=== PATIENT | female | born 1940 | race Caucasian/White ===

== ENCOUNTER 2016-08-03 04:52 | Emergency (ER) | payer OTHER ==
[2016-08-03] MEDS ORDERED: ZOFRAN IV ONE (04:59)
[2016-08-03] MEDS ORDERED: DILAUDID IV ONE ×2 (04:59→08:15)
--- NOTE | 2016-08-03 05:03 | PROVIDER DOCUMENTATION ---
HPI-Musculoskeletal Pain/Inj <Paula Gayle - Last Filed: 08/03/16 08:45> - GENERAL Source: patient, family, EMS <Manoj Mancini - Last Filed: 08/04/16 05:12> - GENERAL Chief Complaint: Extremity Injury Stated Complaint: FALL, UPPER LEG PAIN Time Seen by Provider: 08/03/16 04:54 - HX OF PRESENT ILLNESS-MUSKULOSKELTAL Nature of Presenting Problem: pt fell while going to the bathroom and sustained a very painful injury to her right thigh and is unable to move it or bear wt. She denies other injuries (Manoj Mills) Review of Systems - Adult - REVIEW OF SYSTEMS - ADULT Constitutional: denies: chills, fever Eyes: denies: discharge Ears, Nose, Mouth & Throat: denies: ear pain, sinus problem, throat pain Cardiovascular: denies: chest pain Respiratory: denies: chronic cough, shortness of breath Gastrointestinal: denies: abdominal pain, diarrhea, nausea, vomiting Genitourinary: denies: dysuria, frequency, flank pain Musculoskeletal: denies: back pain, neck pain Integumentary: denies: rash Neurological: denies: headache/migraines, numbness, paresthesia All Other Systems: Reviewed and Negative <Manoj Mancini - Last Filed: 08/04/16 05:12> Past History - Adult - PAST MEDICAL HISTORY-ADULT Review of Records: reports: Old Records Reviewed, Nursing Assessment Review, Medications Reviewed, Social history reviewed & non-contributory. 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 negative: scleral icterus Head, Ears, Nose, Mouth & Throat: normocephalic/atraumatic Neck: non-tender, full range of motion, supple, normal inspection Respiratory: chest non-tender, lungs clear, normal breath sounds, no pleuratic chest pain, no respiratory distress, no accessory muscle use Cardiovascular: regular rate, rhythm, no edema, no murmur Abdominal Exam: normal bowel sounds, non tender, soft, no organomegaly, no pulsatile mass Back Exam: normal inspection, no CVA tenderness, no vertebral tenderness Extremity: other (marked tenderness of most of right thigh. Pt has right distal foot amputated) Integumentary: normal color, warm/dry Neurologic: geographic information scientist II-XII nml as tested, grossly normal, no motor/sensory deficits Psych/Mental Status: normal mood/affect, normal thought content, normal thought process, oriented x 3 <Manoj Manciin - Last Filed: 08/04/16 05:12> Progress - EKG 1 Time of EKG reading by physician:: 06:13 EKG Read and Signed by:: Jesse Tong EKG Interpretation (*Must complete 3 of following elements*): Abnormal Rate: 49 Rhythm: sinus bradycardia QRS: normal Comments: Atrial fibrillation w/slow ventricular response <Paula Gayle - Last Filed: 08/03/16 08:45> - CHANGE OF SHIFT REPORT (ED Provider) Report Given and Care Transferred to:: Dr Tong Time of Transfer: 06:00 Items Pending: Labs, XRAY Results Tentative Impression of Patient: right femur fracture <Manoj Mancini - Last Filed: 08/04/16 05:12> Departure <Paula Gayle - Last Filed: 08/03/16 08:45> <Manoj Mancini - Last Filed: 08/04/16 05:12> - Departure [facility]position[facility] Condition: Fair Referrals: Byron Lyons MD [Primary Care Provider] - Physician Attestation
[2016-08-03 06:35] LABS: MANUAL DIFF NEEDED? NO
[2016-08-03 06:44] LABS: BASO% 0.8 % (0.0-0.8); EOS# 0.27 X1000 (0.0-0.7); EOS% 3.2 % (0.0-10.0); HEMATOCRIT 33.8 % (37.0-47.0); HEMOGLOBIN 10.6 g/dL (12.0-16.0); LYMPH# 1.47 X1000 (1.2-3.4); LYMPH% 17.6 % (20.5-51.1); MCH 31.2 PG (27-31); MCHC 31.4 g/dL (33-37); MCV 99.4 FL (81-99); MONO# 0.74 X1000 (0.11-0.59); MONO% 8.9 % (1.7-9.3); MPV 9.4 FL (7.4-10.4); NEUT% 69.5 % (42.2-75.2); PLT 257 X1000 (130-400)
[2016-08-03 06:45] LABS: URINE CULTURE NEEDED? NO; URINE SOURCE CATH
[2016-08-03 06:46] LABS: URINE MICRO REVIEW NEEDED? NO
[2016-08-03 06:50] LABS: INR 5.89; PROTIME 63.6 Seconds (9.2-11.7)
[2016-08-03 06:51] LABS: BILIRUBIN URINE NEGATIVE (NEGATIVE); BLOOD URINE NEGATIVE (NEGATIVE); COLOR YELLOW; GLUCOSE URINE NEGATIVE (NEGATIVE); LEUKOCYTES URINE NEGATIVE (NEGATIVE); NITRITE URINE NEGATIVE (NEGATIVE); PROTEIN URINE NEGATIVE (NEGATIVE); SP GRAVITY URINE 1.019; TURBIDITY URINE CLEAR (CLEAR); UROBILINOGEN URINE NORMAL (NORMAL)
[2016-08-03 06:53] LABS: UR EPITHELIAL CELLS <10 /HPF (<10); URINE BACTERIA NEGATIVE /HPF; URINE RBC <10 /HPF (<10); URINE WBC <10 /HPF (<10)
[2016-08-03 07:12] LABS: ALBUMIN 3.6 g/dL (3.5-5.0); CALCIUM 9.1 mg/dL (8.8-10.2); POTASSIUM 4.3 mmol/L (3.5-5.1); TOTAL BILIRUBIN 0.23 mg/dL (0.20-1.00); TOTAL PROTEIN 6.2 g/dL (6.3-8.3)
--- NOTE | 2016-08-03 07:36 | EKG Report ---
Test Performed on : 08/03/2016 06:13:33 AM Test Reason : preop Blood Pressure : / mmHG Vent. Rate : 049 BPM Atrial Rate : 053 BPM P-R Int : 000 ms QRS Dur : 094 ms QT Int : 490 ms P-R-T Axes : 000 040 052 degrees QTc Int : 442 ms Atrial fibrillation. with slow ventricular response. Abnormal ECG When compared with ECG of 17-DEC-2014 12:38, Nonspecific T wave abnormality no longer evident in Lateral leads Unconfirmed Result
[2016-08-03 07:56] VITALS: BP 126/56
--- NOTE | 2016-08-03 09:13 | Diag Imaging Result Document ---
PROCEDURE NAME: FEMUR MIN 2 VIEWS RIGHT - 08/03/2016 PLAIN RADIOGRAPHS OF THE RIGHT FEMUR, 4 VIEWS: COMPARISON: None available. FINDINGS: The bones are osteopenic. There is a fracture through the mid shaft of the femur with significant posterior displacement of the distal fragment. There is a questionable small cortical defect at the inferior pubic ramus on the right, which may indicate a nondisplaced fracture. There is also a small cortical defect involving the distal metaphysis of the femur suggesting a separate nondisplaced fracture. There is atherosclerotic calcification in the thigh on the right. IMPRESSION: Fractures involving the femur and questionable fracture of the inferior pubic ramus on the right as described.
--- NOTE | 2016-08-03 12:10 | Diag Imaging Result Document ---
PROCEDURE NAME: CHEST-1 VIEW - 08/03/2016 SINGLE FRONTAL RADIOGRAPH OF THE CHEST: COMPARISON: 02/13/2015. FINDINGS: Inspiration is suboptimal. Otherwise, the lungs are grossly clear. There is no definite pleural fluid collection. Cardiac silhouette appears somewhat prominent but stable. Central vasculature is unremarkable. IMPRESSION: Stable cardiomegaly and low lung volumes but no definite acute pathology.
== END 2016-08-03 09:20 | disposition short-term general hospital (02) ==
LOC: EDBD → ED 04:52
DX: S72.301A Unspecified fracture of shaft of right femur, initial encounter for closed fracture (principal); R94.31 Abnormal electrocardiogram [ECG] [EKG]; M79.651 Pain in right thigh; R06.02 Shortness of breath; R07.89 Other chest pain; I48.91 Unspecified atrial fibrillation; I50.9 Heart failure, unspecified; M19.90 Unspecified osteoarthritis, unspecified site; Z79.899 Other long term (current) drug therapy; G89.29 Other chronic pain; G30.9 Alzheimer's disease, unspecified; F02.80 Dementia in other diseases classified elsewhere, unspecified severity, without behavioral disturbance, psychotic disturbance, mood disturbance, and anxiety; F32.9 Major depressive disorder, single episode, unspecified; Z79.82 Long term (current) use of aspirin; Z79.01 Long term (current) use of anticoagulants; Z89.431 Acquired absence of right foot; W19.XXXA Unspecified fall, initial encounter
CPT/HCPCS: 71010; 80053; 81001; 85025; 85610; 86850; 86900; 86901; 93005; 96374; 96376; J1170; J2405

== ENCOUNTER 2018-07-25 19:45 | Inpatient (IN) ==
[2018-07-25 20:17] LABS: BASO# 0.02 X1000 (0.0-0.2); BASO% 0.3 % (0.0-0.8); EOS# 0.05 X1000 (0.0-0.7); EOS% 0.6 % (0.0-10.0); HEMOGLOBIN 10.6 g/dL (12.0-16.0); IMM GRAN# 0.04 X1000 (0.0-0.04); IMM GRAN% 0.5 % (0.0-0.5); LYMPH# 1.56 X1000 (1.2-3.4); LYMPH% 19.8 % (20.5-51.1); MCH 31.5 PG (27-31); MCHC 32.1 g/dL (33-37); MCV 98.2 FL (81-99); MONO# 0.98 X1000 (0.11-0.59); MONO% 12.5 % (1.7-9.3); MPV 9.1 FL (7.4-10.4); NEUT# 5.21 X1000 (1.4-6.5); NEUT% 66.3 % (42.2-75.2); PLT 270 X1000 (130-400); RBC 3.36 XMIL (4.2-5.4); WBC 7.86 X1000 (4.8-10.8)
--- NOTE | 2018-07-25 20:35 | Diag Imaging Result Doc PS360 ---
EXAM: CT HEAD W/O CONTRAST INDICATION: stroke like TECHNIQUE: This exam was performed using automated exposure control, adjustment of mA or kV according to patient size, and/or use of iterative reconstruction technique. COMPARISON: None. FINDINGS: There is excessive motion artifact, which may limit sensitivity. There is patchy low attenuation in the periventricular and subcortical white matter suggesting moderate to advanced microangiopathy. There is probably mild focal encephalomalacia involving the left frontal lobe. There is age-appropriate diffuse brain atrophy. There is no definite acute infarct given the limited sensitivity of CT versus MRI. There is no discrete intracranial mass, mass effect, or intracranial hemorrhage. The surrounding soft tissues and bony structures are essentially unremarkable. IMPRESSION: Chronic appearing changes as described but no definite acute intracranial pathology by CT. Electronically signed by Isak Vazquez 07/25/2018 8:33 PM
[2018-07-25 20:36] LABS: AGAP 16; ALBUMIN 3.7 g/dL (3.5-5.0); ALKALINE PHOSPHATASE 74 U/L (32-104); BUN 15 mg/dL (8-22); CHLORIDE 100 mmol/L (98-107); COSMO 285; CREATININE 0.8 mg/dL (0.5-0.9); ESTIMATED GFR > 60; GLUCOSE 126 mg/dL (70-104); GOT 16 U/L (10-30); GPT 6 U/L (10-36); INR 1.34; POTASSIUM 3.6 mmol/L (3.5-5.1); PROTIME 17.3 Seconds (11.0-16.0); SODIUM 142 mmol/L (136-145); TCO2 26 mmol/L (25-35); TOTAL PROTEIN 6.7 g/dL (6.3-8.3)
[2018-07-25 20:37] LABS: PTT 54.1 Seconds (22.3-41.8)
[2018-07-25 20:40] LABS: BILIRUBIN URINE NEGATIVE (NEGATIVE); BLOOD URINE 2+ (NEGATIVE); CLARITY SL. CLOUDY (CLEAR); COLOR YELLOW; GLUCOSE URINE NEGATIVE (NEGATIVE); KETONE URINE 1+(Small) mg/dL (NEGATIVE); LEUKOCYTES URINE NEGATIVE (NEGATIVE); NITRITE URINE NEGATIVE (NEGATIVE); UROBILINOGEN URINE NORMAL
[2018-07-25 20:41] LABS: URINE BACTERIA 3+ /HFP; URINE CAST NONE SEEN /LPF; URINE CRYSTAL NONE SEEN /HPF; URINE EPITHELIAL CELLS <10 /HPF (<10); URINE RBC <10 /HPF (<10); URINE SOURCE CATH; URINE WBC <10 /HPF (<10); URINE YEAST NONE SEEN /HPF
[2018-07-25 20:49] LABS: UR AMPHETAMINES QUAL NONE DETECTED (NONE DETECT); UR BARBITUATES QUAL NONE DETECTED (NONE DETECT); UR BENZODIAZEPIN QUAL NONE DETECTED (NONE DETECT); UR CANNABINOIDS QUAL NONE DETECTED (NONE DETECT); UR COCAINE QUAL NONE DETECTED (NONE DETECT); UR METHADONE QUAL NONE DETECTED (NONE DETECT); UR METHAMPHETAMINE QUAL NONE DETECTED (NONE DETECT); UR OPIATES QUAL PRESUMPTIVE POSITIVE (NONE DETECT); UR OXYCODONE QUAL NONE DETECTED (NONE DETECT); UR PCP QUAL NONE DETECTED (NONE DETECT); UR PROPOXYPHENE QUAL NONE DETECTED (NONE DETECT); UR TCA QUAL NONE DETECTED (NONE DETECT)
--- NOTE | 2018-07-25 21:10 | Diag Imaging Result Doc PS360 ---
EXAM: CHEST-PORTABLE INDICATION: stroke like TECHNIQUE: One view COMPARISON: 04/22/2018 FINDINGS: Inspiration is very suboptimal. The central vasculature appears somewhat prominent. This is in part due to crowding from poor inspiration but there is also probably a component of pulmonary venous congestion. There is no discrete pleural fluid collection or pneumothorax. Cardiac silhouette is borderline prominent but stable. IMPRESSION: Low lung volumes and possible mild pulmonary venous congestion. Electronically signed by Isak Vazquez 07/25/2018 9:08 PM
[2018-07-25] MEDS ORDERED: ZOFRAN IV ONE (21:45)
[2018-07-25] MEDS ORDERED: APRESOLINE IV ONE (21:46)
[2018-07-25 23:13] LABS: BE 0.4 mmoll (-3.0-3.0); BLOOD TYPE ARTERIAL; HCO3-(ACT) 25.2 mmoll (20.0-26.0); METHB 1.6 % (0.0-1.5); O2HB 94.3 % (95.0-99.0); PO2(98.6) 114 mmHg (60-100); SAMPLE BLOOD; SAO2 97.5 % (95.0-100.0); THB 11.9 g/dL (11.5-17.4)
[2018-07-25 23:15] LABS: ALLEN TEST YES; MODALITY CANNULA; PCO2(98.6) 112 mmHg (35-45); pH(98.6) 7.08 (7.35-7.45)
[2018-07-26 00:41] LABS: BE 3.6 mmoll (-3.0-3.0); BLOOD TYPE ARTERIAL; HCO3-(ACT) 27.7 mmoll (20.0-26.0); METHB 1.4 % (0.0-1.5); O2(CT) 15.5 mL/dL (15.0-23.0); O2HB 95.9 % (95.0-99.0); PO2(98.6) 154 mmHg (60-100); SAMPLE BLOOD; SAO2 99.4 % (95.0-100.0); THB 11.3 g/dL (11.5-17.4); pH(98.6) 7.31 (7.35-7.45)
[2018-07-26 01:06] LABS: ALLEN TEST YES; MODALITY BI PAP; PCO2(98.6) 62 mmHg (35-45)
[2018-07-26] MEDS ORDERED: NS 1,000 ML IV ONE (01:08)
--- NOTE | 2018-07-26 02:14 | PROVIDER DOCUMENTATION ---
This chart was entered by Vivienne Chacko Scribe, acting as scribe for Landon Rea MD. HPI-Neurological Disorder - General Chief Complaint: Stroke-Like Symptoms Stated Complaint: "stroke like symptoms" Time Seen by Provider: 07/25/18 20:01 Source: EMS Allergies/Adverse Reactions: Patient Allergies Allergy/AdvReac Type Severity Reaction Status Date / Time Iodinated Contrast- Oral and Allergy Unknown Verified 04/22/18 16:18 IV Dye [IV Dye] Latex, Natural Rubber Allergy RASH Verified 04/22/18 16:18 Home Medications: Home Medication List Medication Instructions Recorded Confirmed Last Taken Type Calcium Citrate/Vitamin D 1 each PO DAILY 09/06/16 04/22/18 01/23/18 05:00 History [Citracal + D] Magnesium 250 mg PO DAILY 09/06/16 04/22/18 01/23/18 05:00 History Acetaminophen [Tylenol] 650 mg PO Q6H PRN PRN #0 tablet 09/09/16 04/22/18 17:00 Rx Spironolactone 25 mg PO DAILY #30 tablet 09/09/16 04/22/18 01/23/18 05:00 Rx Losartan Potassium 100 mg PO DAILY 12/26/17 04/22/18 01/22/18 08:00 History Furosemide [Lasix] 40 mg PO BID 01/16/18 04/22/18 01/23/18 05:00 History Amoxicillin/Pot Clavulanate 875 mg PO BID tablet 01/19/18 04/22/18 01/22/18 08: 00 Rx [Augmentin] Carvedilol 6.25 mg PO BID #60 tab 01/19/18 04/22/18 01/23/18 05:00 Rx Hydralazine [Apresoline] 50 mg PO TID #90 tab 01/19/18 04/22/18 01/23/18 05:00 Rx Hydrocodone/APAP 7.5 mg/325 mg 1 each PO Q6H PRN #12 tablet 01/23/18 04/22/18 Unknown Rx [Linn-7.5] Apixaban [Eliquis] 5 mg PO BID 04/22/18 04/22/18 Unknown History CefDINIR [Omnicef] 300 mg PO BID #10 cap 04/22/18 Unknown Rx - History of Present Illness-Neuro Nature of Presenting Problem: Patient is a 78 year old female who presents to the ED via EMS with stroke like symptoms. EMS states patient has a left side gaze and will not follow commands. EMS states patient's daughter stated patient was last seen normal 3 hours ago. EMS states patient is currently on Eliquis but does not take it like she should. Patient is alert but does not follow commands. Severity: reports: moderate Onset/Duration: reports: 1-3 hours ago (3 hours ago) Timing: reports: still present Context: reports: other (left side gaze) Character of Altered Mental Status: reports: N/A Any recent trauma/injury?: reports: none Cognitive Baseline: alert but confused Gait Baseline: walks without assistance Associated Symptoms: reports: denies symptoms Similar Symptoms Previously?: No Recently seen or treated by another doctor?: No Review of Systems - Adult - REVIEW OF SYSTEMS - ADULT ROS:: unobtainable per condition Constitutional: reports: no symptoms reported Eyes: reports: no symptoms reported Ears, Nose, Mouth & Throat: reports: no symptoms reported Cardiovascular: reports: no symptoms reported Respiratory: reports: no symptoms reported Gastrointestinal: reports: no symptoms reported Genitourinary: reports: no symptoms reported Musculoskeletal: reports: no symptoms reported Integumentary: reports: no symptoms reported Neurological: reports: no symptoms reported Psychiatric: reports: no symptoms reported Endocrine: reports: no symptoms reported Hematologic/Lymphatic: reports: no symptoms reported Allergic/Immunologic: reports: no symptoms reported All Other Systems: Reviewed and Negative Past History - Adult - PAST MEDICAL HISTORY-ADULT Review of Records: reports: Nursing Assessment Review, Medications Reviewed, Social history reviewed & non-contributory. Major Childhood Illnesses: reports: denies history Cardiovascular: reports: cardiac disease, A-Fib, CHF (ECHO 11/12 50%), HTN Respiratory: reports: other (chf) Gastrointestinal: reports: denies history Obstetrical/Gynecological: reports: denies history Genitourinary: reports: denies history Musculoskeletal: reports: arthritis, chronic pain Neurological: reports: Alzheimer's, CVA, dementia, TIA Psychiatric: reports: depression Endocrine/Immune: reports: denies history Other Conditions: reports: denies history - PRIOR SURGERIES/PROCEDURES Surgical/Procedure History: reports: appendectomy, cholecystectomy, hysterectomy , other (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) - IMMUNIZATION STATUS Childhood Immunizations: See Nurse Assessment Flu Vaccine: See Nurse Assessment - FAMILY HISTORY Family History: reviewed, not pertinent - SOCIAL HISTORY Smoking: cigarettes (former) Substance Use: denies Living Situation: family Physical Exam- Neurological - Physical Exam-Neuro General Appearance: alert Eye Exam: right eye: normal inspection, left eye: other (pinpoint pupil ) HENMT: normal ENT inspection Head Injury: no evidence of injury Respiratory: chest non-tender, lungs clear, normal breath sounds Cardiovascular: normal peripheral pulses, regular rate, rhythm Abdominal Exam: normal bowel sounds, non tender, soft Extremity: other (3 + pitting edema to RLE and 2 + pitting edema to LLE) senior human resources representative Exam: other (pinpoint pupil to left eye and conjugate gaze to left) Motor/Sensory: other (unable to assess per patient's condition) Neurologic: other (unable to assess per patient's condition) Integumentary: normal color, normal turgor, warm/dry Psych/Mental Status: other (unable to assess per patient's condition) Progress - PLAN OF CARE/RESULTS Progress/Plan/Lab Results: Vital Signs - 8 hr 07/25/18 20:14 07/25/18 21:12 07/25/18 21:27 Temperature 98.9 F Pulse Rate 74 58 L Respiratory Rate 22 21 Blood Pressure 205/97 228/97 O2 Sat by Pulse Oximetry 95 98 07/25/18 21:30 07/25/18 21:47 07/25/18 22:12 Temperature 98.9 F Pulse Rate 87 Respiratory Rate 16 Blood Pressure 224/135 O2 Sat by Pulse Oximetry 97 07/25/18 22:59 07/25/18 23:16 07/25/18 23:19 Temperature Pulse Rate 80 71 Respiratory Rate 7 L 9 L Blood Pressure 124/70 128/62 O2 Sat by Pulse Oximetry 100 100 96 07/25/18 23:20 07/25/18 23:30 07/25/18 23:31 Temperature Pulse Rate 77 73 76 Respiratory Rate 8 L 7 L 6 L Blood Pressure 127/50 O2 Sat by Pulse Oximetry 100 99 100 07/25/18 23:40 07/25/18 23:46 07/25/18 23:50 Temperature Pulse Rate 74 73 73 Respiratory Rate 26 H 20 24 Blood Pressure 115/47 O2 Sat by Pulse Oximetry 100 100 100 07/26/18 00:00 07/26/18 00:01 07/26/18 00:10 Temperature Pulse Rate 72 67 66 Respiratory Rate 20 27 H 21 Blood Pressure 112/48 O2 Sat by Pulse Oximetry 100 100 100 07/26/18 00:17 07/26/18 00:20 07/26/18 00:30 Temperature Pulse Rate 78 88 88 Respiratory Rate 17 15 17 Blood Pressure 157/77 O2 Sat by Pulse Oximetry 98 100 96 07/26/18 00:39 07/26/18 00:40 07/26/18 00:47 Temperature Pulse Rate 76 76 68 Respiratory Rate 21 18 19 Blood Pressure 132/78 162/68 O2 Sat by Pulse Oximetry 99 83 L 07/26/18 00:50 07/26/18 01:00 07/26/18 01:02 Temperature Pulse Rate 68 67 69 Respiratory Rate 23 26 H 28 H Blood Pressure 156/65 O2 Sat by Pulse Oximetry 70 L Laboratory Results - last 24 hr 07/25/18 07/25/18 07/25/18 20:05 20:05 20:05 WBC 7.86 RBC 3.36 L Hgb 10.6 L Hct 33.0 L MCV 98.2 MCH 31.5 H MCHC 32.1 L RDW Std Deviation 13.0 Plt Count 270 MPV 9.1 Immature Gran % (Auto) 0.5 Neut % (Auto) 66.3 Lymph % (Auto) 19.8 L Dukes % (Auto) 12.5 H Eos % (Auto) 0.6 Baso % (Auto) 0.3 Immature Gran # (Auto) 0.04 Neut # (Auto) 5.21 Lymph # (Auto) 1.56 Dukes # (Auto) 0.98 H Eos # (Auto) 0.05 Baso # (Auto) 0.02 PT INR PTT (Actin FS) Specimen Type Sample Site pH pCO2 pO2 HCO3 Base Excess Oxyhemoglobin ABG O2 Sat (Calculated) ABG O2 Saturation ABG Carboxyhemoglobin ABG Methemoglobin Kenny Test A-a O2 Difference Total Hemoglobin Lactate Blood Gas Modality FiO2 % Sodium 142 Potassium 3.6 Chloride 100 Carbon Dioxide 26 Anion Gap 16 BUN 15 Creatinine 0.8 Estimated GFR/1.73 m2 > 60 BUN/Creatinine Ratio 19 Glucose 126 H POC Glucose Calculated Osmolality 285 Calcium 10.0 Total Bilirubin 0.70 AST 16 ALT 6 L Alkaline Phosphatase 74 Troponin T < 0.010 Idv-[id number]-Wbzsxoketpa Pept Total Protein 6.7 Albumin 3.7 Globulin 3.0 Albumin/Globulin Ratio 1.0 Urine Source Urine Color Urine Clarity Urine pH Ur Specific [place] Urine Protein Urine Ketones Urine Blood Urine Nitrite Urine Bilirubin Urine Urobilinogen Urine Microscopic RBC Urine WBC Urine Microscopic WBC Ur Epithelial Cells Urine Crystals Urine Bacteria Urine Casts Urine Yeast Urine Glucose Urine Opiates Screen Ur Oxycodone Screen Urine Methadone Screen U Propoxyphene Qual Ur Barbituates Screen Ur Tricyclics Screen Ur Phencyclidine Scrn Ur Amphetamines Screen U Methamphetamines Scrn U Benzodiazepines Scrn Urine Cocaine Screen U Cannabinoids Screen 07/25/18 07/25/18 07/25/18 20:05 20:05 20:20 WBC RBC Hgb Hct MCV MCH MCHC RDW Std Deviation Plt Count MPV Immature Gran % (Auto) Neut % (Auto) Lymph % (Auto) Dukes % (Auto) Eos % (Auto) Baso % (Auto) Immature Gran # (Auto) Neut # (Auto) Lymph # (Auto) Dukes # (Auto) Eos # (Auto) Baso # (Auto) PT 17.3 H INR 1.34 PTT (Actin FS) 54.1 H Specimen Type Sample Site pH pCO2 pO2 HCO3 Base Excess Oxyhemoglobin ABG O2 Sat (Calculated) ABG O2 Saturation ABG Carboxyhemoglobin ABG Methemoglobin Kenny Test A-a O2 Difference Total Hemoglobin Lactate Blood Gas Modality FiO2 % Sodium Potassium Chloride Carbon Dioxide Anion Gap BUN Creatinine Estimated GFR/1.73 m2 BUN/Creatinine Ratio Glucose POC Glucose Calculated Osmolality Calcium Total Bilirubin AST ALT Alkaline Phosphatase Troponin T [id number]-Zajrwpfvkuy Pept 41520 H Total Protein Albumin Globulin Albumin/Globulin Ratio Urine Source CATH Urine Color YELLOW Urine Clarity SL. CLOUDY A Urine pH 5.0 Ur Specific [place]flower 1.020 Urine Protein 3+(500 mg/dL) A Urine Ketones 1+(Small) A Urine Blood 2+ A Urine Nitrite NEGATIVE Urine Bilirubin NEGATIVE Urine Urobilinogen NORMAL Urine Microscopic RBC <10 Urine WBC NEGATIVE Urine Microscopic WBC <10 Ur Epithelial Cells <10 Urine Crystals NONE SEEN Urine Bacteria 3+ Urine Casts NONE SEEN Urine Yeast NONE SEEN Urine Glucose NEGATIVE Urine Opiates Screen Ur Oxycodone Screen Urine Methadone Screen U Propoxyphene Qual Ur Barbituates Screen Ur Tricyclics Screen Ur Phencyclidine Scrn Ur Amphetamines Screen U Methamphetamines Scrn U Benzodiazepines Scrn Urine Cocaine Screen U Cannabinoids Screen 07/25/18 07/25/18 07/25/18 20:20 20:45 22:10 WBC RBC Hgb Hct MCV MCH MCHC RDW Std Deviation Plt Count MPV Immature Gran % (Auto) Neut % (Auto) Lymph % (Auto) Dukes % (Auto) Eos % (Auto) Baso % (Auto) Immature Gran # (Auto) Neut # (Auto) Lymph # (Auto) Dukes # (Auto) Eos # (Auto) Baso # (Auto) PT INR PTT (Actin FS) Specimen Type ARTERIAL Sample Site R RADIAL pH 7.08 L* pCO2 112 H* pO2 114 H HCO3 25.2 Base Excess 0.4 Oxyhemoglobin 94.3 L ABG O2 Sat (Calculated) 16.0 ABG O2 Saturation 97.5 ABG Carboxyhemoglobin 1.80 ABG Methemoglobin 1.6 H Kenny Test YES A-a O2 Difference 60.0 Total Hemoglobin 11.9 Lactate 0.80 Blood Gas Modality CANNULA FiO2 % 44.0 Sodium Potassium Chloride Carbon Dioxide Anion Gap BUN Creatinine Estimated GFR/1.73 m2 BUN/Creatinine Ratio Glucose POC Glucose 124 H Calculated Osmolality Calcium Total Bilirubin AST ALT Alkaline Phosphatase Troponin T [id number]-B-Sbjvuwdtspc Pept Total Protein Albumin Globulin Albumin/Globulin Ratio Urine Source Urine Color Urine Clarity Urine pH Ur Specific [place] Urine Protein Urine Ketones Urine Blood Urine Nitrite Urine Bilirubin Urine Urobilinogen Urine Microscopic RBC Urine WBC Urine Microscopic WBC Ur Epithelial Cells Urine Crystals Urine Bacteria Urine Casts Urine Yeast Urine Glucose Urine Opiates Screen PRESUMPTIVE POSITIVE A Ur Oxycodone Screen NONE DETECTED Urine Methadone Screen NONE DETECTED U Propoxyphene Qual NONE DETECTED Ur Barbituates Screen NONE DETECTED Ur Tricyclics Screen NONE DETECTED Ur Phencyclidine Scrn NONE DETECTED Ur Amphetamines Screen NONE DETECTED U Methamphetamines Scrn NONE DETECTED U Benzodiazepines Scrn NONE DETECTED Urine Cocaine Screen NONE DETECTED U Cannabinoids Screen NONE DETECTED 07/26/18 00:15 WBC RBC Hgb Hct MCV MCH MCHC RDW Std Deviation Plt Count MPV Immature Gran % (Auto) Neut % (Auto) Lymph % (Auto) Dukes % (Auto) Eos % (Auto) Baso % (Auto) Immature Gran # (Auto) Neut # (Auto) Lymph # (Auto) Dukes # (Auto) Eos # (Auto) Baso # (Auto) PT INR PTT (Actin FS) Specimen Type ARTERIAL Sample Site R RADIAL pH 7.31 L pCO2 62 H* pO2 154 H HCO3 27.7 H Base Excess 3.6 H Oxyhemoglobin 95.9 ABG O2 Sat (Calculated) 15.5 ABG O2 Saturation 99.4 ABG Carboxyhemoglobin 2.10 ABG Methemoglobin 1.4 Kenny Test YES A-a O2 Difference 54.0 Total Hemoglobin 11.3 L Lactate 1.10 Blood Gas Modality BI PAP FiO2 % 40.0 Sodium Potassium Chloride Carbon Dioxide Anion Gap BUN Creatinine Estimated GFR/1.73 m2 BUN/Creatinine Ratio Glucose POC Glucose Calculated Osmolality Calcium Total Bilirubin AST ALT Alkaline Phosphatase Troponin T Dof-F-Ybclssngycg Pept Total Protein Albumin Globulin Albumin/Globulin Ratio Urine Source Urine Color Urine Clarity Urine pH Ur Specific [place] Urine Protein Urine Ketones Urine Blood Urine Nitrite Urine Bilirubin Urine Urobilinogen Urine Microscopic RBC Urine WBC Urine Microscopic WBC Ur Epithelial Cells Urine Crystals Urine Bacteria Urine Casts Urine Yeast Urine Glucose Urine Opiates Screen Ur Oxycodone Screen Urine Methadone Screen U Propoxyphene Qual Ur Barbituates Screen Ur Tricyclics Screen Ur Phencyclidine Scrn Ur Amphetamines Screen U Methamphetamines Scrn U Benzodiazepines Scrn Urine Cocaine Screen U Cannabinoids Screen Orders Category Date Time Status Cardiac Monitoring DIRECTED Care 07/25/18 19:46 Active Finger Stick Blood Sugar (ED) DIRECTED Care 07/25/18 19:46 Active Misc. NRSG Communication Order DIRECTED Care 07/25/18 19:46 Active Saline Loc NOW Care 07/25/18 19:46 Active CHEST-PORTABLE [RAD] Stat Exams 07/25/18 19:[address] HEAD W/O CONTRAST [CT] Stat Exams 07/25/18 19:46 Completed ABG [RESP] Routine Lab 07/25/18 22:10 Completed ABG [RESP] Routine Lab 07/26/18 00:15 Completed BNP [PRO B-NATRIURETIC PEPTIDE] Stat Lab 07/25/18 20:05 Completed CBC WITH ELECTRONIC DIFF [HEME] Stat Lab 07/25/18 20:05 Completed COMPREHENSIVE METABOLIC PANEL [CHEM] Stat Lab 07/25/18 20:05 Completed PROTIME WITH INR [COAG] Stat Lab 07/25/18 20:05 Completed PTT [COAG] Stat Lab 07/25/18 20:05 Completed TROPONIN T Stat Lab 07/25/18 20:[address] W/POSS RFLX CULT [URINALYSIS] Stat Lab 07/25/18 20:20 Completed URINE CULTURE [RM] Routine Lab 07/25/18 20:41 Received URINE DRUG SCREEN PL Stat Lab 07/25/18 20:20 Completed Hydralazine [Apresoline] Med 07/25/18 21:46 Discontinued 10 mg IV NOW ONE Ondansetron [Zofran] Med 07/25/18 21:45 Discontinued 4 mg IV NOW ONE BIPAP Stat Oth 07/25/18 22:55 Active EKG [EKG] Stat Ther 07/25/18 19:46 Ordered Result Diagrams: 07/25/18 20:05 07/25/18 20:05 - REASSESSMENT Reassessment #1 Time Reassessed: 20:58 Status: other (patient's family reports patient's last normal was 2 days ago.) - EKG 1 Time of EKG reading by physician:: 20:07 EKG Read and Signed by:: Landon Rea EKG Interpretation (*Must complete 3 of following elements*): Abnormal Rate: 62 Rhythm: atrial fibrillation Comments: nonspecific ST and T wave abnormality. - XRAY 1 XRAY Study: Chest Impression: See EMR Report (EXAM: CHEST-PORTABLE INDICATION: stroke like TECHNIQUE: One view COMPARISON: 04/22/2018 FINDINGS: Inspiration is very suboptimal. The central vasculature appears somewhat prominent. This is in part due to crowding from poor inspiration but there is also probably a component of pulmonary venous congestion. There is no discrete pleural fluid collection or pneumothorax. Cardiac silhouette is borderline prominent but stable. IMPRESSION: Low lung volumes and possible mild pulmonary venous congestion. Electronically signed by Isak Vazquez 07/25/2018 9:08 PM 07/25/182107 Interpreting Physician: Isak Vazquez MD Dictated Date/Time: 07/25/182106 cc: Landon Rea MD; Byron Lyons MD) - CT/MRI 1 CT Study: Head Impression: See EMR Report ( EXAM: CT HEAD W/O CONTRAST INDICATION: stroke like TECHNIQUE: This exam was performed using automated exposure control, adjustment of mA or kV according to patient size, and/or use of iterative reconstruction technique. COMPARISON: None. FINDINGS: There is excessive motion artifact, which may limit sensitivity. There is patchy low attenuation in the periventricular and subcortical white matter suggesting moderate to advanced microangiopathy. There is probably mild focal encephalomalacia involving the left frontal lobe. There is age-appropriate diffuse brain atrophy. There is no definite acute infarct given the limited sensitivity of CT versus MRI. There is no discrete intracranial mass, mass effect, or intracranial hemorrhage. The surrounding soft tissues and bony structures are essentially unremarkable. IMPRESSION: Chronic appearing changes as described but no definite acute intracranial pathology by CT. Electronically signed by Isak Vazquez 07/25/2018 8:33 PM 07/25/[id number] Interpreting Physician: Isak Vazquez MD Dictated Date/Time: 07/25/182029 cc: Landon Rea MD; Byron Lyons MD) - CONSULTS/PCP/HOSPITALIST Notification #1 *Consult/PCP/Hospitalist*: [facility] Time Discussed: 20:59 Reason/Comments: Dr. Rea consulted with [facility] about patient. Consult Disposition: other (will page Neuro.) #2 Consult: Dr. Romano ([place]) Time Discussed: 21:10 Reason/Comments: Dr. Rea consulted with Dr. Romano about patient. Consult Disposition: other (Dr. Romano states patient needs supportive care.) #3 Consult: Dr. Davis Time Discussed: 21:26 Reason/Comments: Dr. Rea consulted with Dr. Davis about patient. Consult Disposition: Admit Departure - Departure Date of Disposition Decision: 07/25/18 Time of Disposition Decision: 21:33 DIAGNOSIS: CVA (cerebral vascular accident) Disposition: ADMITTED INPATIENT 09 Certified Medical Emergency: Emergent Condition: Fair Referrals and Follow-Ups: Byron Lyons MD [Primary Care Provider] - - Critical Care Note This patient required my direct & personal management of CC.: Yes Total Time (mins): 32 Critical Care Statement: This patient required my direct personal management to treat or rule out processes, the absence of which, could potentiallly result in sudden, clinically significant life or limb threatening deterioration. Attestation - Physician/ LUPILLO Attestation The physician spent face to face time with patient:: Yes Advanced Practice Provider documentation review:: Supervising physician onsite and consulted in the evaluation and care of this patient. The physician did have a face to face encounter with the patient. - NIH Stroke Scale NIH Type: Initial Evaluation Level of Consciousness: 2-Stuporous, requires repeat stimulation to attend LOC Questions (ask month and age): 2-Both Incorrect LOC Commands (ask to open & close eyes;make a fist, let go): 1-Obeys One Correctly Best Gaze (horizontal eye movement): 1-Partial Gaze Palsy (gaze is abnormal in one or both eyes) Visual (use finger movement, counting or visual threat): 0-No Visual Loss Facial Palsy (show teeth or raise eyebrows & close eyes tght: 0-Symmetrical Movement Motor Function-left arm: 2-Some Effort Against [place]flower Motor Function-right arm: 0-Normal Motor Function-left le-No Effort Against [place] Motor Function-right le-No Effort Against [place] Limb Ataxia(coqjly-tymz-fcuezz, or heel to ramsay): 0-Untestable Sensory(pin prick to face,arms,trunk,legs-compare side/side): 0-No Ataxia Best Language(name item/read sentence.Ex-Down to Earth): 2-Severe Aphasia Dysarthria(Pt read words or say words Ex.Mama,Tip-Top,Thanks: 2-Near Unintelligible Extinction and Inattention: 1-Partial Neglect NIH Total Score: 19 Stroke tPA Guidelines - Consultation Candidate for:: NOT A CANDIDATE Reason not a candidate:: on blood thinners. time last seen normal was 2 days ago. hypertensive. This chart was documented by the indicated scribe, (Vivienne Chacko, Ruth Ann) and accurately reflects the services I performed and decisions made by me, Landon Rea MD, as attested by the provider's signature.
--- NOTE | 2018-07-26 04:21 | EKG Report ---
Test Performed on : 07/25/2018 8:07:51 PM Test Reason : stroke like Blood Pressure : / mmHG Vent. Rate : 062 BPM Atrial Rate : 079 BPM P-R Int : 000 ms QRS Dur : 068 ms QT Int : 440 ms P-R-T Axes : 000 040 103 degrees QTc Int : 446 ms Atrial fibrillation. Nonspecific ST and T wave abnormality Abnormal ECG When compared with ECG of 22-APR-2018 14:03, ST now depressed in Anterolateral leads Unconfirmed Result
[2018-07-26] MEDS ORDERED: NORCO-5 PO SCH (10:30)
[2018-07-26] MEDS ORDERED: NORCO-5 PO PRN (10:35)
[2018-07-26] MEDS: OFIRMEV 1000 MG/ISOTONIC SOLN 1,000 MG/100 ML BOTTLE IV PRN ×2 (11:53→21:40)
[2018-07-26] MEDS ORDERED: NS 1,000 ML ONE (11:56)
--- NOTE | 2018-07-26 14:34 | HISTORY AND PHYSICAL ---
ADDENDUM: Patient seen and examined by myself. Full note dictated and discussed with nurse practitioner. Patient presented to the ER. She does have a history of 2 previous strokes, congestive heart failure, and atrial fibrillation. She has a long history of smoking, but stopped several years ago. Upon presenting to the ER, they noted that her symptoms been going on for several hours. Therefore, she was observed. She also has recently been started on Eliquis. Currently, on exam, she is noted to move her left upper and lower extremities, but does not seem to be voluntarily moving her right upper and lower extremities. She is confused, currently on BiPAP. She does turn her head and look to loud noises. Discussed with the family that although she may be in pain currently, giving her pain medication would be problematic at best. She is not awake or alert enough to swallow, and IV medications could cause her to be more drowsy and cause us to miss symptom changes. PLAN: We will admit her to the hospital and will follow. Will begin workup for her acute stroke. cc: Roberto Davis MD
--- NOTE | 2018-07-26 16:15 | HISTORY AND PHYSICAL ---
CHIEF COMPLAINT: Altered mental status. HISTORY OF PRESENT ILLNESS: This is a 78-year-old female with a history of prior CVA, chronic atrial fibrillation, hypertension, diastolic heart failure preserved as well as history of a prior GI bleed on Xarelto. She presented to the emergency room with family members. The daughter stated that she was found after being found altered with a left sided gaze unable to follow commands and left-sided weakness. Reportedly, she was seen 3 hours prior in her normal state. On arrival to the emergency room blood pressures were 205/97 and 228/97 for which she was given 10 of hydralazine. Since the blood pressures have remained in the 1-teens to 150s over 60s to 70s. CT of the head without contrast revealed chronic appearing changes but no definite acute intracranial pathology. In reviewing the chart from the emergency room it looks like around midnight, she began having a decrease in her respiratory rate and she was subsequently placed on BiPAP. Saturations did get as low as 70 prior to BiPAP being placed and she currently remains on BiPAP. PAST MEDICAL HISTORY: 1. Chronic atrial fibrillation. 2. History of CVA x2. 3. Hypertension. 4. Chronic back pain due to severe degenerative disk disease on chronic narcotics. 5. Osteoarthritis. 6. Congestive heart failure with a preserved left ventricular ejection fraction. PAST SURGICAL HISTORY: 1. 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 2. Complete hysterectomy. 3. Breast reduction surgery. 4. Bilateral cataract surgery. SOCIAL HISTORY: She denies any alcohol or illicit drug use. She quit smoking tobacco in 2005. ALLERGIES: IV dye with unknown reaction. Latex which causes a rash. REVIEW OF SYSTEMS: Unable to obtain from the patient. PHYSICAL EXAMINATION: GENERAL: This is a 78-year-old female who is sitting up in the bed on BiPAP, in no distress. VITAL SIGNS: Blood pressure is 165/60 with a heart rate of 77, respirations 20 to 22, temperature is 98.3 degrees oral with O2 saturation 98-100% on BiPAP at 32%. HEENT: Left pupil is pinpoint. Right pupil is 1 to 2 and sluggishly reactive. She does have a gaze to the left. Sclerae are anicteric. Head is normocephalic, atraumatic. Mucous membranes are dry. NECK: Supple. Trachea midline. CARDIOVASCULAR: Irregularly irregular rate and rhythm. S1 and S2 are appreciated without appreciable murmur or gallop. She has bilateral lower extremity edema with peripheral pulses palpable x4. PULMONARY: Breath sounds are diminished throughout. Chest rises and falls symmetrically with respiration. BiPAP is in use. GASTROINTESTINAL: Abdomen is soft, nondistended, with bowel sounds in all 4 quadrants. GENITOURINARY: Gutierrez is patent to bedside bag with patrica urine draining. SKIN: Warm and dry. NEUROLOGIC: The patient is stuporous. She will open her eyes and look toward her name being called, but of note she is hard of hearing, does not have her hearing aids in. Therefore, we are unsure how much she hears to illicit a response. At present, she does not attempt to talk. She does not follow commands. She did open her eyes to pain as well as to her name being called. She has no effort against gravity to left upper or left lower extremity. She has a slight effort against gravity to her right arm and this is not consistent. She does withdraw from pain in all 4 extremities. LABORATORY DATA: WBC is 7.8 with hemoglobin 10.6, hematocrit 33, and platelets 270,000. Sodium is 142, potassium 3.6, BUN 15, creatinine 0.8. [place] 126[place] [address]. Urine drug screen is presumptive positive for opiates. ABGs pH is 7.3 with pCO2 of 62, PO2 154, and bicarb of 27.7. Urine culture reveals no growth. Chest x-ray reveals low lung volumes and possible mild pulmonary venous congestion. CT of the head reveals chronic appearing changes but no definite acute intracranial pathology. EKG reveals atrial fibrillation at a rate of 62. ASSESSMENT: 1. Cerebrovascular accident. 2. Acute hypercarbic respiratory failure. 3. History of hypertension. 4. Diastolic heart failure with a preserved ejection fraction. 5. Chronic atrial fibrillation. 6. Osteoarthritis with chronic back pain on chronic opiates. 7. History of gastrointestinal bleed on Xarelto. 8. Noncompliance with medications. PLAN: The patient has been admitted to the medical/surgical floor. BiPAP is in use as well as telemetry, which we will continue. We will continue neuro checks. She will remain NPO. We will allow for permissive hypertension accepting a blood pressure of 180/90 or less. We will obtain an echocardiogram and a carotid ultrasound bilateral. She has developed diarrhea over the last 12 hours. We will obtain a stool for clostridium difficile. We will continue to trend CBC and CMP. Further treatments pending hospital course. Dictated by CHERELLE Ragsdale for Roberto Davis MD This chart was documented by, CHERELLE Ragsdale and accurately reflects the services performed, treatment plan and medical decisions as attested by the providers signature Roberto Davis MD. cc: CHERELLE Ragsdale MD
[2018-07-26] MEDS ORDERED: ZOFRAN IV PRN (20:49)
--- NOTE | 2018-07-26 21:07 | Diag Imaging Result Doc PS360 ---
EXAM: CHEST-PORTABLE - 07/26/2018 HISTORY: Dyspnea TECHNIQUE: Portable chest COMPARISON: 07/25/2018 FINDINGS: Heart size appears mildly enlarged. Inspiration is somewhat shallow. The lungs appear essentially clear. There has been decrease in vascular congestion. There is no consolidation, substantial pleural effusion, or pneumothorax identified. IMPRESSION: Mild cardiomegaly. Somewhat shallow inspiration. Decrease in vascular congestion. Electronically signed by Bharathi Remy 07/26/2018 9:05 PM
[2018-07-26 21:08] LABS: BASO# 0.01 X1000 (0.0-0.2); BASO% 0.1 % (0.0-0.8); EOS# 0.02 X1000 (0.0-0.7); EOS% 0.2 % (0.0-10.0); HEMATOCRIT 33.2 % (37.0-47.0); HEMOGLOBIN 10.2 g/dL (12.0-16.0); IMM GRAN# 0.05 X1000 (0.0-0.04); IMM GRAN% 0.6 % (0.0-0.5); LYMPH# 1.78 X1000 (1.2-3.4); LYMPH% 19.7 % (20.5-51.1); MCH 31.6 PG (27-31); MCHC 30.7 g/dL (33-37); MCV 102.8 FL (81-99); MONO% 11.1 % (1.7-9.3); MPV 9.2 FL (7.4-10.4); NEUT# 6.17 X1000 (1.4-6.5); NEUT% 68.3 % (42.2-75.2); PLT 240 X1000 (130-400); RBC 3.23 XMIL (4.2-5.4); RDW 13.1 % (11.5-14.5); WBC 9.03 X1000 (4.8-10.8)
[2018-07-26 21:10] LABS: ALLEN TEST YES; BE 7.7 mmoll (-3.0-3.0); BLOOD TYPE ARTERIAL; METHB 1.2 % (0.0-1.5); O2(CT) 16.3 mL/dL (15.0-23.0); O2HB 97.6 % (95.0-99.0); PO2(98.6) 528 mmHg (60-100); SAMPLE BLOOD; THB 10.8 g/dL (11.5-17.4); pH(98.6) 7.41 (7.35-7.45)
[2018-07-26 21:12] LABS: MODALITY BI PAP; PCO2(98.6) 53 mmHg (35-45)
[2018-07-26 21:33] LABS: CALCIUM 9.6 mg/dL (8.8-10.2); MAGNESIUM 1.7 mg/dL (1.5-2.7); POTASSIUM 3.9 mmol/L (3.5-5.1)
[2018-07-27] MEDS ORDERED: NS 500 ML IV SCH (04:30)
[2018-07-27 04:55] LABS: ALLEN TEST YES; BE 6.8 mmoll (-3.0-3.0); BLOOD TYPE ARTERIAL; HCO3-(ACT) 30.3 mmoll (20.0-26.0); METHB 0.8 % (0.0-1.5); O2(CT) 15.4 mL/dL (15.0-23.0); O2HB 97.7 % (95.0-99.0); PO2(98.6) 218 mmHg (60-100); SAMPLE BLOOD; SAO2 99.6 % (95.0-100.0); THB 10.8 g/dL (11.5-17.4)
[2018-07-27 04:56] LABS: MODALITY BI PAP; PCO2(98.6) 53 mmHg (35-45)
[2018-07-27 05:08] LABS: BASO# 0.03 X1000 (0.0-0.2); BASO% 0.4 % (0.0-0.8); EOS# 0.04 X1000 (0.0-0.7); EOS% 0.5 % (0.0-10.0); HEMATOCRIT 32.4 % (37.0-47.0); LYMPH# 1.71 X1000 (1.2-3.4); MCH 31.8 PG (27-31); MCHC 30.9 g/dL (33-37); MCV 103.2 FL (81-99); MONO# 1.08 X1000 (0.11-0.59); MONO% 12.7 % (1.7-9.3); MPV 9.2 FL (7.4-10.4); NEUT# 5.67 X1000 (1.4-6.5); NEUT% 66.4 % (42.2-75.2); PLT 231 X1000 (130-400); RBC 3.14 XMIL (4.2-5.4); WBC 8.53 X1000 (4.8-10.8)
[2018-07-27 05:38] LABS: CALCIUM 9.7 mg/dL (8.8-10.2); CREATININE 0.9 mg/dL (0.5-0.9); POTASSIUM 3.7 mmol/L (3.5-5.1)
--- NOTE | 2018-07-27 06:40 | Diag Imaging Result Doc PS360 ---
CHEST-PORTABLE - 07/27/2018 INDICATION: Resp Distress COMPARISON: 07/26/2018 FINDINGS: There is significant new platelike atelectasis in the upper lobes bilaterally. Stable significant cardiomegaly. Stable severely low lung volumes. IMPRESSION: Nonspecific findings. Electronically signed by Julio Brown 07/27/2018 6:38 AM
[2018-07-27] MEDS ORDERED: APRESOLINE PO ONE (09:25)
--- NOTE | 2018-07-27 09:40 | PROGRESS NOTE ---
DATE: 07/27/2018 SUBJECTIVE: Briefly, Ms. Su was brought in from [place] since yesterday. I understand since Even, she has been acting differently. She has been wetting herself, and she acting very differently. Does not know where she puts things, very confused, which got worse over the course of the . So they brought her to the emergency department yesterday, and there was a concern for acute stroke, so she was admitted. During the course of the hospital stay, her initial ABG on the at 2210 showed that she had a pCO2 of 112, and she was severely respiratory acidotic. This morning, she refers to be doing a whole lot better. She is more alert. She is more conversational. I do not find any focal deficits. OBJECTIVE: Vital: Blood pressure is 206/80, pulse is 75, respirations is 21, temperature is 97.6 degrees. Ms. Su is a 78-year-old female. She is in bed. She is not in any cardiopulmonary distress. Mucosa is pink and slightly dry, anicteric, acyanotic. Neck: Supple. No JVD. Chest: Good air entry bilateral. I did not hear any crepitations or rhonchi, and no accessory muscle use. Cardiovascular: Irregularly, irregular but rate controlled. No murmurs, no rubs, no gallops. Abdomen: Soft, nontender. Bowel sounds present. Extremities: No pedal edema. Right lower extremity has a transmetatarsal amputation. Stump is well healed and no acute problems. ERP PM: Patient is still relatively drowsy, but she is very easily arousable. She was able to recognize the daughter. She was able to tell me that she is doing fine. She was able to tell me that she is in the hospital and in [facility]. LABORATORY DATA: WBC is 8.53, hemoglobin is 10.0, platelet count of 231,000. Chemistry is also reviewed unremarkable. The patient's pH is now 7.40, pCO2 is 53. ASSESSMENT: 1. Altered mental status on presentation with no focalizing sign. I think this is due to global encephalopathy. Etiology is currently not well known. However, patient's pCO2 was ridiculously high. So, I presume this was all related to CO2 narcosis. However, I think she has a lot of risk factors for possible transient ischemic attacks, strokes, so a CT scan was unremarkable. We will do an MRI to rule out any other possible etiologies. Of note, patient's mentation, however, is getting better, so I think this was all metabolic related. 2. Acute on chronic hypercarbic respiratory failure. The patient is currently on the BiPAP. PCO2 is getting down and with that, her mentation is also improving. 3. Suspected cerebrovascular accident, questionable transient ischemic attack. The patient is pending the stroke workup. 4. History of osteoarthritis with chronic back pain on chronic opioid use. I think this is probably the reason why the patient came in acute hypercarbic failure. She might probably have taken a little a little bit more of her pain medication, and this could have depressed her respiratory drive and made her altered. I have discussed the findings and my concerns with the daughter and for now, she said the daughter is the one monitoring the patient's medications. 5. Severe uncontrolled hypertension. We are going to restart the patient back on her medications. 6. Mild clinical volume depletion. Patient is on gentle intravenous hydration, and diuretic has been withheld. 7. History of atrial fibrillation, currently rate controlled. Patient is on Xarelto for stroke prophylaxis. I do not see any rate control agent among her medications. So in general, Ms. Su got admitted because of acute onset of lingering altered mental status that got progressively worse and got admitted. On admission, pCO2 was found to be over 100, however, with BiPAP. This has been getting better and with that, her mentation is also improving. She is still on the BiPAP. We are pending an MRI. She is also getting the entire stroke workup done. We will re-evaluate her later on today. If she continues to be improving, we will transition her to just nasal cannula and hopefully get her to the floor soon. cc: Richi Hernandez MD
[2018-07-27] MEDS: NORCO-5 PO PRN (09:53)
--- NOTE | 2018-07-27 11:35 | PULMONOLOGY CONSULTATION ---
DATE: 07/27/2018 REQUESTING PHYSICIAN: Dr. Hernandez REASON FOR CONSULTATION: Respiratory failure. HISTORY OF PRESENT ILLNESS: Ms. Lopez is a 78-year-old white female with a 20-pack year history for tobacco, history of prior strokes, who presented to the emergency room on 07/25/2018 with stroke-like symptoms. The patient had a left gaze and would not follow commands. The patient underwent a CT scan of the brain which did not reveal acute changes. She did undergo an arterial blood gas which revealed a pH of 7.08, pCO2 of 112 and a pO2 of 114. This has improved with BiPAP, and her arterial blood gas this morning revealed a pH of 7.40, pCO2 of 53, pO2 of 218. The patient is arousable to alert. She is cursing her family. She appears to be oriented but confused. PAST MEDICAL HISTORY: 1. Severe kyphosis with multiple thoracic compression fractures and multiple vertebroplasties. 2. Cardiomegaly. 3. History of strokes x2. 4. Hypertension. 5. Chronic back pain. 6. Osteoarthritis and severe osteoporosis. 7. Congestive heart failure with preserved left ventricular ejection fraction. 8. Status post hysterectomy. 9. Status post breast reduction surgery. 10.Status post cataract surgery. SOCIAL HISTORY: The patient has a 20-pack year history for tobacco but has not smoked for the last 5 to 6 years. No alcohol use. FAMILY HISTORY: Noncontributory to current presentation. REVIEW OF SYSTEMS: Limited. The patient does repeatedly indicate she is having back pain. PHYSICAL EXAMINATION: An awake and alert white female in no distress. Blood pressure is 103/108, heart rate 70, respiratory rate 14, oxygen saturation 97% on nasal cannula. HEENT: Pupils are equal and reactive. Oropharynx is clear. Neck is supple. Chest reveals shallow breath sounds bilaterally with significant kyphosis. Cardiac: S1, S2. Abdomen is soft. Extremities reveal previous digital amputation on the right foot. DIAGNOSTIC DATA: Chest x-ray reveals shallow lung church on a portable AP film with cardiomegaly. IMPRESSION: A 78 year old with evidence of chronic ventilatory failure by chronic pCO2 elevation noted on prior arterial blood gasses, who presented with stroke-like features. The patient developed acute on chronic hypercapnic respiratory failure and acute hypoxemic respiratory failure. The patient is at risk for nocturnal hypoxemia given her history. The patient's ventilatory failure is likely related to her severe kyphosis along with cardiomegaly affecting lung volumes. She would likely benefit from an outpatient sleep study after she recovers from this acute event. RECOMMENDATIONS: 1. Cycle BiPAP nightly at bedtime and p.r.n. 2. Continue oxygen for acute hypoxemic respiratory failure. 3. Blood pressure control as dictated by stroke management and neurology team. 4. Overall prognosis is guarded. cc: Aravind Marie MD
--- NOTE | 2018-07-27 12:20 | Diag Imaging Result Doc PS360 ---
EXAM: MRI BRAIN W/O CONTRAST 07/27/2018 HISTORY: ? TIA TECHNIQUE: T1 sagittal, axial DWI, T1, flair, T2, and gradient echo coronal. COMMENT: There is considerable motion artifact. There is no evidence of restricted diffusion. There is no evidence of bleed, mass effect, or abnormal extra-axial fluid collection. There is considerable periventricular white matter hyperintensity on the T2 and FLAIR images particularly adjacent to the atria and parietal convexity regions of the lateral ventricles. There are no previous MRI studies available for comparison. There are similar changes present on the CT examination of 07/25/2018. IMPRESSION: No evidence of acute infarct. Chronic ischemic microvascular white matter changes. Electronically signed by Isael Jade 07/27/2018 12:17 PM
[2018-07-27] MEDS: APRESOLINE PO SCH ×2 (15:21→20:37)
--- NOTE | 2018-07-27 15:21 | ECHO REPORT ---
ORDER DATE: 07/26/2018 INDICATION FOR THE STUDY: CVA, chronic atrial fibrillation, CHF, hypertension. FINDINGS: 1. Right atrium is moderately enlarged at 5 cm. 2. Mild tricuspid regurgitation. RV systolic pressure of 78 suggesting pulmonary hypertension. 3. Normal RV size and systolic function. 4. Moderate pulmonic insufficiency. 5. Severe left atrial enlargement with a volume index of 66. 6. No mitral valve prolapse. Mild mitral regurgitation. 7. Normal LV size with an end-diastolic dimension of 4.4. Normal wall thicknesses with a posterior and interventricular septal wall thickness 1.1 cm each. Normal LV systolic function. Estimated EF of 70% with normal wall motion. 8. Aortic valve opens well. It is trileaflet. There is trace insufficiency with no stenosis. 9. Aorta appears normal in visualized segments. 10. No pericardial effusion seen. cc: MD Elizabeth Modi CRNP
--- NOTE | 2018-07-27 20:07 | Carotid Study ---
DATE: 07/26/2018 PROCEDURE: Carotid duplex imaging. REFERRING PHYSICIAN: Richi Hernandez MD. INTERPRETING PHYSICIAN: Marycruz Monsalve MD. TECH: Jesse. INDICATIONS: Altered mental status with CVA. NOTE: Technically limited study due to patient altered mental status and left jugular catheter. OBSERVED DATA RIGHT LEFT Brachial Blood Pressure Carotid Pulse Bruits: Carotid/Sub DIAGRAM OF ULTRASOUND IMAGING R L RIGHT INT EXT INT EXT LEFT Wilmer (cm/s) Wilmer (cm/s) Subclavian 110/14 Subclavian 91/9 CCA Proximal 65/15 CCA Proximal Not Visualized CCA Distal 76/15 CCA Distal 91/18 Bulb 126/18 Bulb 140/16 ICA Proximal 83/24 ICA Proximal 103/13 ICA Mid 100/25 ICA Mid 122/18 ICA Distal 102/25 ICA Distal 87/15 ECA 152/2 ECA 172/16 Vertebral 72/31, antegrade Vertebral 62/9, antegrade ICA/CCA Ratio 1.34 ICA/CCA Ratio 1.34 % Stenosis 0-39 % Stenosis 40-59 PHYSICIAN INTERPRETATION: This is a limited study. However, there does appear to be elevation of velocities on the left side that would correlate to the 40-59% although I do not see a focal plaque. There are some atherosclerotic changes scattered throughout the bilateral carotid artery system. SUMMARY: Mild to moderate changes with higher velocities on the left. Would consider repeating this study when the patient is more compliant with the exam. cc: MD Elizabeth River CRNP
[2018-07-27] MEDS: ELIQUIS PO SCH (20:37)
[2018-07-28] MEDS: NORCO-5 PO PRN (01:29)
[2018-07-28] MEDS ORDERED: APRESOLINE IV ONE (02:38)
[2018-07-28 04:49] LABS: ALLEN TEST YES; BE 6.9 mmoll (-3.0-3.0); BLOOD TYPE ARTERIAL; HCO3-(ACT) 30.3 mmoll (20.0-26.0); METHB 0.7 % (0.0-1.5); O2(CT) 13.8 mL/dL (15.0-23.0); O2HB 97.1 % (95.0-99.0); PO2(98.6) 134 mmHg (60-100); SAMPLE BLOOD; SAO2 99.5 % (95.0-100.0); THB 9.9 g/dL (11.5-17.4)
[2018-07-28 04:51] LABS: MODALITY BI PAP; PCO2(98.6) 53 mmHg (35-45)
[2018-07-28] MEDS: PRILOSEC PO SCH (06:32)
[2018-07-28 06:34] LABS: BASO# 0.04 X1000 (0.0-0.2); BASO% 0.5 % (0.0-0.8); EOS# 0.14 X1000 (0.0-0.7); EOS% 1.8 % (0.0-10.0); HEMATOCRIT 32.3 % (37.0-47.0); HEMOGLOBIN 9.8 g/dL (12.0-16.0); IMM GRAN# 0.03 X1000 (0.0-0.04); IMM GRAN% 0.4 % (0.0-0.5); LYMPH% 16.7 % (20.5-51.1); MCH 31.2 PG (27-31); MCHC 30.3 g/dL (33-37); MCV 102.9 FL (81-99); MONO# 0.98 X1000 (0.11-0.59); MONO% 12.6 % (1.7-9.3); MPV 9.7 FL (7.4-10.4); NEUT# 5.31 X1000 (1.4-6.5); PLT 262 X1000 (130-400); RBC 3.14 XMIL (4.2-5.4); RDW 12.7 % (11.5-14.5)
[2018-07-28 07:13] LABS: AGAP 12; ALBUMIN 3.2 g/dL (3.5-5.0); BUN 17 mg/dL (8-22); CALCIUM 9.1 mg/dL (8.8-10.2); CHLORIDE 100 mmol/L (98-107); COSMO 282; CREATININE 0.7 mg/dL (0.5-0.9); ESTIMATED GFR > 60; GLUCOSE 79 mg/dL (70-104); PHOSPHORUS 1.8 mg/dL (2.7-4.5); POTASSIUM 3.1 mmol/L (3.5-5.1); SODIUM 141 mmol/L (136-145); TCO2 29 mmol/L (25-35)
--- NOTE | 2018-07-28 08:13 | Diag Imaging Result Doc PS360 ---
EXAM: CHEST-PORTABLE INDICATION: dyspnea TECHNIQUE: One view COMPARISON: 07/27/2018 FINDINGS: Lung volumes remain low. There is suggestion of pulmonary venous congestion that is similar to the previous study. There is probably a small left effusion with adjacent atelectasis and/or infiltrate that is similar to the previous study. No new consolidation is identified. Cardiac silhouette is stable. IMPRESSION: Essentially stable chest. Electronically signed by Isak Vazquez 07/28/2018 8:11 AM
[2018-07-28] MEDS: MAG-OX PO SCH (08:39)
[2018-07-28] MEDS: COZAAR PO SCH (08:39)
[2018-07-28] MEDS: CITRACAL + D PO SCH (08:39)
[2018-07-28] MEDS: ELIQUIS PO SCH ×2 (08:40→20:26)
[2018-07-28] MEDS: APRESOLINE PO SCH ×3 (08:40→20:26)
--- NOTE | 2018-07-28 09:49 | PROGRESS NOTE ---
DATE: 07/28/2018 SUBJECTIVE: This morning Ms. Su refers to be doing a whole lot better. She is more alert. She is conversational. According to the daughter who was at the bedside, the patient was not able to recognize her about 10 minutes ago. However, when I went the patient was able to recognize the daughter, was able to mention her name, and referred to her as her daughter. OBJECTIVE: Vital signs: Blood pressure is 199/90, pulse 64, respiration is 18 , temperature 98.3 degrees. General exam: Ms. Su is a 78-year-old female. She was in bed in no distress. HEENT: Mucosa is pink and moist. Anicteric. Acyanotic. Neck: Supple. No JVD. Chest: Good air entry bilateral. There are still a few crackles in the posterior lung church. Cardiovascular: Irregularly irregular, but rate controlled. No murmurs, no rubs, no gallops. 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 She was able to tell me the year, but not able to tell me the month. The patient will move all extremities upon command. Musculoskeletal: The patient also had scoliosis. LABORATORY DATA: WBC is 7.80, hemoglobin is 9.8, platelet count of 262. Chemistry is also reviewed: Potassium is 3.1, and the rest of chemistry is completely normal. Phosphorus is 1.8. ABG this morning continues to show pCO2 of 53, which seems to be patient's baseline. IMAGING STUDIES: A chest x-ray shows essentially stable, no changes. ASSESSMENT: 1. Altered mental status on presentation with no focalizing signs, presumably due to CO2 narcosis. The patient's sensorium has significantly improved, and CO2 is back to her baseline. 2. Acute on chronic hypercarbic respiratory failure. This has improved. The patient's pCO2 is back to 53, which I think is her baseline. In terms of her chronic hypercarbic failure, there was a thought process that this could be related to her severe kyphoscoliosis , as well as possible obstructive sleep apnea, which she has been advised to follow up with sleep team. 3. History of osteoarthritis with chronic back pain on chronic opioid use. Opioid use and abuse has been discussed. 4. Severe uncontrolled hypertension. We will continue to titrate her medications. 5. History of atrial fibrillation, currently rate controlled. The patient is also on Xarelto for stroke prophylaxis. 6. Hypokalemia with hypophosphatemia. We will replace this. We will also check the patient's vitamin D level. PLAN: So, in general, Ms. Su is fairly stable. She is now a whole lot more alert, oriented. I think she does have an underlying cognitive decline (mild dementia), which could be why she gets confused every now and then as per the daughter. However, her sensorium is significantly improved, and I think she will be fine being transferred from the ICU to regular floor. We will discontinue the Gutierrez catheter. We will replace the electrolyte abnormality and get therapy to work with her today. Hopefully, Ms. Su can be discharged tomorrow. cc: Richi Hernandez MD MTDD
[2018-07-28] MEDS ORDERED: LASIX IV ONE (11:06)
[2018-07-28] MEDS: ALDACTONE PO SCH (11:07)
[2018-07-28] MEDS: NEUTRA-PHOS PO SCH ×4 (11:07→20:27)
--- NOTE | 2018-07-28 14:12 | PULMONOLOGY PROGRESS NOTE ---
DATE: 07/28/2018 SUBJECTIVE: The patient is awake, alert, and conversant. She appears less confused than yesterday. Her daughter reports that she still has some confusion and believes that she is going to return back her previous apartment which she left in December. She is without specific complaints today. OBJECTIVE: Vital Signs: Maximum temperature in the last 24 hours was 99.8 degrees. BP is 161/89, heart rate 75, respiratory rate 22, and oxygen saturation 95% on room air. HEENT: Pupils are equal and reactive. Oropharynx is clear. Neck: Supple. Respiratory: Chest reveals shallow breath sounds bilaterally. Cardiac: S1, S2. Abdomen: The abdomen is soft. Extremities: The extremities are without edema. LABORATORIES: White blood count is 7.8, hemoglobin 9.8, and platelet count 262,000. Arterial blood gas reveals a pH of 7.40, pCO2 of 53, and pO2 of 134. Chest x-ray is unchanged. IMPRESSION: A 78-year-old with severe kyphosis with multiple vertebral compression fractures and chronic hypercapnic respiratory failure who presents with acute hypoxemic respiratory failure and acute on chronic hypercapnic respiratory failure with a component of altered sensorium. The patient has had some clinical improvement. RECOMMENDATIONS: 1. Continue oxygen for hypoxemic respiratory failure and evaluate patient for oxygen at the time of discharge. 2. Attempt to go through the evening tonight without BiPAP prior to anticipated discharge tomorrow. 3. Recommend outpatient sleep evaluation. cc: Aravind Marie MD
[2018-07-28] MEDS: VITAMIN D PO SCH (16:34)
[2018-07-28] MEDS: NORVASC PO SCH (20:27)
[2018-07-29] MEDS: NORCO-5 PO PRN (01:03)
[2018-07-29 04:47] LABS: ALLEN TEST YES; BE 10.5 mmoll (-3.0-3.0); BLOOD TYPE ARTERIAL; METHB 0.9 % (0.0-1.5); O2(CT) 18.4 mL/dL (15.0-23.0); O2HB 93.3 % (95.0-99.0); PCO2(98.6) 48 mmHg (35-45); PO2(98.6) 68 mmHg (60-100); SAMPLE BLOOD; SAO2 96.3 % (95.0-100.0); pH(98.6) 7.48 (7.35-7.45)
[2018-07-29 04:48] LABS: MODALITY ROOM AIR
[2018-07-29] MEDS: PRILOSEC PO SCH (06:15)
[2018-07-29] MEDS: MAG-OX PO SCH (08:05)
[2018-07-29] MEDS: CITRACAL + D PO SCH (08:05)
[2018-07-29] MEDS: APRESOLINE PO SCH ×3 (08:05→21:52)
[2018-07-29] MEDS: NEUTRA-PHOS PO SCH ×4 (08:05→21:53)
[2018-07-29] MEDS: COZAAR PO SCH (08:06)
[2018-07-29] MEDS: NORVASC PO SCH ×2 (08:06→21:52)
[2018-07-29] MEDS: ALDACTONE PO SCH (08:06)
[2018-07-29] MEDS: VITAMIN D PO SCH (08:06)
[2018-07-29] MEDS: ELIQUIS PO SCH ×2 (08:07→21:52)
[2018-07-29 09:34] LABS: BASO# 0.04 X1000 (0.0-0.2); BASO% 0.4 % (0.0-0.8); EOS# 0.16 X1000 (0.0-0.7); EOS% 1.6 % (0.0-10.0); HEMATOCRIT 36.6 % (37.0-47.0); HEMOGLOBIN 11.6 g/dL (12.0-16.0); IMM GRAN# 0.05 X1000 (0.0-0.04); IMM GRAN% 0.5 % (0.0-0.5); LYMPH# 1.67 X1000 (1.2-3.4); MCH 31.1 PG (27-31); MCHC 31.7 g/dL (33-37); MCV 98.1 FL (81-99); MONO# 1.15 X1000 (0.11-0.59); MONO% 11.7 % (1.7-9.3); MPV 9.2 FL (7.4-10.4); NEUT# 6.74 X1000 (1.4-6.5); NEUT% 68.8 % (42.2-75.2); PLT 287 X1000 (130-400); RBC 3.73 XMIL (4.2-5.4); RDW 12.8 % (11.5-14.5); WBC 9.81 X1000 (4.8-10.8)
[2018-07-29 10:02] LABS: AGAP 18; ALB/GLOB RATIO 1.2; ALBUMIN 3.7 g/dL (3.5-5.0); ALKALINE PHOSPHATASE 70 U/L (32-104); BUN 13 mg/dL (8-22); CHLORIDE 90 mmol/L (98-107); COSMO 276; CREATININE 0.8 mg/dL (0.5-0.9); ESTIMATED GFR > 60; GLUCOSE 110 mg/dL (70-104); GOT 20 U/L (10-30); GPT 9 U/L (10-36); MAGNESIUM 1.4 mg/dL (1.5-2.7); PHOSPHORUS 2.7 mg/dL (2.7-4.5); POTASSIUM 3.1 mmol/L (3.5-5.1); SODIUM 138 mmol/L (136-145); TCO2 30 mmol/L (25-35); TOTAL BILIRUBIN 0.69 mg/dL (0.20-1.00); TOTAL PROTEIN 6.9 g/dL (6.3-8.3)
[2018-07-29] MEDS: CATAPRES PO SCH ×2 (11:46→21:53)
[2018-07-29] MEDS: LOPRESSOR PO SCH ×2 (11:47→21:52)
--- NOTE | 2018-07-29 11:58 | PROGRESS NOTE ---
DATE: 07/29/2018 SUBJECTIVE: This morning Ms. Su refers to be doing a lot better. Mentation is completely clear. However, the son-in-law (Escobar) who was at the bedside thinks that Ms. Su has been extremely confused. OBJECTIVE: Vital Signs: Blood pressure is 182/97, pulse is 102, respirations 22, temperature is 100.1, patient was saturating about 93% on room air. General: Ms. Su is a 78-year-old female. She was in bed, no distress. HEENT: Mucosa is pink and slightly dry. Anicteric. Acyanotic. Neck: Supple. Chest: Good air entry bilateral. No crepitations. No rhonchi. Cardiovascular: Irregularly irregular, but rate controlled. No murmurs, no rubs, no gallops. Central Nervous System: Patient is awake, alert, oriented to person, place and time. Was very conversational and will move all extremities upon command. Musculoskeletal: The patient has kyphosis. LABORATORY DATA: WBC is 9.81, hemoglobin is 11.6, platelet count of 287,000. Chemistry is also reviewed. Potassium is 3.1, rest of chemistry is unremarkable. ASSESSMENT: 1. Altered mental status on presentation with no focalizing signs secondary to CO2 narcosis, improved. 2. Acute on chronic hypercarbic respiratory failure, resolved. 3. Severe kyphoscoliosis noted. 4. Severe uncontrolled hypertension. We will continue to titrate. We have added clonidine to her medications. 5. History of atrial fibrillation, currently rate controlled. Patient is on Xarelto for stroke prophylaxis. She is not on any rate control medication because of episodes of bradycardia on arrival. However, I think the pulse is now well stabilized. We can introduce very low-dose metoprolol. 6. History of osteoarthritis. The patient is on chronic opioid use. 7. Hypokalemia. Will continue to replace this. 8. SIRS. This morning patient's temperature is a little bit elevated 100.1. She is slightly tachycardic and according to the family member she is more confused than days before. She is also having O2 sats in the low 90s. We are going to do a chest x-ray and do a urinalysis to rule out any possible infection and re-evaluate her later. In general, I think Ms. Su is clinically stable. We are going to move her from the ICU to regular medical floor under telemonitoring. We will be doing a chest x-ray, we will sample the urine to rule out any possible ongoing infection. We started her on a very low dose metoprolol and clonidine for blood pressure, adequate blood pressure control. We also consulted PT and Social Work for rehab placement. cc: Richi Hernandez MD MTDD
--- NOTE | 2018-07-29 12:28 | PULMONOLOGY PROGRESS NOTE ---
DATE: 07/29/2018 SUBJECTIVE: The patient is awake, alert, and conversant. She does not appear to be disoriented today. OBJECTIVE: Blood pressure is 164/74, heart rate 88, respiratory rate 22, oxygen saturation is 94% on room air. Current temperature of 100.1 degrees but otherwise afebrile. HEENT: Pupils are equal and reactive. Oropharynx appears clear. Neck is supple. Chest reveals shallow breath sounds bilaterally without wheezing or rhonchi. Cardiac: S1, S2. Abdomen is soft and without hepatosplenomegaly. Extremities are without edema. DIAGNOSTIC DATA: White blood count is 9.8, hemoglobin 11.6, platelet count 287,000. Chemistries show sodium 138, potassium 3.1, chloride 90, bicarbonate 30, BUN is 13, creatinine 0.8. Arterial blood gas on room air shows pH of 7.48, pCO2 of 48, pO2 of 68. IMPRESSION: A 78 year old with severe kyphosis, multiple compression fractures, with chronic hypercapnic respiratory failure, who presented with acute hypoxemic respiratory failure and acute on chronic hypercapnic respiratory failure. Mental status continues to improve. She tolerated remaining off the BiPAP through the evening without evidence of decompensation. RECOMMENDATIONS: 1. Agree with transfer to the floor. 2. Recommend balancing intake and output. She will be prone to fluid retention. 3. Recommend outpatient sleep study. cc: Aravind Marie MD
[2018-07-29 12:30] LABS: URINE SOURCE VOIDED
[2018-07-29 12:39] LABS: BILIRUBIN URINE NEGATIVE (NEGATIVE); BLOOD URINE NEGATIVE (NEGATIVE); COLOR YELLOW; GLUCOSE URINE NEGATIVE (NEGATIVE); KETONE URINE 10 mg/dL (NEGATIVE); LEUKOCYTES URINE SMALL (NEGATIVE); NITRITE URINE NEGATIVE (NEGATIVE); PH URINE 7.5; PROTEIN URINE 100 mg/dL (NEGATIVE); TURBIDITY URINE CLEAR (CLEAR); UR EPITHELIAL CELLS <10 /HPF (<10); URINE BACTERIA 1+ /HPF; URINE RBC <10 /HPF (<10); URINE WBC <10 /HPF (<10); UROBILINOGEN URINE NORMAL (NORMAL)
[2018-07-29] MEDS: NS IV SCH (15:07)
[2018-07-29] MEDS: MERREM IV SCH (15:07)
--- NOTE | 2018-07-29 21:07 | Diag Imaging Result Doc PS360 ---
EXAM: CHEST-2 VIEWS INDICATION: hypoxia TECHNIQUE: 2 views COMPARISON: 07/28/2018 FINDINGS: Pulmonary venous congestion appears to have improved somewhat. There is suggestion of a left pleural fluid collection that is approximately stable. No new consolidation is identified. Cardiac silhouette is stable. IMPRESSION: Some improvement of pulmonary venous congestion. Essentially stable chest, otherwise. Electronically signed by Isak Vazquez 07/29/2018 9:05 PM
[2018-07-30] MEDS: MERREM IV SCH (05:05)
[2018-07-30] MEDS: NS IV SCH (05:05)
[2018-07-30] MEDS: NS 50 ML ONE (05:35)
[2018-07-30] MEDS: PRILOSEC PO SCH (06:10)
[2018-07-30 07:26] LABS: BASO# 0.02 X1000 (0.0-0.2); BASO% 0.3 % (0.0-0.8); EOS% 1.5 % (0.0-10.0); HEMATOCRIT 35.8 % (37.0-47.0); HEMOGLOBIN 11.5 g/dL (12.0-16.0); IMM GRAN# 0.03 X1000 (0.0-0.04); IMM GRAN% 0.4 % (0.0-0.5); LYMPH# 0.66 X1000 (1.2-3.4); LYMPH% 9.9 % (20.5-51.1); MCH 31.3 PG (27-31); MCHC 32.1 g/dL (33-37); MCV 97.5 FL (81-99); NEUT# 5.07 X1000 (1.4-6.5); NEUT% 75.9 % (42.2-75.2); PLT 235 X1000 (130-400); RBC 3.67 XMIL (4.2-5.4); RDW 13.1 % (11.5-14.5); WBC 6.68 X1000 (4.8-10.8)
[2018-07-30 07:42] LABS: ALBUMIN 3.2 g/dL (3.5-5.0); PHOSPHORUS 3.4 mg/dL (2.7-4.5)
[2018-07-30] MEDS: APRESOLINE PO SCH ×3 (09:04→20:57)
[2018-07-30] MEDS: LOPRESSOR PO SCH ×2 (09:04→20:57)
[2018-07-30] MEDS: COZAAR PO SCH (09:04)
[2018-07-30] MEDS: CITRACAL + D PO SCH (09:04)
[2018-07-30] MEDS: ALDACTONE PO SCH (09:04)
[2018-07-30] MEDS: NEUTRA-PHOS PO SCH ×4 (09:04→20:55)
[2018-07-30] MEDS: VITAMIN D PO SCH (09:04)
[2018-07-30] MEDS: NORVASC PO SCH ×2 (09:04→20:57)
[2018-07-30] MEDS: ELIQUIS PO SCH ×2 (09:04→20:57)
[2018-07-30] MEDS: MAG-OX PO SCH (09:05)
[2018-07-30] MEDS: CATAPRES PO SCH ×2 (09:05→20:57)
[2018-07-30] MEDS ORDERED: KLOR-CON PO ONE (09:50)
--- NOTE | 2018-07-30 11:03 | PROGRESS NOTE ---
DATE: 07/30/2018 SUBJECTIVE: This morning, Ms. Su refers to be doing fairly okay. Was able to tell me where she was, her name, and the date. OBJECTIVE: Vital Signs: Blood pressure is 158/84, pulse is 72, respirations are 20, temperature is 98.3 degrees. General Examination: Ms. Su is a 78-year-old, female. She was in bed. She was not in any distress. HEENT: Mucosa was pink and minimally dry. Anicteric. Acyanotic. Neck: Supple. Chest: Good air entry bilaterally. I did not hear any crepitations or rhonchi. Cardiovascular: Irregularly irregular but rate controlled. No murmurs, no rubs, no gallops. Abdomen: Soft, nontender. Bowel sounds present. COMPRESSOR SERVICE TECHNICIAN: The patient was awake, alert, oriented to person, place, and time. Was sustaining conversation very rationally and will move extremities upon command. Musculoskeletal: Positive for kyphoscoliosis. Laboratory Data: WBC is 6.68, hemoglobin is 11.5, platelet count of 235,000. Chemistry is also reviewed. Sodium is 138, potassium is 3.0, chloride is 94, bicarb is 33, creatinine is 1.0. Rest of chemistry is unremarkable. So far, urine culture just showed mixed florae. A chest x-ray yesterday did show improvement in the pulmonary venous congestion. CURRENT MEDICATIONS: 1. [place] p.r.n. 2. Amlodipine 5 mg b.i.d. 3. Eliquis 5 mg b.i.d. 4. Cholecalciferol 2000 daily. 5. Clonidine 0.1 b.i.d. 6. Hydralazine 50 mg 3 times per day. 7. Cozaar 100 mg daily. 8. Metoprolol 12.5 b.i.d. 9. Prilosec 40 mg daily. 10. Potassium phosphate. 11. Aldactone 12.5 daily. 12. Meropenem has been discontinued. ASSESSMENT: 1. Altered mental status on presentation with no focalization sign. Imaging studies have been completely unremarkable. We think this was secondary to CO2 narcosis. Patient was initially placed on BiPAP. CO2 was 112 on presentation. Last time checked through yesterday was 48. The patient's mentation has also significantly improved with improvement of the CO2. 2. Acute on chronic hypercarbic respiratory failure, resolved. 3. Severe kyphoscoliosis, noted. 4. Severe uncontrolled hypertension on presentation, improved. The patient is currently on multiple medications which seem to have been controlling the blood pressure well. 5. History of atrial fibrillation, currently rate controlled. We will continue with low-dose metoprolol and Xarelto for stroke prophylaxis. 6. The patient had a slight temperature three days ago and was slightly tachycardic at one point. We thought she could have been coming down with an infection. Was started on meropenem. However, chest x-ray has been negative. White cell count is normal. The patient has been afebrile since. Urine culture is unremarkable so I have discontinue the antibiotics. PLAN: In general, I think Ms. Su is a whole lot better. I think she is back to her baseline. She probably has an underlying Alzheimer's disease which has gotten worse with the onset of the acute medical problem. She would eventually need to follow up with the neurologist. She has also been advised to follow up with pulmonology for outpatient sleep studies. Ms. Su is pending rehab placement. cc: Richi Hernandez MD
[2018-07-30] MEDS ORDERED: LASIX IV ONE (17:20)
--- NOTE | 2018-07-30 17:51 | PULMONOLOGY PROGRESS NOTE ---
DATE: 07/30/2018 SUBJECTIVE: The patient is awake, alert, and conversant. She may be having some visual hallucinations. She has no increased work of breathing. OBJECTIVE: Blood pressure is 151/65, heart rate 66, respiratory rate 20, oxygen saturation is 94% on 1 L per nasal cannula. HEENT: Pupils are equal and reactive. Oropharynx is clear. Neck is supple. Chest reveals significant kyphosis with shallow breath sounds. Cardiac: S1, S2. Abdomen is soft and without hepatosplenomegaly. Extremities are without edema. IMAGING: Chest x-ray yesterday afternoon reveals significant kyphosis, decreased pulmonary venous congestion, small left-sided effusion. IMPRESSION: A 78 year old with severe kyphosis, multiple compression fractures, chronic hypercapnic respiratory failure, with acute hypoxemic respiratory failure and acute on chronic hypercapnic respiratory failure. She is having some visual hallucinations, but otherwise appears to be doing well. She is doing well off BiPAP ventilation. PLAN: 1. Continue to balance intake and output. 2. Recommend outpatient sleep study. 3. Continue low-dose oxygen for hypoxemic respiratory failure. She may require oxygen at discharge. cc: Aravind Marie MD
[2018-07-31 05:53] LABS: ALLEN TEST YES; BE 12.4 mmoll (-3.0-3.0); BLOOD TYPE ARTERIAL; HCO3-(ACT) 34.6 mmoll (20.0-26.0); O2(CT) 15.7 mL/dL (15.0-23.0); O2HB 95.7 % (95.0-99.0); PCO2(98.6) 45 mmHg (35-45); PO2(98.6) 84 mmHg (60-100); SAMPLE BLOOD; SAO2 98.3 % (95.0-100.0); THB 11.6 g/dL (11.5-17.4); pH(98.6) 7.52 (7.35-7.45)
[2018-07-31 05:54] LABS: MODALITY CANNULA
[2018-07-31] MEDS: PRILOSEC PO SCH (06:09)
[2018-07-31 07:35] LABS: ALB/GLOB RATIO 1.1; ALBUMIN 3.4 g/dL (3.5-5.0); CREATININE 0.9 mg/dL (0.5-0.9); MAGNESIUM 1.5 mg/dL (1.5-2.7); POTASSIUM 3.5 mmol/L (3.5-5.1); TOTAL BILIRUBIN 0.48 mg/dL (0.20-1.00); TOTAL PROTEIN 6.5 g/dL (6.3-8.3)
--- NOTE | 2018-07-31 08:20 | Diag Imaging Result Doc PS360 ---
EXAM: CHEST-2 VIEWS INDICATION: abnormal exam TECHNIQUE: 2 views COMPARISON: 07/29/2018 FINDINGS: The already mild pulmonary venous congestion is stable to marginally improved. The small left pleural fluid collection has grossly decreased in size. No new consolidation is identified. Cardiac silhouette is stable. IMPRESSION: Interval slight improvement as described. Electronically signed by Isak Vazquez 07/31/2018 8:18 AM
[2018-07-31] MEDS: NORCO-5 PO PRN ×2 (10:36→23:37)
[2018-07-31] MEDS: CATAPRES PO SCH ×2 (10:36→20:18)
[2018-07-31] MEDS: CITRACAL + D PO SCH (10:37)
[2018-07-31] MEDS: MAG-OX PO SCH (10:37)
[2018-07-31] MEDS: NORVASC PO SCH ×2 (10:37→20:18)
[2018-07-31] MEDS: ELIQUIS PO SCH ×2 (10:37→20:18)
[2018-07-31] MEDS: ALDACTONE PO SCH (10:37)
[2018-07-31] MEDS: APRESOLINE PO SCH ×3 (10:37→20:18)
[2018-07-31] MEDS: NEUTRA-PHOS PO SCH ×5 (10:37→20:19)
[2018-07-31] MEDS: COZAAR PO SCH (10:38)
[2018-07-31] MEDS: LOPRESSOR PO SCH ×2 (10:38→20:18)
[2018-07-31] MEDS: VITAMIN D PO SCH (10:38)
--- NOTE | 2018-07-31 15:16 | PROGRESS NOTE ---
DATE: 07/31/2018 SUBJECTIVE: Patient resting comfortable in bed. Not in any obvious distress. OBJECTIVE: Vital signs: Temperature 98.5 degrees, pulse 55, respirations 18, blood pressure 134/55, oxygen saturation 100%. HEENT: Atraumatic, normocephalic. Cardiovascular: S1, S2. Respiratory: Has evidence of good entry bilaterally. Abdomen: Soft, nontender. No masses felt. Extremities: No evidence of edema. Central nervous system: No obvious focal deficit noted. LABORATORY DATA: ABG 7.52/45/84/98.3. Sodium is 141, potassium 3.5, chloride 97, bicarb 30, BUN is 14, creatinine 0.9. X-ray of the chest shows mild pulmonary vascular congestion. ASSESSMENT AND PLAN: 1. Acute delirium, resolved. 2. Hdruc-da-xzvesoc hypercapnic respiratory failure. Improved. The patient seems to be doing well off BiPAP. Continue to follow up on patient's oxygenation. 3. Severe kyphoscoliosis. Noted. Use analgesics p.r.n. for pain control. 4. Hypertension. Continue current antihypertensive regimen. 5. Atrial fibrillation. The patient's heart rate is controlled. Continue low- dose beta-jazmyn as well as Eliquis.. 6. Deconditioning. Recommend PT. 7. Deep vein thrombosis prophylaxis. The patient is on Eliquis. 8. Gastrointestinal prophylaxis. The patient is on proton pump inhibitor. 9. Disposition. We are awaiting rehab placement. cc: Fran Kennedy MD MTDD
--- NOTE | 2018-07-31 20:58 | PULMONOLOGY PROGRESS NOTE ---
DATE: 07/31/2018 SUBJECTIVE: The patient is awake, alert and conversant. She is without specific complaints but would like her oxygen checked. OBJECTIVE: Vital Signs: The patient has been afebrile for the last 24 hours. Blood pressure is 102/49, heart rate 51, respiratory rate 18, oxygen saturation 97% on room air. HEENT: Pupils are equal and reactive. Oropharynx is clear. Neck: Supple. Chest: Reveals good air entry bilaterally without wheezing or rhonchi. Cardiac: S1 and S2. Abdomen: Soft without hepatosplenomegaly. Extremities: Without edema. LABORATORIES: Chest x-ray reveals severe kyphosis, multiple compression fractures, increased AP diameter on the lateral film with decreased pulmonary venous congestion and decrease in size of small left effusion. IMPRESSION: A 78-year-old with severe kyphosis, multiple compression fractures, and chronic hypercapnic respiratory failure with acute hypoxemic respiratory failure that has resolved. The patient has a small effusion. She continues to clinically improve. RECOMMENDATIONS: 1. Recommend outpatient sleep study. 2. Balance intake and output. 3. Agree with plans for rehab at the time of discharge. cc: Aravind Marie MD
[2018-08-01] MEDS: PRILOSEC PO SCH (06:05)
[2018-08-01] MEDS: NORCO-5 PO PRN ×2 (08:10→20:09)
[2018-08-01] MEDS: ALDACTONE PO SCH (08:50)
[2018-08-01] MEDS: APRESOLINE PO SCH ×3 (08:50→20:06)
[2018-08-01] MEDS: VITAMIN D PO SCH (08:50)
[2018-08-01] MEDS: LOPRESSOR PO SCH ×2 (08:50→20:06)
[2018-08-01] MEDS: NEUTRA-PHOS PO SCH ×4 (08:51→20:10)
[2018-08-01] MEDS: ELIQUIS PO SCH ×2 (08:51→20:06)
[2018-08-01] MEDS: CITRACAL + D PO SCH (08:51)
[2018-08-01] MEDS: NORVASC PO SCH ×2 (08:51→20:06)
[2018-08-01] MEDS: MAG-OX PO SCH (08:51)
[2018-08-01] MEDS: CATAPRES PO SCH ×2 (08:55→20:09)
[2018-08-01] MEDS: COZAAR PO SCH (08:55)
--- NOTE | 2018-08-01 14:06 | PROGRESS NOTE ---
DATE: 08/01/2018 SUBJECTIVE: Patient resting in bed. Not in any obvious distress. OBJECTIVE: Vital Signs: Temperature 97.9 degrees, pulse 58, respirations 18, blood pressure 115/61, oxygen saturation is 99%. HEENT: Atraumatic, normocephalic. Cardiovascular: S1, S2. Respiratory: Evidence of good air entry bilaterally. Abdomen: Soft, nontender. No masses. Extremities: No evidence of edema. Central Nervous System: No obvious focal deficits noted. LABORATORY DATA: None. ASSESSMENT AND PLAN: 1. Acute delirium, resolved. 2. Acute on chronic hypercapnic respiratory failure, improved. The patient seems to be doing well off bilevel positive airway pressure. Continue oxygen supplementation. 3. Severe kyphoscoliosis. Noted. Use analgesics as needed for pain control. 4. Hypertension. Continue current antihypertensive regimen. 5. Atrial fibrillation. Continue low-dose beta-jazmyn as well as steroids. 6. Deconditioning. Physical therapy recommended. 7. Deep vein thrombosis prophylaxis. The patient is on Eliquis. 8. Gastrointestinal prophylaxis. Proton pump inhibitor. 9. Disposition. Awaiting rehab placement. cc: Fran Kennedy MD
[2018-08-02] MEDS: PRILOSEC PO SCH (06:12)
[2018-08-02] MEDS: NEUTRA-PHOS PO SCH ×2 (09:24→13:25)
[2018-08-02] MEDS: CITRACAL + D PO SCH (09:25)
[2018-08-02] MEDS: NORVASC PO SCH (09:25)
[2018-08-02] MEDS: VITAMIN D PO SCH (09:25)
[2018-08-02] MEDS: LOPRESSOR PO SCH (09:25)
[2018-08-02] MEDS: ALDACTONE PO SCH (09:25)
[2018-08-02] MEDS: COZAAR PO SCH (09:26)
[2018-08-02] MEDS: MAG-OX PO SCH (09:26)
[2018-08-02] MEDS: CATAPRES PO SCH (09:26)
[2018-08-02] MEDS: ELIQUIS PO SCH (09:26)
[2018-08-02] MEDS: APRESOLINE PO SCH ×3 (09:26→14:51)
[2018-08-02] MEDS: NORCO-5 PO PRN (10:41)
[2018-08-02 14:08] VITALS: BP 85/44
--- NOTE | 2018-08-02 14:26 | DISCHARGE SUMMARY ---
ADMISSION DATE: 07/26/2018 DISCHARGE DATE: PRINCIPAL DIAGNOSIS: Acute hypercapnic respiratory failure. SECONDARY DIAGNOSES: 1. Acute delirium secondary to CO2 narcosis. 2. Probable transient ischemic attack. 3. History of osteoarthritis with chronic back pain; on chronic opioid use. 4. Hypertension. 5. History of atrial fibrillation. 6. History of congestive heart failure with preserved left ventricular ejection fraction. DISCHARGE MEDICATIONS: 1. Amlodipine 5 mg p.o. twice a day. 2. Apixaban 5 mg p.o. twice a day. 3. Vitamin D 2000 units p.o. once a day. 4. Clonidine 0.1 g p.o. twice a day. 5. Hydralazine 50 mg p.o. 3 times a day. 6. Omeprazole 40 mg p.o. daily. 7. Metoprolol 12.5 mg p.o. twice a day. 8. Losartan 100 mg p.o. daily. 9. Lasix 40 mg p.o. daily. 10. Magnesium oxide 250 mg p.o. daily. 11. Vance 10/325 every 6 hours as needed. CONSULTATIONS DONE DURING THIS HOSPITAL STAY: Dr. Nazario [*] Maintenance Aide. PROCEDURES DONE DURING THIS HOSPITAL STAY: Brain MRI on 07/27/2018. CT brain 07/25/2018. HOSPITAL COURSE: Ms. Su is a 78-year-old female who has a history of a previous cerebrovascular accident, chronic atrial fibrillation, hypertension, diastolic heart failure, history of GI bleed on Xarelto. She was initially admitted to [facility] but subsequently transferred to [facility] for further management. She had presented with a change in mental status. There was concern for possible stroke in this patient. She did have a CT scan of the brain which is unremarkable. The patient was noted to have CO2 retention on her blood gases, and this was thought to be the reason why patient's mental status was altered. Patient was placed on BiPAP. She subsequently had an MRI of the brain which did not show any acute infarct. It also showed chronic ischemic microvascular white matter changes. Over time, the patient did well. She did improve. Mental status also got better, and she was also weaned off the BiPAP. During the course of the hospital stay, the patient was seen by the Pulmonology team. At this time, she has done well. She is stable. She can now be discharged to rehab where she will continue to recuperate. Diet will be healthy heart. Activity will be as tolerated. She will need PT/OT evaluation. EXAMINATION: Vital Signs: Temperature 97.8 degrees, pulse 60, respiratory rate 18, blood pressure 104/48. Oxygen saturation 98%. HEENT: Atraumatic, normocephalic. Cardiovascular: S1, S2. Respiratory System: No rales or rhonchi noted. Abdomen: Soft, nontender. No masses felt. Extremities: No evidence of edema. Central Nervous System: No obvious focal deficits. PLAN: Discharge to rehab today. The patient to follow up with pulmonology as well as primary care physician as an outpatient. cc: Fran Kennedy MD
== END 2018-08-02 15:52 | DRG 189 ==
LOC: P.ED 19:45 → P.MEDSURG 07-26 02:02 → SUATTDRO 07-26 02:02 → ICU 07-26 20:43 → 3N 07-29 12:49
PROVIDERS: ATTEND Internal Medicine
CPT/HCPCS: 51702; 70450; 70551; 71010; 71020; 71045; 71046; 80048; 80053; 80069; 80104; 80301; 80305; 81001; 82306; 82805; 82948; 83721; 83735; 83880; 84100; 84484; 85025; 85610; 85730; 87088; 87324; 93005; 93306; 93880; 94660; 94761; 96374; 96375; 97162; 97530; 99285; 99291; A9270; G0431; G0434; G0477; J0131; J0360; J1940; J2185; J2405; J7030; J7040; XXXXX

== ENCOUNTER 2018-09-05 14:44 | Inpatient (IN) ==
[2018-09-05] MEDS ORDERED: ZOFRAN IV ONE (15:18)
[2018-09-05] MEDS ORDERED: LASIX IV ONE (15:18)
[2018-09-05] MEDS ORDERED: MORPHINE IV ONE (15:18)
--- NOTE | 2018-09-05 16:58 | Diag Imaging Result Doc PS360 ---
EXAM: SHOULDER-RIGHT INDICATION: fall TECHNIQUE: 3 views COMPARISON: None available. FINDINGS: The bones are osteopenic. There is no discrete fracture, dislocation, or significant intrinsic osseous lesion. The visualized joint spaces are essentially unremarkable. The surrounding soft tissues are essentially unremarkable. IMPRESSION: No evidence of acute osseous abnormality. Electronically signed by Isak Vazquez 09/05/2018 4:56 PM
--- NOTE | 2018-09-05 17:00 | Diag Imaging Result Doc PS360 ---
EXAM: XRAY PELVIS W/HIP 2-3VW RT INDICATION: fall TECHNIQUE: 4 views COMPARISON: 08/03/2016 FINDINGS: The bones are osteopenic. There has been interval ORIF of the mid shaft fibular fracture seen on the previous study. There is bony bridging. There is no definite acute fracture, dislocation, or significant intrinsic osseous lesion, otherwise. The surrounding soft tissues are essentially unremarkable. IMPRESSION: No evidence of acute osseous abnormality. Electronically signed by Isak Vazquez 09/05/2018 4:58 PM
--- NOTE | 2018-09-05 17:01 | Diag Imaging Result Doc PS360 ---
EXAM: CLAVICLE-RIGHT INDICATION: fall TECHNIQUE: 3 views COMPARISON: None. FINDINGS: The bones are osteopenic. There is no discrete fracture, dislocation, or significant intrinsic osseous lesion. The visualized joint spaces are essentially unremarkable. The surrounding soft tissues are essentially unremarkable. IMPRESSION: No evidence of acute osseous abnormality. Electronically signed by Isak Vazquez 09/05/2018 4:59 PM
--- NOTE | 2018-09-05 17:02 | Diag Imaging Result Doc PS360 ---
EXAM: KNEE 3 VIEWS RIGHT INDICATION: right knee pain s/p fall TECHNIQUE: 3 views COMPARISON: 08/03/2016 FINDINGS: There is metallic hardware associated with the fibula. There is a healed fibular shaft fracture. There is no discrete fracture, dislocation, or significant intrinsic osseous lesion, otherwise. There is degenerative narrowing of the medial and lateral compartments of the knee. There is diffuse soft tissue edema around the knee. IMPRESSION: No evidence of acute osseous abnormality. Electronically signed by Isak Vazquez 09/05/2018 5:00 PM
--- NOTE | 2018-09-05 17:03 | Diag Imaging Result Doc PS360 ---
EXAM: CHEST-PORTABLE INDICATION: sob TECHNIQUE: One view COMPARISON: 07/31/2018 FINDINGS: Inspiration is somewhat suboptimal. The lungs are grossly clear. There is no discrete pleural fluid collection or pneumothorax. There is stable cardiomegaly. IMPRESSION: Stable cardiomegaly. No definite acute chest pathology by plain radiograph. Electronically signed by Isak Vazquez 09/05/2018 5:01 PM
--- NOTE | 2018-09-05 17:23 | Diag Imaging Result Doc PS360 ---
EXAM: CT HEAD/C-SPINE W/O CONTRAST INDICATION: head injury/pain TECHNIQUE: This exam was performed using automated exposure control, adjustment of mA or kV according to patient size, and/or use of iterative reconstruction technique. COMPARISON: CT head dated 07/25/2018 FINDINGS: Head: There is stable patchy low attenuation in the periventricular and subcortical white matter suggesting moderate microangiopathy. There is stable diffuse brain atrophy. There is no definite acute infarct given the limited sensitivity of CT versus MRI. There is no discrete intracranial mass, mass effect, or intracranial hemorrhage. The surrounding soft tissues are essentially unremarkable. The calvaria is intact. C-spine: The bones are osteopenic. There is mild to moderate degenerative disc disease at and below the C4-5 level, probably most prominent at C6-7. Otherwise, there is no discrete fracture, subluxation, or intrinsic osseous lesion. The surrounding soft tissues are essentially unremarkable. IMPRESSION: 1.Stable chronic changes but no evidence of acute intracranial pathology. 2.Degenerative changes as described. No evidence of fracture or other definite acute C-spine injury. Electronically signed by Isak Vazquez 09/05/2018 5:21 PM
[2018-09-05 18:17] LABS: BASO# 0.02 X1000 (0.0-0.2); BASO% 0.2 % (0.0-0.8); EOS# 0.03 X1000 (0.0-0.7); EOS% 0.3 % (0.0-10.0); HEMATOCRIT 28.6 % (37.0-47.0); LYMPH# 1.55 X1000 (1.2-3.4); LYMPH% 15.2 % (20.5-51.1); MCH 30.9 PG (27-31); MCHC 31.5 g/dL (33-37); MCV 98.3 FL (81-99); MONO# 0.85 X1000 (0.11-0.59); MONO% 8.3 % (1.7-9.3); MPV 9.5 FL (7.4-10.4); NEUT# 7.76 X1000 (1.4-6.5); PLT 231 X1000 (130-400); RBC 2.91 XMIL (4.2-5.4); RDW 13.8 % (11.5-14.5); WBC 10.21 X1000 (4.8-10.8)
[2018-09-05 18:24] LABS: INR 1.28
--- NOTE | 2018-09-05 18:25 | PROVIDER DOCUMENTATION ---
This chart was entered by Vivienne Chacko Scribe, acting as scribe for Francis Galvez MD. HPI-Musculoskeletal Pain/Inj - GENERAL Stated Complaint: FALL Time Seen by Provider: 09/05/18 15:14 Source: patient - HX OF PRESENT ILLNESS-MUSKULOSKELTAL Quality of Pain: reports: aching Severity in ED: mild Onset/Duration: just prior to arrival Timing: still present Modifying Factors: improves with: nothing Any recent injury?: Yes (fall) Locality of Occurance: Home Similar Symptoms Previously?: No Recently seen or treated by another doctor?: No - FALL INJURY Location of Pain/Injury: reports: upper extremity (right shoulder), lower extremity (right hip) Pain Radiation: reports: no radiation Reason for Fall: reports: slipped Symptoms prior to fall:: reports: none Loss of Consciousness: no loss of consciousness Injury Associated Symptoms: reports: unable to bear weight, trouble walking - HIP/PELVIS PAIN/INJURY Hip Pain Location: reports: hip (R) Pain Radiation: reports: no radiation Context / Method of Injury: reports: fall Associated Symptoms: reports: denies symptoms - LOWER EXTREMITY PAIN/INJURY Lower Extremities Pain: hip: right Context / Method of Injury: reports: fell Associated Symptoms: reports: denies symptoms - UPPER EXTREMITY PAIN/INJURY Extremities Pain Location: shoulder: right Context / Method of Injury: reports: fell Associated Symptoms: reports: denies symptoms Review of Systems - Adult - REVIEW OF SYSTEMS - ADULT Constitutional: reports: no symptoms reported Eyes: reports: no symptoms reported Ears, Nose, Mouth & Throat: reports: no symptoms reported Cardiovascular: reports: no symptoms reported Respiratory: reports: no symptoms reported Gastrointestinal: reports: no symptoms reported Genitourinary: reports: no symptoms reported Musculoskeletal: reports: other (right hip and right shoulder pain). denies: back pain, neck pain Integumentary: reports: no symptoms reported Neurological: reports: no symptoms reported Psychiatric: reports: no symptoms reported Endocrine: reports: no symptoms reported Hematologic/Lymphatic: reports: no symptoms reported Allergic/Immunologic: reports: no symptoms reported All Other Systems: Reviewed and Negative Past History - Adult - PAST MEDICAL HISTORY-ADULT Review of Records: reports: Nursing Assessment Review, Medications Reviewed, Social history reviewed & non-contributory. Major Childhood Illnesses: reports: denies history Cardiovascular: reports: cardiac disease, A-Fib, CHF (ECHO 11/12 50%), HTN Respiratory: reports: COPD, other (chf) Gastrointestinal: reports: denies history Obstetrical/Gynecological: reports: denies history Genitourinary: reports: denies history Musculoskeletal: reports: arthritis, chronic pain (back) Neurological: reports: Alzheimer's, CVA, dementia, TIA Psychiatric: reports: depression Endocrine/Immune: reports: denies history Other Conditions: reports: denies history - PRIOR SURGERIES/PROCEDURES Surgical/Procedure History: reports: appendectomy, cholecystectomy, hysterectomy , other (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) - IMMUNIZATION STATUS Childhood Immunizations: See Nurse Assessment Flu Vaccine: See Nurse Assessment - FAMILY HISTORY Family History: reviewed, not pertinent - SOCIAL HISTORY Smoking: cigarettes (former) Substance Use: denies Physical Exam-Injury Related - Physical Exam-Injury Related Initial Vital Signs Reviewed: Yes General Appearance: alert, no apparent distress Neck: normal inspection Respiratory: chest non-tender, other (audible rhonchi) Cardiovascular: normal peripheral pulses, gallop/S3, other (ectopic beat present.) Abdominal Exam: normal bowel sounds, non tender, soft Rectal Exam: normal rectal tone, black stool Hemoccult Exam: other (heme pending at shift change) Extremity: tenderness (right knee. right clavicle. right humerus.), other ( limited ROM to right shoulder and right hip due to pain. edema to bilateral lower extremities.) Integumentary: normal color, warm/dry Neurologic: grossly normal Psych/Mental Status: normal mood/affect, oriented x 3 Progress - PLAN OF CARE/RESULTS Progress/Plan/Lab Results: Vital Signs - 8 hr 09/05/18 17:19 09/05/18 17:25 09/05/18 17:27 Temperature 98 F Pulse Rate 60 60 63 Respiratory Rate 18 20 15 Blood Pressure 143/59 143/59 O2 Sat by Pulse Oximetry 96 96 97 09/05/18 17:30 09/05/18 17:40 09/05/18 17:50 Temperature Pulse Rate 61 62 63 Respiratory Rate 17 20 19 Blood Pressure O2 Sat by Pulse Oximetry 97 96 97 09/05/18 18:00 Temperature Pulse Rate 54 L Respiratory Rate 18 Blood Pressure O2 Sat by Pulse Oximetry 98 09/05/18 17:30 Influenza Screen - Final Nasopharyngeal Laboratory Results - last 24 hr 09/05/18 09/05/18 09/05/18 17:55 17:55 17:55 WBC 10.21 RBC 2.91 L Hgb 9.0 L Hct 28.6 L MCV 98.3 MCH 30.9 MCHC 31.5 L RDW Std Deviation 13.8 Plt Count 231 MPV 9.5 Immature Gran % (Auto) 0.0 Neut % (Auto) 76.0 H Lymph % (Auto) 15.2 L Winston % (Auto) 8.3 Eos % (Auto) 0.3 Baso % (Auto) 0.2 Immature Gran # (Auto) 0.00 Neut # (Auto) 7.76 H Lymph # (Auto) 1.55 Winston # (Auto) 0.85 H Eos # (Auto) 0.03 Baso # (Auto) 0.02 PT INR Sodium 129 L Potassium 5.5 H Chloride 92 L Carbon Dioxide 23 L Anion Gap 14 BUN 30 H Creatinine 1.3 H Estimated GFR/1.73 m2 40 BUN/Creatinine Ratio 23 Glucose 99 Calculated Osmolality 265 Calcium 9.2 Magnesium 2.0 Total Bilirubin 0.35 AST 18 ALT 5 L Alkaline Phosphatase 60 Creatine Kinase 80 Troponin T Rvk-M-[id number] Pept Total Protein 5.9 L Albumin 2.9 L Globulin 3.0 Albumin/Globulin Ratio 1.0 Plasma Lactate 0.8 Urine Source Urine Color Urine Turbidity Urine pH Ur Specific Spencer Urine Protein Ur Glucose (Stick) Ur Ketones (Stick) Urine Blood Urine Nitrite Urine Bilirubin Urobilinogen Dipstick Urine Leukocytes Urine WBC (Auto) Urine RBC (Auto) U Epithel Cells (Auto) Urine Bacteria (Auto) 09/05/18 09/05/18 09/05/18 17:55 17:55 17:55 WBC RBC Hgb Hct MCV MCH MCHC RDW Std Deviation Plt Count MPV Immature Gran % (Auto) Neut % (Auto) Lymph % (Auto) Winston % (Auto) Eos % (Auto) Baso % (Auto) Immature Gran # (Auto) Neut # (Auto) Lymph # (Auto) Winston # (Auto) Eos # (Auto) Baso # (Auto) PT 17.0 H INR 1.28 Sodium Potassium Chloride Carbon Dioxide Anion Gap BUN Creatinine Estimated GFR/1.73 m2 BUN/Creatinine Ratio Glucose Calculated Osmolality Calcium Magnesium Total Bilirubin AST ALT Alkaline Phosphatase Creatine Kinase Troponin T < 0.010 Kqo-T-Hjmqjbdnmpd Pept 8062 H Total Protein Albumin Globulin Albumin/Globulin Ratio Plasma Lactate Urine Source Urine Color Urine Turbidity Urine pH Ur Specific Spencer Urine Protein Ur Glucose (Stick) Ur Ketones (Stick) Urine Blood Urine Nitrite Urine Bilirubin Urobilinogen Dipstick Urine Leukocytes Urine WBC (Auto) Urine RBC (Auto) U Epithel Cells (Auto) Urine Bacteria (Auto) 09/05/18 18:30 WBC RBC Hgb Hct MCV MCH MCHC RDW Std Deviation Plt Count MPV Immature Gran % (Auto) Neut % (Auto) Lymph % (Auto) Winston % (Auto) Eos % (Auto) Baso % (Auto) Immature Gran # (Auto) Neut # (Auto) Lymph # (Auto) Winston # (Auto) Eos # (Auto) Baso # (Auto) PT INR Sodium Potassium Chloride Carbon Dioxide Anion Gap BUN Creatinine Estimated GFR/1.73 m2 BUN/Creatinine Ratio Glucose Calculated Osmolality Calcium Magnesium Total Bilirubin AST ALT Alkaline Phosphatase Creatine Kinase Troponin T Psr-C-Vnxzmtbclst Pept Total Protein Albumin Globulin Albumin/Globulin Ratio Plasma Lactate Urine Source CATH Urine Color YELLOW Urine Turbidity HAZY Urine pH 7.0 Ur Specific Spencer 1.010 Urine Protein TRACE A Ur Glucose (Stick) NEGATIVE Ur Ketones (Stick) NEGATIVE Urine Blood NEGATIVE Urine Nitrite NEGATIVE Urine Bilirubin NEGATIVE Urobilinogen Dipstick NORMAL Urine Leukocytes LARGE A Urine WBC (Auto) TNTC A Urine RBC (Auto) <10 U Epithel Cells (Auto) <10 Urine Bacteria (Auto) NEGATIVE Orders Category Date Time Status Gutierrez Cath Insertion ORDERED Care 09/05/18 15:15 Active Nursing- Obtain EKG once Care 09/05/18 15:17 Active Saline Loc NOW Care 09/05/18 15:15 Active CHEST-PORTABLE [RAD] Stat Exams 09/05/18 15:16 Completed CLAVICLE-RIGHT [RAD] Stat Exams 09/05/18 15:[address] HEAD/C-SPINE W/O CONTRAST [CT] Stat Exams 09/05/18 15:16 Completed KNEE 3 VIEWS RIGHT [RAD] Stat Exams 09/05/18 15:16 Completed SHOULDER-RIGHT [RAD] Stat Exams 09/05/18 15:17 Completed XRAY PELVIS W/HIP 2-3VW RT [RAD] Stat Exams 09/05/18 15:17 Completed BLOOD CULTURE [BLDCUL] Stat Lab 09/05/18 18:42 Received CBC WITH ELECTRONIC DIFF [HEME] Stat Lab 09/05/18 17:55 Completed CK PROFILE [SP CHEM] Stat Lab 09/05/18 17:55 Completed COMPREHENSIVE METABOLIC PANEL [CHEM] Stat Lab 09/05/18 17:55 Completed INFLUENZA SCREEN A/B Stat Lab 09/05/18 17:30 Completed LACTATE, PLASMA [CHEM] Stat Lab 09/05/18 17:55 Completed MAGNESIUM [CHEM] Stat Lab 09/05/18 17:55 Completed OCCULT BLOOD SCREENING [STOOL] Stat Lab 09/05/18 18:44 Uncollected PRO B-NATRIURETIC PEPTIDE Stat Lab 09/05/18 17:55 Completed PROTIME WITH INR [COAG] Stat Lab 09/05/18 17:55 Completed TROPONIN T Stat Lab 09/05/18 17:55 Completed TSH Stat Lab 09/05/18 17:55 Received URINALYSIS W/POSS RFLX CULT [URINALYSIS] Stat Lab 09/05/18 18:30 Completed Furosemide [Lasix] Med 09/05/18 15:18 Discontinued 80 mg IV NOW ONE Morphine Med 09/05/18 15:18 Discontinued 2 mg IV NOW ONE Ondansetron [Zofran] Med 09/05/18 15:18 Discontinued 4 mg IV NOW ONE Pantoprazole 80 mg/Ns Bolus Over 30 Min. Med 09/05/18 18:56 Ordered Pantoprazole [Protonix] 80 mg 0.9% Sodium Chloride Inj [Ns] 80 ml IV NOW Pantoprazole [Protonix] Med 09/05/18 18:56 Once 40 mg IV NOW ONE Sodium Chloride 0.9% Med 09/05/18 18:56 Once 10 ml INJ NOW ONE EKG [EKG] Stat Ther 09/05/18 15:15 Ordered [facility] [address] [facility] [address], [place] [address] Department of Imaging Patient: EUGENIA ESCOBAR ADM Date: 09/05/18 MR#: [id number] : 1940 ADM Status: REG ER Age/Sex: 78/F Room/Bed: Loc: ED Ordering Physician: Francis Galvez MD Family Physician: Harjeet Ye MD Reason for Procedure: sob ___ Signed EXAM: CHEST-PORTABLE INDICATION: sob TECHNIQUE: One view COMPARISON: 07/31/2018 FINDINGS: Inspiration is somewhat suboptimal. The lungs are grossly clear. There is no discrete pleural fluid collection or pneumothorax. There is stable cardiomegaly. IMPRESSION: Stable cardiomegaly. No definite acute chest pathology by plain radiograph. Electronically signed by Isak Vazquez 09/05/2018 5:01 PM 09/05/18 1701 Interpreting Physician: Isak Vazquez MD Dictated Date/Time: 09/05/18 1700 cc: Francis Galvez MD; Harjeet Ye MD Result Diagrams: 09/05/18 17:55 09/05/18 17:55 - REASSESSMENT Reassessment #1 Time Reassessed: 18:23 Status: improving (after meds. Diuresing. No fractures or Head injury on CT and x-rays. Labs obtained 1729) - EKG 1 Time of EKG reading by physician:: 19:00 EKG Read and Signed by:: Francis Galvez EKG Interpretation (*Must complete 3 of following elements*): Abnormal Rate: 61 Rhythm: atrial fibrillation with rate controlled [place]: normal QRS: LVH ST Wave: normal - XRAY 1 XRAY: Right XRAY Study: Shoulder Impression: See EMR Report ( EXAM: SHOULDER-RIGHT INDICATION: fall TECHNIQUE : 3 views COMPARISON: None available. FINDINGS: The bones are osteopenic. There is no discrete fracture, dislocation, or significant intrinsic osseous lesion. The visualized joint spaces are essentially unremarkable. The surrounding soft tissues are essentially unremarkable. IMPRESSION: No evidence of acute osseous abnormality. Electronically signed by Isak Vazquez 4:56 PM 09/05/18 0966 Interpreting Physician: Iska Vazquez MD Dictated Date/Time: 09/05/18 1657 cc: Francis Galvez MD; Harjeet Ye MD ) 2 XRAY: Right XRAY Study: Pelvis, Hip Impression: See EMR Report ( EXAM: XRAY PELVIS W/HIP 2-3VW RT INDICATION: fall TECHNIQUE: 4 views COMPARISON: 08/03/2016 FINDINGS: The bones are osteopenic. There has been interval ORIF of the mid shaft fibular fracture seen on the previous study. There is bony bridging. There is no definite acute fracture, dislocation, or significant intrinsic osseous lesion, otherwise. The surrounding soft tissues are essentially unremarkable. IMPRESSION: No evidence of acute osseous abnormality. Electronically signed by Isak Vazquez 4:58 PM 09/05/18 1658 Interpreting Physician: Isak Vazquez MD Dictated Date/Time: 09/05/18 1656 cc: Francis Galvez MD; Harjeet Ye MD ) 3 XRAY: Right XRAY Study: other (CLAVICLE) Impression: See EMR Report (EXAM: CLAVICLE-RIGHT INDICATION: fall TECHNIQUE : 3 views COMPARISON: None. FINDINGS: The bones are osteopenic. There is no discrete fracture, dislocation, or significant intrinsic osseous lesion. The visualized joint spaces are essentially unremarkable. The surrounding soft tissues are essentially unremarkable. IMPRESSION: No evidence of acute osseous abnormality. Electronically signed by Isak Vazquez 09/05/2018 4:59 PM 09/05/18 1659 Interpreting Physician: Isak Vazquez MD Dictated Date/Time: 09/05/188 cc: Francis Galvez MD; Harjeet Ye MD) 4 XRAY: Right XRAY Study: Knee Impression: See EMR Report ( EXAM: KNEE 3 VIEWS RIGHT INDICATION: right knee pain s/p fall TECHNIQUE: 3 views COMPARISON: 08/03/2016 FINDINGS: There is metallic hardware associated with the fibula. There is a healed fibular shaft fracture. There is no discrete fracture, dislocation, or significant intrinsic osseous lesion, otherwise. There is degenerative narrowing of the medial and lateral compartments of the knee. There is diffuse soft tissue edema around the knee. IMPRESSION: No evidence of acute osseous abnormality. Electronically signed by Isak Vazquez 09/05/2018 5:00 PM 09/05/18 1700 Interpreting Physician: Isak Vazquez MD Dictated Date/Time: 09/05/189 cc: Francis Galvez MD; Harjeet Ye MD) - CT/MRI 1 CT Study: Head (and C-Spine) Impression: Normal, See EMR Report (EXAM: CT HEAD/C-SPINE W/O CONTRAST INDICATION: head injury/pain TECHNIQUE: This exam was performed using automated exposure control, adjustment of mA or kV according to patient size, and/or use of iterative reconstruction technique. COMPARISON: CT head dated FINDINGS: Head: There is stable patchy low attenuation in the periventricular and subcortical white matter suggesting moderate microangiopathy. There is stable diffuse brain atrophy. There is no definite acute infarct given the limited sensitivity of CT versus MRI. There is no discrete intracranial mass, mass effect, or intracranial hemorrhage. The surrounding soft tissues are essentially unremarkable. The calvaria is intact. C-spine: The bones are osteopenic. There is mild to moderate degenerative disc disease at and below the C4-5 level, probably most prominent at C6-7. Otherwise, there is no discrete fracture, subluxation, or intrinsic osseous lesion. The surrounding soft tissues are essentially unremarkable. IMPRESSION : 1.Stable chronic changes but no evidence of acute intracranial pathology. 2.Degenerative changes as described. No evidence of fracture or other definite acute C-spine injury. Electronically signed by Isak Vazquez 09/05/2018 5:21 PM) Comparison with other Films: no changes - CONSULTS/PCP/HOSPITALIST Notification #1 *Consult/PCP/Hospitalist*: Tony paged at 0000 - CHANGE OF SHIFT REPORT (ED Provider) Report Given and Care Transferred to:: Dr. Pierre Time of Transfer: 19:00 Items Pending: Labs, Physician Consult/Arrival Departure - Departure Date of Disposition Decision: 09/05/18 Time of Disposition Decision: 18:59 DIAGNOSIS: Multiple contusions, GI bleeding Fall as cause of accidental injury at home as place of occurrence Qualifiers: Encounter type: initial encounter Qualified Code(s): W19.XXXA - Unspecified fall, initial encounter; Y92.009 - Unspecified place in unspecified non- institutional (private) residence as the place of occurrence of the external cause Acute exacerbation of CHF (congestive heart failure) Qualifiers: Heart failure type: systolic Qualified Code(s): I50.23 - Acute on chronic systolic (congestive) heart failure Anemia Qualifiers: Anemia type: iron deficiency Iron deficiency anemia type: chronic blood loss Qualified Code(s): D50.0 - Iron deficiency anemia secondary to blood loss ( chronic) Disposition: ADMITTED INPATIENT 09 Certified Medical Emergency: Emergent Condition: Fair Referrals and Follow-Ups: Harjeet Ye MD [Primary Care Provider] - - Critical Care Note This patient required my direct & personal management of CC.: No Attestation - Physician/ LUPILLO Attestation Patient care was provided by Advanced Practice Provider:: No The physician spent face to face time with patient:: Yes Advanced Practice Provider documentation review:: Supervising physician onsite and consulted in the evaluation and care of this patient. The physician did have a face to face encounter with the patient. This chart was documented by the indicated scribe, (Vivienne Chacko Scribe) and accurately reflects the services I performed and decisions made by me, Francis Galvez MD, as attested by the provider's signature.
[2018-09-05 18:47] LABS: URINE SOURCE CATH
[2018-09-05 18:48] LABS: ALBUMIN 2.9 g/dL (3.5-5.0); CALCIUM 9.2 mg/dL (8.8-10.2); CREATININE 1.3 mg/dL (0.5-0.9); POTASSIUM 5.5 mmol/L (3.5-5.1); TOTAL BILIRUBIN 0.35 mg/dL (0.20-1.00); TOTAL PROTEIN 5.9 g/dL (6.3-8.3)
[2018-09-05 18:52] LABS: BILIRUBIN URINE NEGATIVE (NEGATIVE); BLOOD URINE NEGATIVE (NEGATIVE); COLOR YELLOW; GLUCOSE URINE NEGATIVE (NEGATIVE); KETONE URINE NEGATIVE (NEGATIVE); LEUKOCYTES URINE LARGE (NEGATIVE); NITRITE URINE NEGATIVE (NEGATIVE); PROTEIN URINE TRACE mg/dL (NEGATIVE); TURBIDITY URINE HAZY (CLEAR); UR EPITHELIAL CELLS <10 /HPF (<10); URINE BACTERIA NEGATIVE /HPF; URINE RBC <10 /HPF (<10); URINE WBC TNTC /HPF (<10); UROBILINOGEN URINE NORMAL (NORMAL)
[2018-09-05] MEDS ORDERED: PROTONIX IV ONE (18:56)
[2018-09-05] MEDS ORDERED: SODIUM CHLORIDE 0.9% INJ ONE (18:56)
[2018-09-05] MEDS ORDERED: PROTONIX 80 MG in NS 80 ML IV ONE (18:56)
[2018-09-05] MEDS ORDERED: NS 1,000 ML IV SCH ×2 (20:30→23:15)
[2018-09-05] MEDS ORDERED: ZOFRAN IV PRN (22:01)
[2018-09-05] MEDS ORDERED: TESSALON PO PRN (22:55)
[2018-09-05] MEDS ORDERED: ATIVAN PO PRN (22:55)
[2018-09-05] MEDS ORDERED: DUONEB (A & A) INH PRN (23:13)
[2018-09-05] MEDS ORDERED: VELTASSA PO ONE (23:23)
[2018-09-05] MEDS: DUONEB (A & A) INH SCH (23:51)
[2018-09-06] MEDS: LASIX IV SCH ×3 (00:02→10:39)
[2018-09-06] MEDS: PROTONIX 80 MG in NS 80 ML IV SCH ×3 (00:38→21:28)
[2018-09-06] MEDS: RESTORIL PO SCH (00:39)
[2018-09-06] MEDS: MUCINEX PO SCH ×3 (00:39→11:02)
[2018-09-06 02:21] LABS: HEMATOCRIT 24.3 % (37.0-47.0); HEMOGLOBIN 7.4 g/dL (12.0-16.0)
--- NOTE | 2018-09-06 03:16 | HISTORY AND PHYSICAL ---
HISTORY OF PRESENT ILLNESS: The patient seen on the floor late this evening. The patient came in status post fall from the [facility]. I think she is a long-term resident at [facility]. Looking at the labs, they have been having issues with hyponatremia, respiratory failure, hyperkalemia. She had labs done on the , with a creatinine of 1.1, but her creatinine has been up to 2.1 on the . She does reportedly have a history of CHF. Her echocardiogram at the end of June showed an EF of 70% though. No clear diastolic heart failure documented. It is not clear she has congestive heart failure, but she does have a history of atrial fibrillation. She came in today, had multiple evaluations. Her hemoglobin and hematocrit was noted to be low, although realistically, has not changed much. It has dropped a little bit since the end of June, and , but it has been stable for the last month. They did a heme check on her, and her stool was dark black and heme-positive. She was also found to be hyperkalemic. Her proBNP was mildly elevated. Now, on evaluation, she does have audible, I would say wheezing, not crackles, but wheezing. Her chest x-ray was clear. Her proBNP is elevated, but at a level it has been higher than that previously. She has had vascular congestion, which is not documented on today's chest x-ray. In any case, the patient was admitted for GI bleed, status post fall. She is on chronic anticoagulation with apixaban at low dose. She does not report any bloody stool or abdominal pain. She says she has been short of breath though for a little bit of time now. The most recent admission was for possible CVA, although I think her MRI did not show an acute CVA. I do think she has some component of dementia related to her issues here. PAST MEDICAL HISTORY: 1. Atrial fibrillation. 2. History of CVA x2. 3. Hypertension. 4. Chronic back pain. 5. Osteoarthritis. 6. CHF, with a preserved EF. Again, there was not documented diastolic failure. PAST SURGICAL HISTORY: 1. She has had amputation of the right foot toes. 2. Total abdominal hysterectomy. 3. Breast reduction surgery. 4. Bilateral cataract surgery. SOCIAL HISTORY: She is a [facility] patient. No alcohol. No current tobacco. She quit that about, by record, 13 years ago. ALLERGIES: IV dye, iodinated contrast, latex, and natural rubber. REVIEW OF SYSTEMS: Constitutional: She denies any chest pain. She does admit to cough and shortness of breath. Cardiovascular: No chest pain. Pulmonary: As described. GI: No nausea, vomiting, diarrhea. : No dysuria. No bleeding that she is aware of. PHYSICAL EXAMINATION: VITAL SIGNS: Blood pressure is 118/36, heart rate of 62, respiratory rate 18, temperature 97.6 degrees, 95% on 2 L. CARDIOVASCULAR: Regular rate and rhythm. PULMONARY: Bilateral breath sounds. She had diffuse rhonchi and wheezing. I did not appreciate rales per se, but she had upper airway noise. GI: Soft, nontender, nondistended. Bowel sounds were positive. NEUROLOGIC: Nonfocal. MUSCULOSKELETAL: 4/5 in all 4 extremities. EXTREMITIES: Her peripheral edema was 2+, with chronic venous changes all the way up to her knees. SKIN: She did appear pale as well, as far as skin exam. LABORATORY DATA: Her hemoglobin and hematocrit is 9 and 28. No white count. Sodium is 129, potassium 5.5. BUN and creatinine are 30 and 1.3, which is up from baseline. It has been in that level before. That is not a change for her, per se. She has been lower, but she has also been higher. ProBNP 8000. Chest x-ray did show cardiomegaly. Her knee, clavicle, hip, pelvis, shoulder, head CT, all of those were negative. ASSESSMENT: A 78-year-old female presenting with history of atrial fibrillation, heart failure, presenting with possible gastrointestinal bleed. 1. Gastrointestinal bleed. Sounds like a possible upper gastrointestinal bleed. We will initiate Protonix, follow serial hemoglobin and hematocrit. Eliquis has been discontinued, obviously. We will get a GI consult. Dr. Richardson is on, and we will follow closely. 2. Respiratory insufficiency. Her x-ray is relatively clear, and not clear this is heart failure, but she does have audible kind of wheezes and crackles. Her heart size is generous. I am going to continue diuretics. She did have some diuretics in the ER. We will also continue breathing treatments and repeat her chest x-ray in the morning. We may have to adjust her medications accordingly. 3. Hyperkalemia. We will monitor her on telemetry. I am going to go ahead and give her a dose of Veltassa and follow. 4. Hyponatremia. May be related to diuretics versus volume overload from congestive heart failure. She does have significant peripheral edema. We will check urine electrolytes and monitor closely. She may be a candidate for Samsca if not much improved. 5. Dementia, with behavioral issues. Appears relatively well-controlled. She is on Depakote, which we will continue at this time. 6. Chronic renal failure, looks like stage 3. We will continue to monitor, especially while she is on diuretics. cc: Charli Frederick MD
[2018-09-06] MEDS: DUONEB (A & A) INH SCH ×6 (03:52→23:34)
--- NOTE | 2018-09-06 07:44 | EKG Report ---
Test Performed on : 09/05/2018 6:46:25 PM Test Reason : SOB, fall Blood Pressure : / mmHG Vent. Rate : 061 BPM Atrial Rate : 092 BPM P-R Int : 000 ms QRS Dur : 082 ms QT Int : 426 ms P-R-T Axes : 000 039 039 degrees QTc Int : 428 ms Atrial fibrillation. Abnormal ECG When compared with ECG of 25-JUL-2018 20:07, (Unconfirmed) No significant change was found Unconfirmed Result
[2018-09-06] MEDS ORDERED: VITAMIN K 10 MG in NS 50 ML IV ONE (08:17)
--- NOTE | 2018-09-06 08:17 | Diag Imaging Result Doc PS360 ---
EXAM: CHEST-PORTABLE 09/06/2018 HISTORY: dyspnea TECHNIQUE: AP portable at 0626 COMMENT: There is cardiomegaly. There is mild interstitial pulmonary edema. There is some atelectasis in the left base which was not present on 09/05/2018. IMPRESSION: Cardiomegaly and mild pulmonary edema. Left lower lobe atelectasis. Electronically signed by Isael Jade 09/06/2018 8:14 AM
[2018-09-06 08:23] LABS: BASO# 0.01 X1000 (0.0-0.2); BASO% 0.1 % (0.0-0.8); EOS# 0.01 X1000 (0.0-0.7); EOS% 0.1 % (0.0-10.0); HEMATOCRIT 21.6 % (37.0-47.0); HEMOGLOBIN 6.6 g/dL (12.0-16.0); IMM GRAN# 0.03 X1000 (0.0-0.04); IMM GRAN% 0.3 % (0.0-0.5); LYMPH% 11.4 % (20.5-51.1); MCH 31.1 PG (27-31); MCHC 30.6 g/dL (33-37); MCV 101.9 FL (81-99); MONO# 0.76 X1000 (0.11-0.59); MONO% 8.7 % (1.7-9.3); MPV 9.8 FL (7.4-10.4); NEUT# 6.95 X1000 (1.4-6.5); NEUT% 79.4 % (42.2-75.2); PLT 253 X1000 (130-400); RBC 2.12 XMIL (4.2-5.4); WBC 8.76 X1000 (4.8-10.8)
[2018-09-06] MEDS: TYLENOL PO PRN (08:36)
[2018-09-06 08:49] LABS: AGAP 12; ALB/GLOB RATIO 1.5; ALBUMIN 2.8 g/dL (3.5-5.0); ALKALINE PHOSPHATASE 47 U/L (32-104); BUN 32 mg/dL (8-22); CALCIUM 8.7 mg/dL (8.8-10.2); CHLORIDE 93 mmol/L (98-107); COSMO 267; ESTIMATED GFR 24; GLUCOSE 85 mg/dL (70-104); GOT 12 U/L (10-30); GPT < 5 U/L (10-36); POTASSIUM 5.6 mmol/L (3.5-5.1); SODIUM 130 mmol/L (136-145); TCO2 25 mmol/L (25-35); TOTAL BILIRUBIN 0.32 mg/dL (0.20-1.00); TOTAL PROTEIN 4.7 g/dL (6.3-8.3)
[2018-09-06] MEDS ORDERED: CATAPRES PO SCH (09:00)
[2018-09-06] MEDS ORDERED: NORVASC PO SCH (09:00)
[2018-09-06] MEDS ORDERED: LASIX PO SCH (09:00)
--- NOTE | 2018-09-06 09:51 | EKG Report ---
Test Performed on : 09/06/2018 09:41:46 AM Test Reason : bradycardia Blood Pressure : / mmHG Vent. Rate : 061 BPM Atrial Rate : 234 BPM P-R Int : 000 ms QRS Dur : 082 ms QT Int : 400 ms P-R-T Axes : 000 024 060 degrees QTc Int : 402 ms Atrial fibrillation. Cannot rule out Anterior infarct , age undetermined Abnormal ECG When compared with ECG of 05-SEP-2018 18:46, (Unconfirmed) Nonspecific T wave abnormality now evident in Lateral leads Confirmed by Carlin OSORIO, Xavi Marlow ([id number]) on 09/07/2018 9:20:38 AM
[2018-09-06] MEDS: ICAR-C PO SCH ×3 (10:44→21:28)
[2018-09-06] MEDS: CITRACAL + D PO SCH ×2 (10:44→11:03)
[2018-09-06] MEDS: VITAMIN D PO SCH (10:44)
--- NOTE | 2018-09-06 12:22 | GASTROENTEROLOGY CONSULTATION ---
DATE: 09/06/2018 REFERRING PHYSICIAN: Dr. Bebe Desir. PRIMARY CARE DOCTOR: Dr. Harjeet Ye. REASON FOR CONSULTATION: GI bleeding. HISTORY OF PRESENT ILLNESS: Ms. Lopez is a 78-year-old female, who was admitted on 09/05/2018 after a fall. The patient's daughter present at bedside. She told me all the history, and I also reviewed the records. According to the patient's family and the records, the patient had one episode of bloody stool in the ER. She was noted to be anemic. Over the last 24 hours, her blood counts are trending down. The patient has been on Eliquis for history of atrial fibrillation and CVA. Her last dose was yesterday. She is going to receive 2 units of blood transfusion. The patient denies any abdominal pain. There is no documented vomiting of blood. Gastroenterology consulted for further management. PAST MEDICAL HISTORY: Atrial fibrillation, CVA x2, hypertension, chronic back pain, osteoarthritis, CHF with preserved EF and renal insufficiency. Long-term resident at [facility]. Congestive heart failure. Lung congestion. Anemia. PAST SURGICAL HISTORY: 1. Amputation of right feet/toes. 2. Total abdominal hysterectomy. 3. Breast reduction surgery. 4. Bilateral cataract surgery. SOCIAL HISTORY: She is a long-term resident. No history of alcohol, tobacco , or illicit drugs. She has a very supportive daughter at bedside. ALLERGIES: IV dye, natural rubber, latex. REVIEW OF SYSTEMS: Limited as most of the history is obtained from the patient' s records and the family member at bedside who denies any vomiting blood or abdominal pain. Per her daughter, the patient has a history of chest congestion and is being treated by the primary care team. The patient's daughter denied an knowledge of passing blood in the urine. MEDICATIONS IN THE HOSPITAL: 1. Depakote. 2. Melatonin. 3. Restoril. 4. Mucinex. 5. Tylenol. 6. Albuterol/ipratropium inhaler every 2 hours as needed every 4 hours. 7. Tessalon. 8. Calcium. 9. Vitamin D. 10. Vitamin D3. 11. Lasix. 12. Hydrocodone/acetaminophen. 13. Iron C b.i.d. 14. Ativan. 15. Zofran. 16. Protonix drip. PHYSICAL EXAMINATION: Vital Signs: Temperature 97.9, pulse of 68, respiratory rate 16, blood pressure 92/53, saturating 98% on nasal cannula. Body weight of 174 pounds. BMI 28.1 kg. General: moderately built and nourished, lying in bed in no acute distress. HEENT: Pale conjunctivae. No icterus. Nasal cannula in place. Neck: Supple. Abdomen: Soft, nontender, nondistended. No guarding. No rebound. Extremities: No cyanosis, clubbing. Neurologic: She is a little sleepy. She was able to wake up on commands and answer some questions. Most of the history obtained from the patient's daughter at bedside. LABORATORY DATA: Her hemoglobin and hematocrit is 6.6, hematocrit 21.6. White count of 8.7, platelet count of 253,000. MCV of 101.9. INR 1.2. PT of 17. Sodium 130, potassium 5.6, chloride 93, bicarb 24, anion gap 12. BUN of 32, creatinine 2, glucose of 85, calcium is 8.7. AST 12. ALT less than 5, alkaline phosphatase 47, total protein is 4.7, albumin of 2.8. Urinalysis showing large leukocytes and culture of the urine is preliminary showing no growth. Stool occult blood was positive. Blood culture x2 is being done. They are currently pending and flu screen on admission was negative. Chest x-ray done on admission showed cardiomegaly and mild pulmonary edema. Left lower lobe atelectasis. IMPRESSION AND PLAN: 1. Gastrointestinal bleed. 2. Anemia. 3. Macrocytic anemia. 4. History of atrial fibrillation; on Eliquis. 5. History of cerebrovascular accident; on Eliquis. 6. Chronic back pain. 7. Congestive heart failure and lung congestion with preserved ejection fraction , likely diastolic heart failure. RECOMMENDATIONS: We will continue on IV Protonix drip. We will continue on blood transfusion and will try to keep the hematocrit more than 27%. We will keep her on IV fluids with gentle hydration as well as IV Lasix. She is on nebulizer treatment. Her Eliquis was held for today. We will schedule her for EGD tomorrow under anesthesia. We will start her on clear liquid diet today, and the risks, benefits, indications and alternatives to EGD were discussed with the patient and family at bedside. All questions answered. The patient is a high risk for any endoscopic intervention because of multiple medical comorbid conditions. The patient and family will discuss the options and will let us know. The above plans explained to the patient and family and all questions answered. Please call us with any further questions. cc: MD Harjeet Crowe MD MTDDeya
[2018-09-06] MEDS ORDERED: ALBUTEROL 0.5% INH CONC FOR HYPERKALEMIA INH ONE (14:45)
[2018-09-06] MEDS ORDERED: D50W SYRINGE IV ONE (14:46)
[2018-09-06] MEDS ORDERED: SODIUM BICARBONATE 8.4% IV ONE (14:46)
[2018-09-06] MEDS ORDERED: HUMULIN R IV ONE (14:47)
[2018-09-06 15:42] LABS: UR CREAT RANDOM 92.6 mg/dL (11-20); UR PROT RANDOM 25.3 mg/dL
[2018-09-06 16:21] LABS: ALLEN TEST NO; BE 1.1 mmoll (-3.0-3.0); BLOOD TYPE ARTERIAL; HCO3-(ACT) 25.7 mmoll (20.0-26.0); METHB 1.7 % (0.0-1.5); O2(CT) 12.7 mL/dL (15.0-23.0); O2HB 94.3 % (95.0-99.0); PO2(98.6) 77 mmHg (60-100); SAMPLE BLOOD; SAO2 97.6 % (95.0-100.0); THB 9.5 g/dL (11.5-17.4); pH(98.6) 7.32 (7.35-7.45)
[2018-09-06 16:23] LABS: MODALITY CANNULA; PCO2(98.6) 54 mmHg (35-45)
[2018-09-06 18:08] LABS: HEMATOCRIT 30.6 % (37.0-47.0); HEMOGLOBIN 9.5 g/dL (12.0-16.0)
--- NOTE | 2018-09-06 19:35 | CARDIOLOGY CONSULTATION ---
DATE: 09/06/2018 REQUESTING PROVIDER: Hospitalist service. CHIEF COMPLAINT: Shortness of breath. Possible congestive failure. HISTORY: Mrs. Su is an unfortunate 78-year-old female who presented to the Emergency Room Department yesterday at about 3:00 p.m. with a history that she had [facility] a [facility]. On doing the standard workup they noted that she was pale and her hemoglobin was low. In addition, they did a chest x-ray that was reported by the radiologist as showing stable cardiomegaly, no acute pathology. But then, they also checked BUN and creatinine and that was elevated. Her proBNP was up to 8,062. Because she has atrial fibrillation and has previously been seen by Cardiology, they requested and assessment. The patient's hemoglobin continued to drift down and they have transfused her with two units of packed red blood cells and they have given her some intravenous Lasix. The patient is really very lethargic. She is not clear as to where she hurts but apparently when she first came into the ER she was complaining of pain on the right side of her body and for that matter they gave her morphine, which has kept her very sleepy throughout most of the hours of today. I am seeing her at about 3:20 p.m. PAST MEDICAL HISTORY: Positive for chronic/permanent atrial fibrillation. She has been anticoagulated at the time of this admission with Eliquis. Previously, she was anticoagulated with Xarelto and she suffered a GI bleed in the past. She has history of previous strokes, at least twice, when she was living in [place]. She has hypertension and chronic back pain. She has been told that she has diastolic heart failure. Most recent echocardiogram performed during recent hospital admission in June of 2018 revealed an ejection fraction of 70%, which is excellent. She has osteoarthritis. She has COPD and acid reflux. PAST SURGICAL HISTORY: She had cholecystectomy, hysterectomy, amputation of toes on the right foot, breast reduction, and cataract extraction. SOCIAL HISTORY: She is twice. She has children. Daughter is at the bedside. Patient used to be a smoker of one pack a day for 30 years, she quit about 20 years ago. FAMILY HISTORY: Father and brother had coronary heart disease. HOME MEDICATIONS: At the time of the present hospital admission included the following, she is on amlodipine 5 twice a day, apixaban 2.5 twice a day, calcium citrate/vitamin D, furosemide 40 daily, Depakote 250 at bedtime, clonidine 0.1 twice a day, vitamin D3 2000 units daily, lorazepam as needed, omeprazole 40 at bedtime, temazepam, hydrocodone, ipratropium with Albuterol, hydralazine, and guaifenesin. REVIEW OF SYSTEMS: The patient has been admitted multiple times to this hospital throughout the course of the past four years, between November 07, 2014 and November 12, 2014 she was admitted with heart failure. Between December 17, 2014 and December 22, 2014 with hypoxia and syncope. Between February 14 and February 15, 2015 because of atrial fibrillation. Between September 06 and September 09, 2016 with symptomatic bradycardia. She has been to the ER twice for chest pain and atrial fibrillation. Then, between December 26 and December 30, 2017 cellulitis of the left foot. January 17 through January 19, 2018 acute CHF exacerbation. July 26, 2018 through August 02, 2018 with presumptive diagnosis of stroke, however the patient actually had elevation of CO2 level and they diagnosed CO2 narcosis. That was corrected with BiPAP management and Dr. Marie was involved in her care. She has seen Dr. Rosenthal at the office in the past. The last time she was seen was, I believe, February 16 of last year for management of her atrial fibrillation, which has been stable. PHYSICAL EXAMINATION: Vital Signs: Blood pressure right now is 119/37, pulse 75, temperature 97.9, and respirations 18. General: She is arousable although she drifts into sleep. It takes her a little while for her to respond. She is very hard of hearing. Family is at the bedside. She appears to be very pale. HEENT: Unremarkable. Chest: Reveals diminished excursion of both lungs with loud rhonchi and expiratory wheezes. She sounds really congested. Cardiovascular: Heart sounds are very distant and irregular, not rapid. Abdomen: The abdomen is obese, nontender. Extremities: The extremities show evidence of partial amputation of the right foot. Diminished pulses in both legs. Neurological: Hard of hearing. Follows simple commands. Her memory is really not that good to recollect facts and dates. She is just lying in bed and appears to be acutely and chronically ill. LABORATORY DATA: Sodium 130, potassium 5.3, BUN 30, and creatinine 2.0. Her last hemoglobin 6.6, before transfusion. Troponin 0.010, 0.013. TSH 1.18. IMPRESSION: 1. Patient presenting really with consequences of a fall with incidental finding of gastrointestinal bleeding with dark stools and low hemoglobin/anemia, probably secondary to gastrointestinal bleeding. 2. Acute renal dysfunction. 3. Chronic obstructive pulmonary disease/chronic bronchitis with exacerbation. 4. Congestive heart failure, diastolic, chronic, probably stable. 5. History of previous strokes twice. 6. Patient is likely to have underlying coronary heart disease. RECOMMENDATIONS: At this point in time I would suggest the primary service to try to optimize her lung status before subjecting the patient to any further invasive evaluations. Her cardiac status, I believe, is stable for the most part. I would avoid beta-blockers because of her pulmonary congestion. Will try to use diltiazem to control her heart rate. She is to be transfused and diuretics have to be used very judiciously. We will see her as needed. I would strongly recommend to do arterial blood gases and request the help of Dr. Marie from Pulmonary, who knows her from recent admission. cc: Jonel Sanchez MD
[2018-09-06] MEDS ORDERED: LOPRESSOR PO SCH (21:00)
[2018-09-06] MEDS: DEPAKOTE SPRINKLE PO SCH (21:28)
[2018-09-06] MEDS: CARDIZEM PO SCH (21:29)
[2018-09-06 22:26] LABS: HEMATOCRIT 29.3 % (37.0-47.0); HEMOGLOBIN 9.3 g/dL (12.0-16.0)
[2018-09-07] MEDS: MELATONIN PO SCH ×2 (00:10→23:40)
[2018-09-07] MEDS: LASIX IV SCH ×2 (00:10→10:47)
[2018-09-07] MEDS: RESTORIL PO SCH (00:11)
[2018-09-07] MEDS: DUONEB (A & A) INH SCH ×6 (03:00→23:55)
[2018-09-07] MEDS: CARDIZEM PO SCH ×4 (03:32→20:33)
[2018-09-07 04:48] LABS: BASO# 0.03 X1000 (0.0-0.2); BASO% 0.2 % (0.0-0.8); HEMOGLOBIN 8.7 g/dL (12.0-16.0); IMM GRAN# 0.08 X1000 (0.0-0.04); IMM GRAN% 0.6 % (0.0-0.5); LYMPH# 1.47 X1000 (1.2-3.4); LYMPH% 10.9 % (20.5-51.1); MCH 29.6 PG (27-31); MCHC 31.1 g/dL (33-37); MCV 95.2 FL (81-99); MONO# 2.29 X1000 (0.11-0.59); MONO% 16.9 % (1.7-9.3); MPV 9.3 FL (7.4-10.4); NEUT# 9.65 X1000 (1.4-6.5); NEUT% 71.4 % (42.2-75.2); PLT 256 X1000 (130-400); RBC 2.94 XMIL (4.2-5.4); RDW 15.4 % (11.5-14.5); WBC 13.52 X1000 (4.8-10.8)
[2018-09-07 04:53] LABS: ALB/GLOB RATIO 1.3; ALBUMIN 2.8 g/dL (3.5-5.0); CALCIUM 8.6 mg/dL (8.8-10.2); CREATININE 2.8 mg/dL (0.5-0.9); POTASSIUM 4.8 mmol/L (3.5-5.1); TOTAL BILIRUBIN 0.44 mg/dL (0.20-1.00)
--- NOTE | 2018-09-07 07:20 | Diag Imaging Result Doc PS360 ---
EXAM: CHEST-PORTABLE 09/07/2018 HISTORY: dyspnea TECHNIQUE: AP portable at 0623 COMMENT: Positioning and technique are somewhat suboptimal. Considering the technical shortcomings of the examination there has probably been no significant change since 09/06/2018. There is still cardiomegaly and apparent atelectasis. IMPRESSION: Suboptimal exam. Essentially stable. Electronically signed by Isael Jade 09/07/2018 7:18 AM
[2018-09-07] MEDS: PROTONIX 80 MG in NS 80 ML IV SCH (07:41)
[2018-09-07] MEDS: CITRACAL + D PO SCH (08:22)
[2018-09-07] MEDS: VITAMIN D PO SCH (08:38)
[2018-09-07] MEDS: ICAR-C PO SCH ×2 (08:38→20:33)
[2018-09-07] MEDS ORDERED: DIPRIVAN 1% ONE (08:50)
[2018-09-07] MEDS ORDERED: XYLOCAINE-MPF 2% ONE (08:50)
[2018-09-07] MEDS ORDERED: ALBUMIN 25% IV ONE (10:01)
[2018-09-07 10:45] LABS: HEMATOCRIT 26.1 % (37.0-47.0); HEMOGLOBIN 8.1 g/dL (12.0-16.0)
[2018-09-07] MEDS ORDERED: DIFLUCAN PO ONE (10:45)
--- NOTE | 2018-09-07 12:21 | OPERATIVE NOTE ---
PROCEDURE DATE : 09/07/2018 PROCEDURE: Upper gastrointestinal endoscopy. PROVIDER: Landon Fitzpatrick MD. INDICATIONS: 1. Gastrointestinal bleeding. 2. Anemia. MEDICATIONS: Monitored anesthesia care. DESCRIPTION OF PROCEDURE: Prior to the procedure, a history and physical was performed, and patient's medications and allergies were reviewed. The patient's tolerance to previous anesthesia was also reviewed. The risks and benefits of the procedure and the sedation options and risks were discussed with the patient and daughter and bedside. All questions were answered and informed consent was obtained. After reviewing the risks and benefits, the patient was deemed in satisfactory condition to undergo the procedure. The endoscope was passed under direct visualization. Throughout the procedure, the patient's blood pressure, pulse, and oxygen saturations were monitored continuously. Endoscope was introduced through the mouth and advanced to the second part of the duodenum. The upper GI endoscopy was performed without difficulty. The patient tolerated the procedure well. COMPLICATIONS: No immediate complications. ESTIMATED BLOOD LOSS: Minimal. FINDINGS: There was notable Shantal esophagitis in the lower mid to third esophagus with some submucosal erythema suggestive of etiology of GI bleed. Biopsies were obtained with cold forceps to confirm candidiasis. Small hiatal hernia. Forward view and retroflexion of the stomach were unremarkable. The duodenal bulb and second portion of the duodenum were also normal. IMPRESSION: 1. Shantal esophagitis. 2. Small hiatal hernia. RECOMMENDATIONS: - Transition IV proton pump inhibitor to orally twice daily. - Start empiric fluconazole 400 mg x1 dose then 200 mg daily. - Start clear liquid diet. - Continue to trend hemoglobin and hematocrit daily. - Transfuse pRBCs as needed to maintain hemoglobin from 7 to 8. We will follow with you. Please call with any questions or concerns. [facility]
--- NOTE | 2018-09-07 12:46 | Diag Imaging Result Doc PS360 ---
US RENAL 2 (RETROPER) COMPLETE - 09/07/2018 INDICATION: cassidy on ckd TECHNIQUE: COMPARISON: None FINDINGS: The exam was extremely challenging due to the patient's condition. The left kidney is obscured. The right kidney is a bit atrophic. No hydronephrosis. The right kidney measures 8.9 x 3.8 x 3.7 cm. There is a Gutierrez catheter in the urinary bladder. IMPRESSION: Mild right renal atrophy but no acute disease. Electronically signed by Julio Brown 09/07/2018 12:44 PM
[2018-09-07] MEDS: TYLENOL PO PRN ×2 (14:19→20:33)
[2018-09-07] MEDS ORDERED: OFIRMEV 1000 MG/ISOTONIC SOLN 1,000 MG/100 ML BOTTLE IV PRN (14:40)
[2018-09-07] MEDS ORDERED: DIFLUCAN 400 MG/NS 400 MG/200 ML IVPB IV ONE (14:40)
--- NOTE | 2018-09-07 15:26 | PROGRESS NOTE ---
DATE: 09/07/2018 SUBJECTIVE: The patient is resting comfortably in bed. She is febrile and her oxygen requirements have increased since yesterday. OBJECTIVE: Vital Signs: Temperature 101.1 degrees, blood pressure 123/39, heart rate 84, respirations 18, O2 saturation 91% on 5 L nasal cannula. Urine output 300. General: This is a chronically ill-appearing elderly female lying in bed, in no acute distress. Head: Normocephalic atraumatic. Heart: S1, S2 normal. Lungs: Coarse breath sounds bilaterally. Abdomen: Positive bowel sounds. Soft, obese, nontender. Extremities: 1+ edema. Neurologic: The patient is lethargic and very hard of hearing. LABORATORY DATA: White blood cell count 13, hemoglobin 8.7, hematocrit 28, platelets 256,000. Sodium 129, potassium 4.8, chloride 90, CO2 27, BUN 40, creatinine 2.8, glucose 101, calcium 8.6, AST 22, ALT 7. DIAGNOSTIC STUDIES: Chest x-ray shows cardiomegaly and atelectasis. Renal ultrasound shows right renal atrophy. ASSESSMENT AND PLAN: 1. Acute hypoxemic and hypercapnic respiratory failure. The patient has pulmonary edema and chronic obstructive pulmonary disease. Will continue with diuretic therapy. Will also consult with the vendor manager. 2. Acute pulmonary edema. Continue with diuretic therapy. 3. Urinary tract infection. The urine culture is growing gram-positive cocci. Will start the patient on Zyvox. Since she has renal insufficiency at this time, will avoid vancomycin unless absolutely necessary. 4. Acute kidney injury on chronic kidney disease. Multifactorial. The patient has volume overload. She also has a low albumin and an active infection. Will consult with Nephrology. 5. Chronic obstructive pulmonary disease. Continue with bronchodilator therapy. 6. Gastrointestinal bleed. The patient had an EGD today that revealed Shantal esophagitis. Will continue on Protonix. 7. Shantal esophagitis. The patient is on intravenous Diflucan. 8. Anemia. Will continue to monitor the hemoglobin and hematocrit closely. Will also check iron studies. 9. Hyponatremia. Will monitor the patient's sodium level closely. 10. Deep vein thrombosis prophylaxis. The patient is on sequential compression devices. cc: Bebe Desir MD [facility] NETWORKDeya
[2018-09-07 15:43] LABS: ALLEN TEST YES; BE 5.1 mmoll (-3.0-3.0); BLOOD TYPE ARTERIAL; HCO3-(ACT) 28.9 mmoll (20.0-26.0); METHB 1.7 % (0.0-1.5); O2(CT) 11.5 mL/dL (15.0-23.0); O2HB 95.4 % (95.0-99.0); PO2(98.6) 88 mmHg (60-100); SAMPLE BLOOD; SAO2 98.6 % (95.0-100.0); THB 8.5 g/dL (11.5-17.4); pH(98.6) 7.37 (7.35-7.45)
[2018-09-07 15:45] LABS: MODALITY VENTIMASK; PCO2(98.6) 54 mmHg (35-45)
[2018-09-07 16:06] LABS: URINE SOURCE CATH
[2018-09-07 16:09] LABS: BILIRUBIN URINE NEGATIVE (NEGATIVE); BLOOD URINE SMALL (NEGATIVE); COLOR ORANGE; GLUCOSE URINE NEGATIVE (NEGATIVE); KETONE URINE NEGATIVE (NEGATIVE); LEUKOCYTES URINE LARGE (NEGATIVE); NITRITE URINE NEGATIVE (NEGATIVE); PH URINE 5.5; PROTEIN URINE TRACE mg/dL (NEGATIVE); SP GRAVITY URINE 1.004; TURBIDITY URINE TURBID (CLEAR); UROBILINOGEN URINE NORMAL (NORMAL)
[2018-09-07 16:14] LABS: UR EPITHELIAL CELLS <10 /HPF (<10); URINE BACTERIA 4+ /HPF; URINE WBC TNTC /HPF (<10)
[2018-09-07 16:37] LABS: HEMATOCRIT 26.3 % (37.0-47.0); HEMOGLOBIN 8.1 g/dL (12.0-16.0)
[2018-09-07 16:39] LABS: URINE CASTS NONE SEEN; URINE CRYSTALS NONE SEEN; URINE YEAST NONE SEEN
[2018-09-07 16:40] LABS: URINE SMALL ROUND CELLS NONE SEEN
[2018-09-07] MEDS: MAXIPIME 1 GM in NS 50 ML IV SCH ×2 (18:15→18:24)
[2018-09-07] MEDS: ZYVOX 600 MG/D5W 600 MG/300 ML IVPB IV SCH (20:18)
[2018-09-07] MEDS: DEPAKOTE SPRINKLE PO SCH (20:33)
[2018-09-07] MEDS: PROTONIX IV SCH (20:33)
[2018-09-07] MEDS: SODIUM CHLORIDE 0.9% INJ SCH (20:34)
[2018-09-07] MEDS ORDERED: PROTONIX PO SCH (21:00)
[2018-09-07 22:49] LABS: HEMATOCRIT 24.2 % (37.0-47.0); HEMOGLOBIN 7.6 g/dL (12.0-16.0)
[2018-09-07] MEDS: CLINIMIX E 4.25%-5% SOLUTION 1,000 ML IV SCH (23:40)
--- NOTE | 2018-09-08 02:31 | NEPHROLOGY CONSULTATION ---
DATE: 09/07/2018 REASON FOR CONSULTATION: [id number] kidney disease. CONSULTING PHYSICIAN: Dr. Desir. HISTORY OF PRESENT ILLNESS: This is a 78-year-old female admitted to the hospital after a fall, from the half-way. Has a history of congestive heart failure. She was noted to have elevated BUN and creatinine, with an elevated proBNP. The patient has had some anemia, along with infusion of packed red blood cells. The patient initially was going for an esophageal biopsy when I first went to see her. After she came back to the room, she was still very much asleep. In the interim of admission and today, her creatinine has risen to 2.8. PAST MEDICAL HISTORY: Atrial fibrillation, history of GI bleed on Xarelto, stroke, hypertension, chronic back pain, diastolic heart failure, COPD, reflux, osteoarthritis. PAST SURGICAL HISTORY: Cholecystectomy, hysterectomy, amputation of the toes, breast reduction, cataract extraction. ALLERGIES: Oral and IVP dye, latex, and natural rubber. FAMILY HISTORY: Noncontributory. SOCIAL HISTORY: She apparently lives at a half-way. REVIEW OF SYSTEMS: Unobtainable. Patient is asleep. PHYSICAL EXAMINATION: Vital Signs: Temperature 99 degrees, pulse 93, respiratory rate 23, blood pressure 131/47. Intake 890 mL. Output 300 mL. This is with a Gutierrez catheter. General: This is an elderly female, resting in bed. She does not appear in any distress. HEENT: Normocephalic, atraumatic. RADHA. Oral mucosa dry. Neck: Supple, without JVD. Cardiovascular: Irregularly irregular. Controlled rate. Pulmonary: She has rhonchi bilaterally. No wheeze. Abdomen: Soft. Positive bowel sounds. : Not inspected. Again, Gutierrze catheter at time of my exam. Extremities: Trace to 1+ edema. Integumentary: Skin is pale, warm, and dry. Neurologic: Asleep. LAB DATA: WBC of 13.5, hemoglobin 8.7. Sodium 129, potassium 4.8, CO2 27, BUN 40, creatinine 2.8, albumin 2.8. She has a BUN of 20.26. ASSESSMENT AND PLAN: [id number] kidney disease. It appears that there is some intravascular volume depletion, although she does have coarse breath sounds and congestive heart failure, which is chronic. She does not have any absolute indications for intervention in the form of dialysis. However, she does have a low albumin, with fluffy edema, requiring some Lasix for her fluid volume management. We will add albumin with each dose of Lasix over the rest of today and tomorrow, and evaluate further. She has a Pulmonary consult for her pulmonary edema and hypercapnic respiratory failure. We will continue to monitor closely, with further orders to follow. Dictated by CHERELLE Seay for Phi Lerma MD cc: Phi Lerma MD
[2018-09-08] MEDS: DUONEB (A & A) INH SCH ×6 (03:46→23:35)
[2018-09-08] MEDS: RESTORIL PO SCH ×2 (04:15→20:25)
[2018-09-08] MEDS: ALBUMIN 25% IV SCH ×2 (04:15→13:08)
[2018-09-08] MEDS: CARDIZEM PO SCH ×5 (04:16→20:25)
--- NOTE | 2018-09-08 04:56 | PULMONOLOGY CONSULTATION ---
DATE: 09/07/2018 REQUESTING PHYSICIAN: Dr. Desir. REASON FOR CONSULTATION: Acute respiratory failure. HISTORY OF PRESENT ILLNESS: Ms. Lopez is a 78-year-old white female with a [id number] history for tobacco, history of prior strokes, who was evaluated by this practitioner when she presented with stroke-like symptoms in June, associated with inability to follow commands. The patient had evidence of acute hypercapnic respiratory failure. The patient was diagnosed with probable transient ischemic attack, and was discharged with recommendation to undergo an outpatient sleep study. The patient presented to the emergency room 09/05 after sustaining a fall. She had some drop in hemoglobin level. There was concern that she has pulmonary edema, and was initiated on Lasix. Her hemoglobin did drop, and her Eliquis was held. The patient has had progressive increase in creatinine from 1.3 to 2.0 to 2.8. She was on nasal cannula, but underwent an EGD today, and upon returning, required increased FiO2 of 50%. She is a limited historian upon my arrival. She has mild work of breathing, with audible wheezing and rhonchi. PAST MEDICAL HISTORY/PROBLEM LIST: 1. Severe kyphosis, with multiple thoracic compression fractures, and multiple vertebroplasties. 2. Cardiomegaly. 3. History of strokes. 4. Hypertension. 5. Chronic back pain. 6. Osteoporosis. 7. Osteoarthritis. 8. Congestive heart failure, with preserved ejection fraction. 9. Status post hysterectomy. 10. Status post breast reduction. 11. Status post cataract surgery. SOCIAL HISTORY: Prior tobacco use, without recent tobacco consumption. No alcohol use. FAMILY HISTORY: Noncontributory to current presentation. REVIEW OF SYSTEMS: Limited, given the patient's current state. PHYSICAL EXAMINATION: General: Reveals a 78-year-old white female, with mild work of breathing and audible wheezing and rhonchi. Vital Signs: Maximum temperature in the last 24 hours is 101.4 degrees. Blood pressure 133/56, heart rate 87, respiratory rate 22, oxygen saturation 92% on Venturi mask. HEENT: Pupils are equal and reactive. Oropharynx appears clear, but dry. Neck: Supple. Chest: Reveals coarse rhonchi and wheezing. Cardiac: S1 and S2, with a regular rhythm. Abdomen: Soft. Extremities: Without edema. LABORATORIES: Sodium 129, potassium 4.8, chloride 90, bicarbonate 27, BUN 40, creatinine 2.8. Arterial blood gas 7.37, pCO2 of 54, PO2 of 88 on 50% Venturi mask. Arterial blood gas on presentation: pH 7.32, pCO2 54, PO2 of 77 on 3 L per nasal cannula. White blood count 13.52, hemoglobin 8.7, platelet count 256,000. Chest x-ray earlier today difficult to interpret. She has severe kyphosis. Her head is obscuring the upper portion of her exam. She has cardiomegaly and probable atelectasis. IMPRESSION: A 78-year-old with severe kyphosis, chronic ventilatory insufficiency, with chronic hypercapnic respiratory failure, who has undergone an EGD for possible GI bleeding, who now has acute hypoxemic respiratory failure. During this hospitalization, she has developed acute renal failure. RECOMMENDATIONS: 1. Make the patient NPO. Would perform a swallowing evaluation before restarting her diet. 2. Initiate Clinimix for nutrition support and for IV fluids. 3. Discontinue IV Lasix, given progressive renal failure. 4. Initiate BiPAP for hypercapnic and hypoxemic respiratory failure. 5. Overall prognosis is guarded, given her age, heart, and lung disease, recurrent admissions to the hospital. Would consider engaging family in end of life discussions. 6. Prognosis is guarded. cc: Aravind Marie MD
[2018-09-08 05:13] LABS: BASO# 0.02 X1000 (0.0-0.2); BASO% 0.2 % (0.0-0.8); HEMATOCRIT 25.1 % (37.0-47.0); HEMOGLOBIN 7.7 g/dL (12.0-16.0); IMM GRAN# 0.07 X1000 (0.0-0.04); IMM GRAN% 0.6 % (0.0-0.5); LYMPH# 1.44 X1000 (1.2-3.4); MCH 29.8 PG (27-31); MCHC 30.7 g/dL (33-37); MCV 97.3 FL (81-99); MONO# 1.95 X1000 (0.11-0.59); MONO% 16.2 % (1.7-9.3); MPV 9.2 FL (7.4-10.4); NEUT# 8.53 X1000 (1.4-6.5); PLT 249 X1000 (130-400); RBC 2.58 XMIL (4.2-5.4); RDW 15.4 % (11.5-14.5); WBC 12.01 X1000 (4.8-10.8)
[2018-09-08 05:31] LABS: ALBUMIN 3.2 g/dL (3.5-5.0); CALCIUM 9.3 mg/dL (8.8-10.2); CREATININE 2.5 mg/dL (0.5-0.9); PHOSPHORUS 4.1 mg/dL (2.7-4.5); POTASSIUM 5.4 mmol/L (3.5-5.1)
[2018-09-08 05:52] LABS: ALLEN TEST YES; BE 6.2 mmoll (-3.0-3.0); BLOOD TYPE ARTERIAL; HCO3-(ACT) 29.8 mmoll (20.0-26.0); METHB 1.2 % (0.0-1.5); O2(CT) 10.8 mL/dL (15.0-23.0); O2HB 94.7 % (95.0-99.0); PO2(98.6) 75 mmHg (60-100); SAMPLE BLOOD; SAO2 97.4 % (95.0-100.0); SRATE 12 BPM; pH(98.6) 7.37 (7.35-7.45)
[2018-09-08 05:55] LABS: MODALITY BI PAP; PCO2(98.6) 56 mmHg (35-45)
[2018-09-08] MEDS: MAXIPIME 1 GM in NS 50 ML IV SCH ×2 (06:23→17:28)
[2018-09-08] MEDS: ICAR-C PO SCH ×3 (08:59→20:25)
[2018-09-08] MEDS: ZYVOX 600 MG/D5W 600 MG/300 ML IVPB IV SCH ×2 (08:59→20:25)
[2018-09-08] MEDS: VITAMIN D PO SCH ×2 (08:59→09:21)
[2018-09-08] MEDS: PROTONIX IV SCH ×2 (08:59→20:25)
[2018-09-08] MEDS: CITRACAL + D PO SCH ×2 (08:59→09:21)
[2018-09-08] MEDS ORDERED: DIFLUCAN PO SCH (09:00)
[2018-09-08 10:14] LABS: HEMATOCRIT 25.5 % (37.0-47.0); HEMOGLOBIN 7.9 g/dL (12.0-16.0)
--- NOTE | 2018-09-08 10:42 | Diag Imaging Result Doc PS360 ---
CHEST-1 VIEW - 09/08/2018 INDICATION: pulmonary edema COMPARISON: 09/07/2018 FINDINGS: There are worsening, mild ill-defined perihilar infiltrates bilaterally. Heart size remains normal. No pneumothorax or pleural effusion. IMPRESSION: Worsening ill-defined perihilar infiltrates compatible with pulmonary edema. Electronically signed by Julio Brown 09/08/2018 10:40 AM
[2018-09-08] MEDS: OFIRMEV 1000 MG/ISOTONIC SOLN 1,000 MG/100 ML BOTTLE IV PRN ×2 (11:17→18:34)
[2018-09-08] MEDS ORDERED: NS 250 ML IV SCH (12:00)
[2018-09-08] MEDS ORDERED: DIFLUCAN 200 MG/NS 200 MG/100 ML IVPB IV SCH (12:00)
[2018-09-08] MEDS: NS 500 ML IV SCH (13:07)
[2018-09-08] MEDS ORDERED: KAYEXALATE PO ONE (13:13)
[2018-09-08] MEDS: CLINIMIX E 4.25%-5% SOLUTION 1,000 ML IV SCH (16:30)
[2018-09-08] MEDS: DIFLUCAN 200 MG/NS 200 MG/100 ML IVPB IV SCH (16:31)
[2018-09-08 18:32] LABS: HEMATOCRIT 33.1 % (37.0-47.0); HEMOGLOBIN 10.2 g/dL (12.0-16.0)
[2018-09-08] MEDS ORDERED: PROTONIX IV SCH (20:20)
[2018-09-08] MEDS: DEPAKOTE SPRINKLE PO SCH (20:25)
[2018-09-08] MEDS: MELATONIN PO SCH (20:26)
[2018-09-08] MEDS: NORCO-10 PO PRN ×2 (22:12→22:20)
--- NOTE | 2018-09-09 00:42 | PROGRESS NOTE ---
DATE: 09/08/2018 SUBJECTIVE: The patient is currently on BiPAP, she complains of shortness of breath. OBJECTIVE: Vital Signs: Temperature 98.4 degrees, blood pressure 147/66, heart rate 74, respirations 20, O2 saturation is 100% on BiPAP, urine output 425. General: This is a chronically ill-appearing elderly female lying in bed in no acute distress. Head: Normocephalic, atraumatic. Heart: S1, S2 normal. Lungs: Coarse breath sounds bilaterally. Abdomen: Positive bowel sounds, soft, nontender, nondistended. Extremities: Trace pedal edema, no cyanosis, no calf tenderness. Neuro: The patient is awake and alert. She is able to move all 4 extremities. LABS: White blood cell count 12, hemoglobin 7.7, hematocrit 25, platelets 249, 000, sodium 134, potassium 5.4, chloride 94, CO2 28, BUN 46, creatinine 2.5, glucose 140, proBNP 17,776, albumin 3.2. ASSESSMENT AND PLAN: 1. Acute hypoxemic and hypercapnic respiratory failure. The patient is currently on BiPAP. Further management as per the elementary summer school teacher. 2. Acute pulmonary edema. Management as per the elementary summer school teacher. 3. Urinary tract infection. Continue with antibiotic therapy. 4. Acute kidney injury on chronic kidney disease improved. Nephrology is following. 5. Chronic obstructive pulmonary disease. Continue with bronchodilator therapy. 6. Shantal esophagitis. Continue on Diflucan. 7. Gastrointestinal bleed, will continue to monitor the hemoglobin and hematocrit closely. 8. Anemia. The hemoglobin and hematocrit have dropped again will transfuse 1 unit of packed red blood cells today. 9. Hyperkalemia. Will repeat the sodium this afternoon. 10. Severe protein calorie malnutrition. The patient is n.p.o. at this time due to aspiration risk. Continue on Clinimix as ordered. 11. Gastrointestinal prophylaxis, continue on Protonix. 12. Deep vein thrombosis prophylaxis, continue with SCDs. cc: Bebe Desir MD MTDD
[2018-09-09] MEDS: CARDIZEM PO SCH ×4 (01:08→20:46)
[2018-09-09 02:03] LABS: HEMATOCRIT 33.2 % (37.0-47.0); HEMOGLOBIN 10.3 g/dL (12.0-16.0)
--- NOTE | 2018-09-09 03:35 | PULMONOLOGY PROGRESS NOTE ---
DATE: 09/08/2018 SUBJECTIVE: Patient is on BiPAP. Her work of breathing has significantly decreased. She is anxious to get the BiPAP taken off. OBJECTIVE: Vital Signs: BP 131/39, heart rate 72, respiratory rate 20, oxygen saturation 100%. HEENT: Pupils are equal and reactive. Oropharynx appears dry but clear. Neck: Supple. Chest: Reveals crackles in both lung bases. Cardiac Examination: S1-S2. Abdomen: Soft. Extremities: Without edema. Laboratories: Chest x-ray reveals better visualization of the left apex but otherwise no significant change. Sodium 134, potassium 5.4, chloride 94, bicarbonate 28, BUN 46, creatinine 2.5. IMPRESSION: A 78-year-old with severe kyphosis, chronic ventilatory insufficiency, acute hypoxemic respiratory failure, acute renal failure, gastrointestinal bleeding status post esophagogastroduodenoscopy. Clinically, she appears to be marginally improved with the BiPAP overnight. RECOMMENDATIONS: 1. Continue NPO with ice chips only. 2. Continue Clinimix for nutrition support. 3. Continue to follow the fluid status. If she has worsening in her status, we will reinitiate Lasix but would like to delay Lasix today if possible. 4. Continue BiPAP for hypercapnic and hypoxemic respiratory failure. 5. Swallowing study on Monday morning. 6. Overall prognosis is guarded as outlined in consultation yesterday. cc: Aravind Marie MD
[2018-09-09] MEDS: DUONEB (A & A) INH SCH ×6 (03:47→23:51)
[2018-09-09] MEDS: CLINIMIX E 4.25%-5% SOLUTION 1,000 ML IV SCH ×3 (04:03→20:46)
[2018-09-09] MEDS: NORCO-10 PO PRN ×3 (04:18→20:45)
[2018-09-09] MEDS: MAXIPIME 1 GM in NS 50 ML IV SCH ×3 (04:19→18:06)
--- NOTE | 2018-09-09 04:49 | NEPHROLOGY PROGRESS NOTE ---
DATE: 09/08/2018 SUBJECTIVE: The patient is resting in bed. She is awake today. She is on a BiPAP. OBJECTIVE: Vital Signs: Temperature 99.5 degrees, pulse 72, respiratory rate 20, blood pressure 134/37. Intake 960 mL, output 425 mL. General: This is an elderly female resting in bed, in no acute distress. HEENT: Normocephalic, atraumatic. RADHA. Oral mucosa is dry through the BiPAP mask. Neck: Supple. No JVD. Cardiovascular: Regular rate and regular rhythm. Controlled rate. Pulmonary: She has rhonchi bilaterally. Remains on BiPAP. Abdomen: Soft. Positive bowel sounds. : Not inspected. Extremities: No clubbing or cyanosis. Trace edema. Integumentary: Skin is warm and dry. Lab Data: WBC of 12, hemoglobin 7.7. Sodium 134, potassium 5.4, CO2 28, creatinine 2.5 (2.8). ASSESSMENT AND PLAN: Acute on chronic kidney disease. She has had some modest improvement in her renal function overnight. Her diuretics have been held per pulmonology. Urine output unclear as the patient appears that she is voiding at this time and incontinent. From a renal perspective, we have nothing further to add. We will continue to monitor her closely. Dictated by CHERELLE Seay for Phi Lerma MD cc: Phi Lerma MD
[2018-09-09 05:16] LABS: ALLEN TEST YES; BE 5.8 mmoll (-3.0-3.0); BLOOD TYPE ARTERIAL; HCO3-(ACT) 29.5 mmoll (20.0-26.0); METHB 1.3 % (0.0-1.5); O2(CT) 12.3 mL/dL (15.0-23.0); PO2(98.6) 108 mmHg (60-100); SAMPLE BLOOD; SAO2 98.8 % (95.0-100.0); pH(98.6) 7.38 (7.35-7.45)
[2018-09-09 05:17] LABS: PCO2(98.6) 54 mmHg (35-45)
[2018-09-09 05:18] LABS: MODALITY BI PAP
[2018-09-09 05:57] LABS: BASO# 0.02 X1000 (0.0-0.2); BASO% 0.2 % (0.0-0.8); EOS# 0.08 X1000 (0.0-0.7); EOS% 0.9 % (0.0-10.0); HEMATOCRIT 30.8 % (37.0-47.0); HEMOGLOBIN 9.5 g/dL (12.0-16.0); IMM GRAN# 0.08 X1000 (0.0-0.04); IMM GRAN% 0.9 % (0.0-0.5); LYMPH# 1.08 X1000 (1.2-3.4); LYMPH% 12.3 % (20.5-51.1); MCH 29.9 PG (27-31); MCHC 30.8 g/dL (33-37); MCV 96.9 FL (81-99); MONO# 1.49 X1000 (0.11-0.59); MONO% 16.9 % (1.7-9.3); MPV 8.8 FL (7.4-10.4); NEUT# 6.06 X1000 (1.4-6.5); NEUT% 68.8 % (42.2-75.2); PLT 262 X1000 (130-400); RBC 3.18 XMIL (4.2-5.4); RDW 15.3 % (11.5-14.5); WBC 8.81 X1000 (4.8-10.8)
[2018-09-09 06:21] LABS: ALBUMIN 2.7 g/dL (3.5-5.0); CALCIUM 8.8 mg/dL (8.8-10.2); CREATININE 1.5 mg/dL (0.5-0.9); PHOSPHORUS 3.8 mg/dL (2.7-4.5); POTASSIUM 5.4 mmol/L (3.5-5.1)
--- NOTE | 2018-09-09 06:45 | GASTROENTEROLOGY PROGRESS NOTE ---
DATE: 09/08/2018 SUBJECTIVE: The patient is resting in bed. She is on a full face BiPAP. Family was at the bedside. The patient was sleepy. I spoke to the patient's family at bedside. PHYSICAL EXAMINATION: Vital Signs: Temperature 98.1 degrees, pulse rate of 71, respiratory rate 20, blood pressure 150/53, saturating 99% on BiPAP. General Appearance: Moderately built, moderately nourished, lying in bed, in no acute distress. HEENT: Positive pallor. No icterus. BiPAP mask on the face. Neck: Supple. Abdomen: Soft, nontender, nondistended. No guarding. Extremities: No cyanosis, clubbing. Lower extremity edema noted. Neurologic: She was sleepy during the time of the examination. LABORATORY DATA: Hemoglobin and hematocrit are 7.7 and 25.1, white count of 12.01, platelet count of 249,000. ABG showing pH 7.37, pCO2 56, PO2 of 75. This is on BiPAP at 45% FiO2. Sodium 132, potassium 5.4, chloride 94, bicarb 20, anion gap 12, BUN of 46, creatinine 2.5, glucose of 140, calcium is 9.3, phosphorus 4.1. ProBNP is 17,776. Albumin of 3.2. Urinalysis positive for UTI. Urine culture is showing Staphylococcus epidermidis, sensitive to gentamicin, nitrofurantoin, and vancomycin Blood cultures x2 were done on 09/07/2018, which are currently pending Chest x-ray done today showed worsening ill-defined perihilar infiltrates compatible with pulmonary edema. IMPRESSION AND PLAN: 1. Acute hypoxic and hypercarbic respiratory failure, a combination of pulmonary edema and chronic obstructive pulmonary disease. She is on a BiPAP mask and she is on diuretic therapy. Pulmonary team is following the patient. 2. Urinary tract infection, showing Staphylococcus epidermidis, multidrug resistant. She is on Zyvox. 3. Acute kidney injury on chronic kidney disease. She is being followed by the nephrology team. 4. Chronic obstructive pulmonary disease. She is on bronchodilator therapy. 5. Shantal esophagitis. She is on intravenous Diflucan. 6. Gastrointestinal bleed. Admitted with anemia. She had an esophagogastroduodenoscopy done yesterday which showed evidence of Shantal esophagitis. We will keep her on proton pump inhibitors twice a day. 7. Anemia. Continue to watch for now. Transfuse as needed. She is receiving another unit of blood transfused today. 8. Deep venous thrombosis prophylaxis with sequential compression devices. 9. Malnutrition. She is on Clinimix at 75 mL per hour. 10. The above plan was discussed with the patient's family at bedside and all questions were answered. Please call us with any further questions. cc: MD Harjeet Crowe MD
--- NOTE | 2018-09-09 07:44 | Diag Imaging Result Doc PS360 ---
CHEST-PORTABLE - 09/09/2018 INDICATION: abnormal exam COMPARISON: 09/08/2018 FINDINGS: Stable cardiomegaly and significant pulmonary vascular congestion. There appears to be mild worsening left perihilar infiltrate suggesting pulmonary edema. There is worsening hazy infiltrate or atelectasis at the lower lobes bilaterally. IMPRESSION: Worsening infiltrates/pulmonary edema. Electronically signed by Julio Brown 09/09/2018 7:42 AM
[2018-09-09] MEDS ORDERED: MUCOMYST 20% INH SCH (08:30)
[2018-09-09] MEDS: ICAR-C PO SCH ×2 (08:44→20:46)
[2018-09-09] MEDS: VITAMIN D PO SCH (08:44)
[2018-09-09] MEDS: CITRACAL + D PO SCH (08:44)
[2018-09-09] MEDS: PROTONIX IV SCH ×2 (08:44→20:45)
[2018-09-09] MEDS: ZYVOX 600 MG/D5W 600 MG/300 ML IVPB IV SCH ×2 (08:44→20:44)
[2018-09-09] MEDS: CUBICIN 500 MG in NS 100 ML IV SCH (13:30)
[2018-09-09] MEDS: NS 500 ML IV SCH (14:18)
--- NOTE | 2018-09-09 14:18 | PROGRESS NOTE ---
DATE: 09/09/2018 SUBJECTIVE: The patient is sitting up in bed. No acute events noted overnight. OBJECTIVE: Vital Signs: Temperature 98.5, blood pressure 157/40, heart rate 75, respirations 17, O2 sats 100% on 5 L nasal cannula. Urine output 925. Intake 1.8 L. General: This is a chronically ill-appearing elderly female lying in bed in no acute distress. HEENT: Head normocephalic, atraumatic. Heart: S1, S2 normal. Regular rate and rhythm. Lungs: Coarse breath sounds with rhonchi bilaterally. Abdomen: Positive bowel sounds. Soft, nontender, nondistended. Extremities: No edema, no cyanosis. Neurologic: The patient is awake and alert. She is hard of hearing. LABS: White blood cell count 8.8, hemoglobin 10, hematocrit 33, platelets 262,000. Sodium 132, potassium 5.4, chloride 94, CO2 28, BUN 47, creatinine 1.5, glucose 134, albumin 2.7. Chest x-ray: worsening infiltrates versus pulmonary edema. ASSESSMENT AND PLAN: 1. Acute hypoxemic and hypercapnic respiratory failure. Unchanged. The patient remains on 5 L nasal cannula. Further management as per the car tracer. 2. Acute pulmonary edema. Unchanged. 3. Urinary tract infection. The urine culture is growing Staphylococcus epidermidis. IV antibiotic management as per Dr. Byrne. 4. Possible pneumonia. Continue with antibiotics. 5. Acute kidney injury on chronic kidney disease. Improved. 6. Shantal esophagitis. Continue on Diflucan. 7. COPD. Continue with bronchodilator therapy and supplemental oxygen. 8. Anemia. The patient received 1 unit of packed red blood cells yesterday. We will continue to monitor the hemoglobin and hematocrit closely. GI is following. 9. Severe protein calorie malnutrition. The patient is on Clinimix. 10. Hyperkalemia. This may be secondary to the Clinimix that the patient is receiving. We will continue to monitor this closely. 11. Atrial fibrillation. Continue on Cardizem. 12. GI prophylaxis. Continue on Protonix. 13. DVT prophylaxis. The patient is on SCDs. cc: Bebe Desir MD
[2018-09-09] MEDS ORDERED: KAYEXALATE PO ONE (15:10)
[2018-09-09] MEDS: DIFLUCAN 200 MG/NS 200 MG/100 ML IVPB IV SCH (15:22)
--- NOTE | 2018-09-09 15:22 | INFECTIOUS DISEASE CONSULT REP ---
DATE: 09/09/2018 CONCLUSION: The patient has a Staph epidermidis urinary tract infection. It is hard for me to know for sure if she is having symptoms from it. She did have fever and on her urinalysis she did have white blood cells, which would indicate that the urinary tract infection is symptomatic. RECOMMENDATIONS: I am putting the patient on daptomycin. I am not going to use vancomycin because the patient's creatinine already is elevated and the patient's daughter says that her mother has decreased hearing and both of these factors, the decreased renal function and decreased hearing, would be reasons not to give vancomycin. DISCUSSION: The patient was unable provide any information. Her daughter supplied most all of it. The patient was admitted to the hospital. She had fallen in the long term. She was felt to have a GI bleed because she was anemic. She also was having dyspnea and altered mental status and she also was noted to have chest congestion. Her urine did grow a Staph epidermidis which is resistant to oxacillin. Repeat urine culture is growing a gram-positive coccus which may well be Staph epidermidis also. The patient's CBC shows a white count of 8810, hemoglobin 10.3, and platelet count 262,000. Creatinine is 1.5. GFR is 33. Blood gases show a pH of 7.38, a PO2 of 108 and a pCO2 of 54. The chest x-ray shows cardiomegaly with worsening pulmonary edema and possible pneumonia. Renal ultrasound showed mild right renal atrophy. PAST MEDICAL HISTORY/REVIEW OF SYSTEMS: This was unable to be obtained from the patient. I did ask the patient's daughter about her mother as regarding review of systems. She told me that as far as hearing and seeing goes, her mother has decreased hearing and seeing. She can only walk with aid of a walker or if somebody walks with her and holds her up. She had lost her appetite. She had leg edema. She was not vomiting. EXTRUSION LINE OPERATOR HISTORY: Patient is a 4, para 4, AB 0. She has had hysterectomy and bilateral salpingo-oophorectomy. PREVIOUS HOSPITALIZATIONS AND OPERATIONS: She has had labor and deliveries, a hysterectomy, bilateral salpingo-oophorectomy. 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 The patient has been in the hospital also for a stroke. She has had a cholecystectomy and appendectomy. She has had breast reduction. She fell and fractured her right femur and she has had a metal plate placed for that. She has been admitted before with respiratory failure and also with congestive heart failure. MEDICAL DISEASES: Positive for congestive heart failure, respiratory failure and atrial fibrillation, gastroesophageal reflux disease. INFECTIOUS DISEASE HISTORY: Positive for UTI. FAMILY HISTORY: Positive for diabetes mellitus, hypertension, myocardial infarction, congestive heart failure and cancer. SOCIAL HISTORY: The patient lives in the long term. ALLERGIES: She has an allergy to IV contrast dye, latex and natural rubber. MEDICATIONS: Taken at the long term include Norvasc, Eliquis, Catapres, Depakote, Lasix, hydralazine, hydrocodone, ipratropium/albuterol inhaler, Ativan, losartan, magnesium, melatonin, omeprazole, Zofran and Restoril. PHYSICAL EXAMINATION: Vital Signs: Temperature is 99.2 degrees, pulse 67, respirations 17, blood pressure 151/44. The patient weighs 172 pounds. General: This is an obese, elderly female. She seems to be having difficulty breathing. She has audible congestion sounds from her lungs. Head/eyes/ears/nose/throat: She has decreased hearing. I was unable to test her vision. Neck: No meningismus. Lungs: Bilateral rhonchi. Cardiovascular: Heart rate is irregular. Abdomen: Soft and nontender. Extremities: Patient has amputation of the toes on the right foot. Neurologic: The patient is lethargic. She did follow my request to move her extremities. There is no tremor. Integument: No rash noted. Thank you for the consult. cc: Sawyer Byrne MD [facility]
--- NOTE | 2018-09-09 17:31 | PULMONOLOGY PROGRESS NOTE ---
DATE: 09/09/2018 SUBJECTIVE: The patient is awake, alert, and conversant. She has mild work of breathing, but appears less distressed than yesterday. OBJECTIVE: Vital Signs: Intake 1898, output 925. BP 157/40, heart rate 75, respiratory rate 17, oxygen saturation 100% on 5 L nasal cannula. HEENT: Pupils are equal and reactive. Oropharynx is clear. Neck: Supple. Chest: Reveals faint wheezing bilaterally. Cardiac: S1-S2. Abdomen: Soft. Extremities: Reveal trace pretibial edema. LABORATORIES: Chest x-ray reveals cardiomegaly and pulmonary vascular congestion. Mild infiltrate at the left mid lung zone. White blood count 8.81, hemoglobin 9.5, platelet count 262,000. Chemistry: Sodium 132, potassium 5.4, chloride 94, bicarbonate 28, BUN 47, creatinine 1.5, glucose 134, albumin 2.7. IMPRESSION: A 78-year-old with: 1. Severe kyphosis. 2. Chronic ventilatory insufficiency. 3. Acute hypoxemic respiratory failure. 4. Acute renal failure. 5. Gastroesophageal bleed status post esophagogastroduodenoscopy. Her oxygenation remains marginal. RECOMMENDATIONS: 1. Continue ice chips and medications by mouth only. 2. Continue nutrition support with Clinimix. 3. Will balance intake and output if possible. Renal function is improving. 4. Cycle BiPAP at bedtime and p.r.n. 5. Swallowing study scheduled for tomorrow morning. 6. Overall prognosis is guarded as outlined in the initial consultation. cc: Aravind Marie MD
--- NOTE | 2018-09-09 18:08 | GASTROENTEROLOGY PROGRESS NOTE ---
DATE: 09/09/2018 SUBJECTIVE: The patient is resting in bed. Her family present at bedside. The patient was awake today. Her breathing is improving. She is on a breathing treatment. She is off the BiPAP. No documented evidence of nausea/vomiting or passing blood in the stools. OBJECTIVE: Vital signs: Temperature of 98.5 degrees, pulse rate of 75, respiratory rate of 17, blood pressure 152/40, saturating 100% on 5 L nasal cannula. General Appearance : Moderately built, well nourished, lying in bed, in no acute distress. HEENT: Pale conjunctivae. No icterus. Neck: Supple. Abdomen: Soft, nontender, nondistended. No guarding. Extremities: Mild lower extremity edema noted. No cyanosis or clubbing. Neurologic: She is awake, alert, and answers simple questions. DIAGNOSTIC STUDIES: Hemoglobin is 10.3, hematocrit 33.2, white count of 8.8, platelet count 262,000. Sodium of 132, potassium 5.4, chloride 94, bicarbonate 28, anion gap 10, BUN of 47, creatinine of 1.5, glucose of 134, calcium is 8.8. Phosphorus 3.8. Magnesium 2.0. Albumin of 2.7. Her ABG showing pH of 7.38, pCO2 of 51, PO2 of 108; this is on BiPAP. Urinalysis positive for UTI. IMPRESSION AND PLAN: 1. Acute hypoxic and hypercapnic respiratory failure. It is improving. She is now on nasal cannula. 2. Urinary tract infection (UTI). Urine culture growing Staphylococcus epidermidis. She is on treatment with Dr. Byrne. 3. Shantal esophagitis. She is on Diflucan. 4. Chronic obstructive pulmonary disease (COPD). She is on supplemental oxygen and bronchodilator therapy. 5. Anemia. Her hematocrit is improved. She has received 2 units of blood transfusion since admission. 6. Protein calorie malnutrition. She is on Clinimix. She is still n.p.o. She is scheduled for swallow evaluation tomorrow in order to decide about oral feeding. 7. Atrial fibrillation. She is on Cardizem. 8. Gastrointestinal (GI) prophylaxis. PPIs. 9. Deep vein thrombosis (DVT) prophylaxis. SCDs. 10. Small hiatal hernia. She will continue to follow gastroesophageal reflux life changes when start orally. She will avoid excessive tea, coffee, soda, tomatoes, onions, spicy foods. We will follow on the biopsies from the esophagus, which were done on EGD on 02/2019. The above plan was discussed with the patient and family at bedside, and all questions answered. cc: MD Harjeet Crowe MD [facility]
[2018-09-09] MEDS: RESTORIL PO SCH (20:46)
[2018-09-09] MEDS: MELATONIN PO SCH (20:46)
[2018-09-09] MEDS: DEPAKOTE SPRINKLE PO SCH (20:46)
[2018-09-09] MEDS ORDERED: LASIX IV ONE (21:00)
[2018-09-10] MEDS: CARDIZEM PO SCH ×4 (01:03→20:54)
[2018-09-10] MEDS: NORCO-10 PO PRN (01:39)
[2018-09-10] MEDS: DUONEB (A & A) INH SCH ×6 (03:27→23:17)
[2018-09-10] MEDS: CLINIMIX E 4.25%-5% SOLUTION 1,000 ML IV SCH (03:38)
[2018-09-10] MEDS: MAXIPIME 1 GM in NS 50 ML IV SCH (05:03)
[2018-09-10 05:28] LABS: BASO# 0.01 X1000 (0.0-0.2); BASO% 0.1 % (0.0-0.8); EOS# 0.16 X1000 (0.0-0.7); EOS% 1.8 % (0.0-10.0); HEMATOCRIT 33.9 % (37.0-47.0); HEMOGLOBIN 10.2 g/dL (12.0-16.0); IMM GRAN# 0.09 X1000 (0.0-0.04); LYMPH# 1.19 X1000 (1.2-3.4); LYMPH% 13.2 % (20.5-51.1); MCH 29.5 PG (27-31); MCHC 30.1 g/dL (33-37); MONO# 1.38 X1000 (0.11-0.59); MONO% 15.3 % (1.7-9.3); MPV 8.7 FL (7.4-10.4); NEUT# 6.19 X1000 (1.4-6.5); NEUT% 68.6 % (42.2-75.2); PLT 291 X1000 (130-400); RBC 3.46 XMIL (4.2-5.4); WBC 9.02 X1000 (4.8-10.8)
[2018-09-10 05:40] LABS: ALBUMIN 2.8 g/dL (3.5-5.0); CALCIUM 9.7 mg/dL (8.8-10.2); CREATININE 1.2 mg/dL (0.5-0.9); PHOSPHORUS 3.2 mg/dL (2.7-4.5)
--- NOTE | 2018-09-10 06:45 | INFECTIOUS DISEASE PROGRESS NO ---
DATE: 09/10/2018 PRESENT ILLNESS: The patient has a Staphylococcus epidermidis urinary tract infection. She also has a possible pneumonia. MEDICATIONS: The patient has been on cefepime and Zyvox now for 3 days and daptomycin for 1 day. PHYSICAL EXAMINATION: Vital Signs: Temperature is 98.6 degrees, pulse 72, respirations 24, blood pressure 156/60. General: This is an ill-appearing elderly female. She is in no acute distress, however. Head/Eyes/Ears/Nose/Throat: She has decreased hearing. She can see near objects. There were no white patches on her tongue. Neck: No meningismus. Lungs: There were bilateral rhonchi. Cardiovascular: Heart rate is irregular. Abdomen: Soft and nontender. Extremities: Legs are edematous, but not erythematous. Neurologic: The patient is awake. She has decreased hearing. She can move her extremities, but she is very weak. There is no tremor. LABORATORY AND X-RAY: CBC today shows a white count of 9020, hemoglobin 10.2, and platelet count 291,000. Creatinine is 1.2, GFR is 43. The patient's urine grew Staphylococcus epidermidis. The repeat urine is growing gram-positive cocci. There is not a chest x-ray for today as of yet. ASSESSMENT AND PLAN: The patient has a urinary tract infection and possible pneumonia. My plan would be to continue her current antibiotics consisting of cefepime and Zyvox, for which she has been on 3 days, and daptomycin, for which she has been on 1 day. COMORBIDITIES: She is elderly. She has congestive heart failure, respiratory failure, gastroesophageal reflux disease, and atrial fibrillation. cc: Sawyer Byrne MD
--- NOTE | 2018-09-10 07:01 | Diag Imaging Result Doc PS360 ---
EXAM: CHEST-PORTABLE HISTORY: dyspnea TECHNIQUE: Portable chest single view COMPARISON: 09/08/2018 FINDINGS: Poor inspiratory effort. The heart is enlarged. There are bilateral pleural effusions similar to the prior exam. There is vascular distention with basilar atelectasis. IMPRESSION: No interval improvement. Electronically signed by Stone Anderson 09/10/2018 6:59 AM
[2018-09-10] MEDS: CITRACAL + D PO SCH (08:53)
[2018-09-10] MEDS: VITAMIN D PO SCH (08:53)
[2018-09-10] MEDS: ICAR-C PO SCH ×2 (08:53→20:54)
[2018-09-10] MEDS: ZYVOX 600 MG/D5W 600 MG/300 ML IVPB IV SCH ×2 (08:53→20:54)
[2018-09-10] MEDS: SODIUM CHLORIDE 0.9% INJ SCH (08:54)
[2018-09-10] MEDS: PROTONIX IV SCH ×2 (08:54→20:54)
[2018-09-10] MEDS: MIRALAX PO SCH (09:43)
--- NOTE | 2018-09-10 10:09 | NEPHROLOGY PROGRESS NOTE ---
DATE: 09/10/2018 SUBJECTIVE: Patient is sitting up in bed. She is alert, talking, eating today. OBJECTIVE: Vital Signs: Temperature 98.6 degrees, pulse 72, respiratory rate 24, blood pressure 156/60. Intake 970 mL with output of 2.1 L via Gutierrez catheter. General: This is an elderly female, sitting up in bed. She is awake and alert. She is in no acute distress. HEENT: Normocephalic, atraumatic. RADHA. Oral mucosa dry. Neck: Supple. No JVD. Cardiovascular: Regular rate and rhythm. Pulmonary: She has some decreased breath sounds but no wheezes or rales. Abdomen: Soft, with positive bowel sounds. : Not inspected. Catheter noted. Extremities: No clubbing, cyanosis. She has trace edema. Integumentary: Skin is warm and dry. Lab Data: WBC of 9.0, hemoglobin 10.4. Sodium 129, potassium 5.0, CO2 29, creatinine 1.2. ASSESSMENT AND PLAN: 1. Acute kidney injury, resolved. 2. Electrolytes. She has some mild hyponatremia. She has actually been at this level since admission without issue and a review of her labs indicates that at least since the first of the year, she has been hovering in the mid 120s. It is noted that she is on Depakote as one of her medications. Hyponatremia is one of the side effects. We will make no changes. Again, at this time, we will sign off. If we can be of further assistance, please do not hesitate to contact us. Dictated by CHERELLE Seay for Phi Lerma MD Face to face encounter, data reviewed, discussed with Rachel Chu on 09/10/18. I agree with the above assessment and plan of care. cc: Phi Lerma MD [facility]
--- NOTE | 2018-09-10 11:25 | GASTROENTEROLOGY PROGRESS NOTE ---
DATE: 09/10/2018 SUBJECTIVE: Patient is resting in bed. She is more awake. Her oxygen requirement is getting better. She is on 5 L nasal cannula. Her daughter is present at bedside. The patient is n.p.o. today. She is scheduled for swallow evaluation today before starting orally. No signs of active gastrointestinal bleeding. OBJECTIVE: Vital Signs: Temperature 98.7 degrees, pulse of 124, respiratory rate of 19, blood pressure 111/58, saturating 94% on 5 L nasal cannula oxygen. General Appearance: Moderately built, moderately nourished, lying in bed, in no acute distress. ENT: Mild pallor. No icterus. Neck: The neck is supple. Abdomen: Soft, nontender, nondistended. No guarding. Extremities: No cyanosis, clubbing. She has bilateral lower extremity edema. Neurologic: She is awake, alert. Answers questions. LABORATORY: Hemoglobin and hematocrit is 10.2 and 33.9, white count of 9.02, platelet count of 291,000. Sodium 129, potassium 5, chloride 93, bicarb 29, anion gap 7, BUN of 40, creatinine 1.2, glucose of 129, calcium is 9.7, phosphorus 3.2, albumin of 2.8. Sputum shows Gram positive cocci, and urine culture also showing Gram positive cocci. Blood culture x2 negative after 48 hours on 09/07/2018. IMPRESSION AND PLAN: 1. Urinary tract infection. She is on cefepime and Zyvox per Dr. Byrne. 2. Possible pneumonia. She is again on antibiotics with cefepime and Zyvox and daptomycin per Dr. Byrne. 3. Congestive heart failure. Respiratory failure is improving. 4. Atrial fibrillation. This is being managed by the Primary Care Team and Cardiology Team. 5. Shantal esophagitis. She is on fluconazole 100 mg IV once daily. 6. Chronic obstructive pulmonary disease. She is on supplemental oxygen and bronchodilator therapy. 7. Anemia. Hematocrit is improved. Continue to watch for now. 8. Protein calorie malnutrition. Clinimix. She is n.p.o. If she passes swallow test, she can start orally. 9. Gastrointestinal prophylaxis with PPI. Deep venous thrombosis prophylaxis with sequential compression devices. 10. Small hiatal hernia seen on EGD. She will continue follow gastroesophageal reflux life changes. 11. The above plans discussed with the patient and family at bedside and all questions answered. Please call us with any further questions. cc: MD Harjeet Crowe MD
--- NOTE | 2018-09-10 12:15 | INFECTIOUS DISEASE PROGRESS NO ---
DATE: 09/10/2018 ADDENDUM: The patient's sputum is growing methicillin-resistant Staphylococcus aureus. She already is on Zyvox which should cover that organism. The patient also was on daptomycin because of her Staphylococcus epidermidis urinary tract infection. I am going to discontinue cefepime. cc: Sawyer Byrne MD
--- NOTE | 2018-09-10 12:47 | Diag Imaging Result Doc PS360 ---
EXAM: BA SWALLOW W/VIDEO SPEECH THER INDICATION: aspiration TECHNIQUE: COMPARISON: None. FINDINGS: There is a thin anterior filling defect involving the upper esophagus consistent with a small esophageal web. No aspiration or penetration is appreciated. No significant cricopharyngeal hypertrophy is appreciated. Limited views of the distal esophagus reveal tertiary contractions suggesting dysmotility. IMPRESSION: Small upper esophageal web and tertiary contractions involving the distal esophagus suggesting dysmotility. Please see speech pathology report for full details. Electronically signed by Isak Vazquez 09/10/2018 12:44 PM
[2018-09-10] MEDS: CUBICIN 500 MG in NS 100 ML IV SCH (12:57)
--- NOTE | 2018-09-10 13:54 | PROGRESS NOTE ---
DATE: 09/10/2018 SUBJECTIVE: The patient is sitting up in bed resting comfortably. No acute events noted overnight. OBJECTIVE: Vital Signs: Temperature 98.6 degrees, blood pressure 154/44, heart rate 83, respirations 18, O2 saturation 100% on 5 L nasal cannula. Urine output 2.1 L. Intake 970. General: This is a chronically ill-appearing female sitting up in bed in no acute distress. Head: Normocephalic, atraumatic. Heart: S1, S2 normal. Lungs: Coarse breath sounds bilaterally with crackles and rhonchi. Abdomen: Positive bowel sounds. Soft, obese, nontender, nondistended. Extremities: No edema, no cyanosis. Neurologic: The patient is awake and oriented to person and place. She is hard of hearing. LABS: White blood cell count 9, hemoglobin 10, hematocrit 33, platelets 291,000. Sodium 129, potassium 5, chloride 93, CO2 29, BUN 48, creatinine 1.2, glucose 129. Albumin 2.8. ASSESSMENT AND PLAN: 1. Acute hypoxemic and hypercapnic respiratory failure. The patient remains on 5 L nasal cannula as well as BiPAP at night. We will continue to treat the underlying pneumonia. 2. Pneumonia secondary to methicillin-resistant Staphylococcus aureus. Continue with antibiotic therapy as directed by Dr. Byrne. 3. Urinary tract infection. The urine culture is growing gram-positive cocci. Continue on the current antibiotic coverage pending culture results. 4. Pulmonary edema. Unchanged. 5. Acute kidney injury on chronic kidney disease. Improved. 6. Shantal esophagitis. Continue on Diflucan. 7. Anemia. The patient's hemoglobin and hematocrit are stable. 8. Chronic obstructive pulmonary disease. Continue with bronchodilator therapy and supplemental oxygen. 9. Severe protein calorie malnutrition. The patient had a barium swallow today that revealed esophageal dysmotility. We will discuss this with Gastroenterology. 10. Atrial fibrillation. Continue on Cardizem. 11. Continue for gastrointestinal prophylaxis. Continue on Protonix. 12. Deep vein thrombosis prophylaxis. Continue with sequential compression devices. cc: Bebe Desir MD
[2018-09-10] MEDS: DIFLUCAN 200 MG/NS 200 MG/100 ML IVPB IV SCH (14:47)
--- NOTE | 2018-09-10 20:42 | PULMONOLOGY PROGRESS NOTE ---
DATE: 09/10/2018 SUBJECTIVE: Patient is awake, alert, and conversant. Her work of breathing has diminished. She is completing a barium swallow without evidence of aspiration. Sputum culture has returned consistent with methicillin-resistant Staphylococcus aureus. OBJECTIVE: Vital Signs: Blood pressure 154/44, heart rate 88, respiratory rate 18, oxygen saturation 100% on nasal cannula. HEENT: Pupils are equal and reactive. Oropharynx is clear. Neck: Supple. Chest: Reveals occasional rhonchi bilaterally. Cardiac: S1, S2. Abdomen: Soft. Extremities: Without edema. DIAGNOSTIC STUDIES: Modified barium swallow reveals no definite aspiration. Chest x-ray reveals kyphosis with bilateral effusions. White blood count 9.02, hemoglobin 10.1, platelet count 291,000. Sodium 129, potassium 5.0, chloride 93, bicarbonate 29, BUN 48, creatinine 2. IMPRESSION: A 78-year-old with: 1. Methicillin-resistant Staphylococcus aureus. 2. Chronic ventilatory insufficiency. 3. Acute hypoxemic respiratory failure. 4. Acute renal failure. 5. Bilateral pleural effusions. 6. Recent gastrointestinal bleed, requiring an EGD. PLAN: 1. Advance diet as tolerated. 2. Discontinue Clinimix. 3. Cycle oxygen and BiPAP as needed. 4. Treatment of infections/methicillin-resistant Staphylococcus aureus (MRSA) pneumonia per Dr. Sawyer Byrne. 5. Overall prognosis is guarded. cc: Aravind Marie MD
[2018-09-10] MEDS: RESTORIL PO SCH (20:54)
[2018-09-10] MEDS: DEPAKOTE SPRINKLE PO SCH (20:54)
[2018-09-10] MEDS: MELATONIN PO SCH (20:54)
[2018-09-11] MEDS: CARDIZEM PO SCH ×4 (02:19→19:50)
[2018-09-11] MEDS: DUONEB (A & A) INH SCH ×5 (03:34→19:25)
[2018-09-11 05:33] LABS: BASO# 0.03 X1000 (0.0-0.2); BASO% 0.4 % (0.0-0.8); EOS% 1.3 % (0.0-10.0); HEMATOCRIT 31.5 % (37.0-47.0); HEMOGLOBIN 9.6 g/dL (12.0-16.0); IMM GRAN# 0.07 X1000 (0.0-0.04); IMM GRAN% 0.9 % (0.0-0.5); LYMPH# 1.08 X1000 (1.2-3.4); LYMPH% 13.8 % (20.5-51.1); MCH 30.1 PG (27-31); MCHC 30.5 g/dL (33-37); MCV 98.7 FL (81-99); MONO# 1.49 X1000 (0.11-0.59); MPV 8.7 FL (7.4-10.4); NEUT# 5.08 X1000 (1.4-6.5); NEUT% 64.6 % (42.2-75.2); PLT 278 X1000 (130-400); RBC 3.19 XMIL (4.2-5.4); RDW 14.9 % (11.5-14.5); WBC 7.85 X1000 (4.8-10.8)
[2018-09-11 05:55] LABS: CALCIUM 9.3 mg/dL (8.8-10.2); POTASSIUM 4.3 mmol/L (3.5-5.1)
--- NOTE | 2018-09-11 07:34 | INFECTIOUS DISEASE PROGRESS NO ---
DATE: 09/11/2018 PRESENT ILLNESS: The patient has a Staph epidermidis urinary tract infection, a methicillin- resistant Staph aureus pneumonia, and Shantal esophagitis. MEDICATIONS: The patient is on Zyvox now for 4 days, daptomycin for 2 days and fluconazole 3 days. PHYSICAL EXAMINATION: Vital Signs: Temperature is 98.5, pulse 68, respirations 15, blood pressure 174/55. General: This is an ill-appearing, elderly female. She is in no acute distress. HEENT: She has decreased hearing. She does not have any white coating on her tongue. Neck: No meningismus. Lungs: Bilateral rhonchi. Cardiovascular: Heart rate is irregular. Abdomen: Soft and nontender. Extremities: Patient's legs are edematous, but not erythematous. Neurologic: The patient is lethargic, but arousable. She can move her extremities. There is no tremor. LAB AND X-RAY: Chest x-ray shows bilateral infiltrates. The patient's CBC shows a white count of 7850, hemoglobin 9.6, and platelet count 278,000. Patient's creatinine is 1. GFR is 53. ASSESSMENT AND PLAN: The patient has Staph epidermidis urinary tract infection for which she is receiving daptomycin. The patient has methicillin-resistant Staph aureus pulmonary infection for which she is on Zyvox and finally, the patient has possible Shantal esophagitis for which she is on fluconazole. COMORBIDITIES: The patient is elderly and she has congestive heart failure, gastroesophageal reflux disease and atrial fibrillation. cc: Sawyer Byrne MD
[2018-09-11] MEDS: ZYVOX 600 MG/D5W 600 MG/300 ML IVPB IV SCH ×3 (08:10→20:03)
[2018-09-11] MEDS: ICAR-C PO SCH ×3 (08:11→20:02)
[2018-09-11] MEDS: MIRALAX PO SCH (08:11)
[2018-09-11] MEDS: VITAMIN D PO SCH (08:11)
[2018-09-11] MEDS: PROTONIX IV SCH ×3 (08:11→20:02)
[2018-09-11] MEDS: CITRACAL + D PO SCH (08:11)
--- NOTE | 2018-09-11 10:07 | GASTROENTEROLOGY PROGRESS NOTE ---
DATE: 09/11/2018 SUBJECTIVE: No acute overnight events. Afebrile. Daughter at bedside reports that patient has not eaten much since initiating diet. She reports poor appetite. No N/V/F, CP, abdominal pain. OBJECTIVE: Vital Signs: Temperature 97.2, pulse 61, respiratory rate 18, blood pressure 173/54, O2 saturation 100% on 4 liters GEN: awake, alert, in mild distress coughing HEENT: anicteric, mucus in oropharynx NECK: no JVD, LAD PULM: coarse BS, no wheezing ABD: soft NT/ND, NABS, no rebound or guarding EXT: RLE with 1+ edema; none on left NEURO: moving all extremities symmetrically LABS: Na 130 CO2 31 Cr 1.0 WBC 7.8 Hgb 9.6 Plts 278K MBS 09/10 showed oropharyngeal dysphagia A/P: Ms. Lopez is a 78 year old woman with Afib, CVA x2, COPD, GERD hypertension, chronic back pain, osteoarthritis, HEFpEF who was admitted with anemia with rectal bleeding as well as CHF exacerbation. EGD on 09/07 revealed shantal esophagitis and small hiatal hernia. MBS yesterday showed oropharyngeal dysphagia. She is currently on regular diet. #Oropharyngeal dysphagia - will switch diet to mechanical soft and add ensure with meals - dysphagia precautions #Shantal esophagitis - esophageal biopsies pending - continue empiric fluconazole; continue for total of 21 days #UTI: currently on abx as per ID #PNA: on abx as per ID #LEOBARDO/Hyponatremia: improved; nephrology following #Anemia: hgb stable; no overt bleeding: continue PPI #Protein calorie malnutrition: on clinimix #CHF: managed by cardiology and primary Will follow with you. Please call with questions or concerns. [facility]
[2018-09-11] MEDS: CUBICIN 500 MG in NS 100 ML IV SCH (14:08)
[2018-09-11] MEDS: DIFLUCAN 200 MG/NS 200 MG/100 ML IVPB IV SCH (15:18)
--- NOTE | 2018-09-11 17:14 | PROGRESS NOTE ---
DATE: 09/11/2018 SUBJECTIVE: Patient is resting comfortable in bed. Has daughter present in the room. OBJECTIVE: Vital signs: Temperature is 99.8 degrees, pulse 68, respiratory rate 18, blood pressure 157/40, oxygen saturation is 97%. HEENT: Atraumatic, normocephalic. Cardiovascular: S1, S2. Respiratory: Has occasional rhonchi noted in the lung church. Abdomen: Full, nontender. No masses felt. Extremities: Has edema in both lower extremities, worse on the right than the left. The patient does have difficulty moving the right upper extremity. Central nervous system: The patient is awake. LABS: WBC is 7.85, hematocrit 31.5, with a platelet count of 278,000. Sodium 130, potassium 4.3, chloride 91, bicarb is 31, BUN is 36, creatinine 1.0. ASSESSMENT AND PLAN: 1. Acute respiratory failure. Continue oxygen via nasal cannula as well as BiPAP as needed. Pulmonary following. 2. Pneumonia. Continue antibiotics as recommended by ID. 3. Urinary tract infection. Continue antibiotics. 4. Pulmonary edema. Use diuretics as needed. 5. Acute kidney injury superimposed on chronic kidney disease. Follow up on renal function. 6. Anemia. Follow up on hemoglobin, hematocrit. Transfuse PRBCs if needed. 7. Chronic obstructive pulmonary disease. Continue nebulized bronchodilators. 8. Atrial fibrillation. Continue rate controlling agent. 9. Deep vein thrombosis prophylaxis. SCDs. 10. Gastrointestinal prophylaxis. PPI. cc: Fran Kennedy MD
[2018-09-11] MEDS: NORCO-10 PO PRN (17:41)
[2018-09-11] MEDS: MELATONIN PO SCH ×2 (19:49→20:02)
[2018-09-11] MEDS: RESTORIL PO SCH ×2 (19:49→20:02)
[2018-09-11] MEDS: DEPAKOTE SPRINKLE PO SCH ×2 (19:50→20:02)
--- NOTE | 2018-09-11 21:02 | PULMONOLOGY PROGRESS NOTE ---
DATE: 09/11/2018 SUBJECTIVE: The patient reports a poor appetite. OBJECTIVE: Vital Signs: She has been afebrile for the last 24 hours. Blood pressure 156/54, heart rate 60, respiratory rate 18, oxygen saturation 100% on 4 L per nasal cannula. HEENT: Pupils are equal. Oropharynx appears clear. Neck: Supple. Chest: Reveals kyphosis. She has bilateral rhonchi. She has decreased breath sounds. Cardiac: S1, S2. Abdomen: Soft. Extremities: Reveal trace to 1+ peripheral edema. LABORATORIES: Sodium 130, potassium 4.3, chloride 91, BUN 36, creatinine 1.0. White blood count 7.85, hemoglobin 9.6, platelet count 278,000. IMPRESSION: A 78-year-old with: 1. Methicillin-resistant Staph aureus pneumonia. 2. Chronic ventilatory insufficiency. 3. Acute hypoxemic respiratory failure. 4. Acute renal failure with improvement. 5. Bilateral pleural effusions. 6. Recent gastrointestinal bleeding with negative EGD. RECOMMENDATIONS: 1. Continue bronchial hygiene as tolerated. 2. Continue antibiotics per Dr. Sawyer Byrne. 3. Followup chest x-ray tomorrow. 4. Overall prognosis is guarded. cc: Aravind Marie MD
--- NOTE | 2018-09-11 21:20 | Diag Imaging Result Doc PS360 ---
EXAM: CT HEAD W/O CONTRAST 09/11/2018 HISTORY: r/o cva TECHNIQUE: This exam was performed using automated exposure control, adjustment of mA or kV according to patient size, and/or use of iterative reconstruction technique. COMMENT: There are patchy lucencies in the periventricular white matter bilaterally particularly in the left centrum semiovale. There is no evidence of mass effect bleed or abnormal extra-axial fluid collection. There is hyperostosis of the calvarium. There is an air-fluid level in the right maxillary sinus. This was not present at the time the previous study of 09/05/2018. There is opacification of most of the ethmoid air cells on both sides, some of the left frontal sinus and the left sphenoid sinus also not present at the time the previous study. IMPRESSION: Chronic ischemic microvascular changes. Sinusitis. Electronically signed by Isael Jade 09/11/2018 9:18 PM
--- NOTE | 2018-09-11 21:56 | Diag Imaging Result Doc PS360 ---
EXAM: ELBOW COMPLETE RIGHT 09/11/2018 HISTORY: r/o fracture TECHNIQUE: Right elbow three views COMMENT: There is no evidence of fracture or dislocation. There is generalized soft tissue swelling. No periosteal reaction or erosion or other acute bony abnormalities are present. IMPRESSION: No evidence of acute bony disease. Electronically signed by Isael Jade 09/11/2018 9:53 PM
--- NOTE | 2018-09-11 21:57 | Diag Imaging Result Doc PS360 ---
EXAM: SHOULDER-RIGHT 09/11/2018 HISTORY: r/o fracture TECHNIQUE: Right shoulder two views COMMENT: There is generalized osteopenia. There is no evidence of acute fracture or dislocation. IMPRESSION: No evidence of acute bony abnormality. Electronically signed by Isael Jade 09/11/2018 9:54 PM
[2018-09-12] MEDS: DUONEB (A & A) INH SCH ×7 (00:08→23:36)
[2018-09-12] MEDS: CARDIZEM PO SCH ×4 (01:05→20:34)
[2018-09-12 05:18] LABS: BASO# 0.04 X1000 (0.0-0.2); BASO% 0.6 % (0.0-0.8); EOS# 0.13 X1000 (0.0-0.7); EOS% 1.9 % (0.0-10.0); HEMATOCRIT 31.4 % (37.0-47.0); HEMOGLOBIN 9.5 g/dL (12.0-16.0); IMM GRAN# 0.06 X1000 (0.0-0.04); IMM GRAN% 0.9 % (0.0-0.5); LYMPH# 1.24 X1000 (1.2-3.4); LYMPH% 18.2 % (20.5-51.1); MCH 30.2 PG (27-31); MCHC 30.3 g/dL (33-37); MCV 99.7 FL (81-99); MONO# 1.23 X1000 (0.11-0.59); MPV 8.4 FL (7.4-10.4); NEUT# 4.12 X1000 (1.4-6.5); NEUT% 60.4 % (42.2-75.2); PLT 281 X1000 (130-400); RBC 3.15 XMIL (4.2-5.4); RDW 14.8 % (11.5-14.5); WBC 6.82 X1000 (4.8-10.8)
[2018-09-12 05:47] LABS: ALB/GLOB RATIO 0.8; ALBUMIN 2.8 g/dL (3.5-5.0); CALCIUM 8.6 mg/dL (8.8-10.2); CREATININE 0.9 mg/dL (0.5-0.9); POTASSIUM 4.3 mmol/L (3.5-5.1); TOTAL BILIRUBIN 0.41 mg/dL (0.20-1.00); TOTAL PROTEIN 6.1 g/dL (6.3-8.3)
--- NOTE | 2018-09-12 07:07 | INFECTIOUS DISEASE PROGRESS NO ---
DATE: 09/12/2018 PRESENT ILLNESS: The patient has methicillin-resistant Staphylococcus aureus pneumonia, Staphylococcus epidermidis urinary tract infection, and scooby esophagitis. MEDICATIONS: The patient is receiving Zyvox now for 5 days, daptomycin for 3 days, and fluconazole for 4 days. PHYSICAL EXAMINATION: Vital Signs: Temperature is 98.9 degrees, pulse 59, respirations 17, blood pressure 143/22. General: This is an ill-appearing, elderly female. She is in no acute distress. Head, Eyes, Ears, Nose, and Throat: She can see near objects. She has decreased hearing. She does not have any white patches on her tongue. Neck: No stiffness. Lungs: Bilateral rhonchi. Cardiovascular: Heart rate is irregular. Abdomen: Soft and nontender. Extremities: The patient has edematous legs but there is no erythema. Neurologic: The patient remains lethargic. She can move her extremities. There is no tremor. LAB AND X-RAY: The patient did not have any chest x-ray or chest CT scan yesterday. She did have a CT scan of the head which showed chronic ischemic microvascular changes and sinusitis. The patient's CBC shows a white count of 6820, hemoglobin 9.5, and platelet count 281,000. Creatinine is 0.9. GFR is 60. CK is 22. Sputum is growing methicillin-resistant Staphylococcus aureus and the urine grew enterococcus. ASSESSMENT AND PLAN: The patient has a urinary tract infection, a pulmonary infection, and possible scooby esophagitis. I plan to continue the patient's current antibiotics consisting of Zyvox, daptomycin, and fluconazole. COMORBIDITIES: The patient has congestive heart failure. She also has gastroesophageal reflux disease and atrial fibrillation. cc: Sawyer Byrne MD
--- NOTE | 2018-09-12 08:52 | GASTROENTEROLOGY PROGRESS NOTE ---
DATE: 09/12/2018 SUBJECTIVE: No acute overnight events. No N/V/F, CP. Continue nonproductive cough slightly improved. No SOB, abdominal pain. No melena or rectal bleeding. OBJECTIVE: Vital Signs: Temperature 98.9, heart rate 68, respiratory rate 15, blood pressure 143/62. O2 saturation 98% on 4 liters nasal cannula. GEN: awake, alert, NAD HEENT: anicteric, mucus in oropharynx NECK: no JVD, LAD PULM: coarse BS throughout with crackles at bases, no wheezing ABD: soft NT/ND, NABS, no rebound or guarding EXT: RLE with 2+ edema; none on left NEURO: moving all extremities symmetrically LABS: Na 135 K 4.3 CL 94 CO2 33 BUN 30 Cr 0.9 WBC 6.8 Hgb 9.5 Plts 281K A/P: Ms. Lopez is a 78 year old woman with Afib, CVA x2, COPD, GERD hypertension, chronic back pain, osteoarthritis, HEFpEF who was admitted with anemia with rectal bleeding as well as CHF exacerbation. EGD on 09/07 revealed shantal esophagitis and small hiatal hernia. MBS 09/10 showed oropharyngeal dysphagia. Her lungs sound wet today concerning for volume overload/pulmonary edema. She is now receiving IV lasix #Oropharyngeal dysphagia: cont mechanical soft and ensure with meals; dysphagia precautions #Acute respiratory distress/pulmonary edema: on lasix; pulmonary following, apprec recs #Shantal esophagitis: esophageal bx pending; continue empiric fluconazole #UTI: currently on abx as per ID #PNA: on abx as per ID #LEOBARDO/Hyponatremia: improved; nephrology following #Anemia: hgb stable; no overt bleeding: continue PPI #Protein calorie malnutrition: ensure with meals #CHF: managed by cardiology and primary Will follow with you. Please call with questions or concerns. [facility]
[2018-09-12] MEDS: ICAR-C PO SCH ×2 (09:05→20:34)
[2018-09-12] MEDS: VITAMIN D PO SCH (09:05)
[2018-09-12] MEDS: PROTONIX IV SCH ×2 (09:05→20:34)
[2018-09-12] MEDS: ZYVOX 600 MG/D5W 600 MG/300 ML IVPB IV SCH ×2 (09:05→20:41)
[2018-09-12] MEDS: MIRALAX PO SCH (09:05)
--- NOTE | 2018-09-12 09:10 | Diag Imaging Result Doc PS360 ---
EXAM: CHEST-1 VIEW 09/12/2018 HISTORY: pneumonia TECHNIQUE: AP portable at 0821 COMMENT: There are bilateral pleural effusions. There is cardiomegaly and increased pulmonary vascularity. There is interstitial pulmonary edema. Compared to 09/10/2018 there has been no appreciable change. IMPRESSION: Pulmonary edema and pleural effusions. The possibility of pneumonia cannot be excluded. Electronically signed by Isael Jade 09/12/2018 9:08 AM
--- NOTE | 2018-09-12 12:23 | PROGRESS NOTE ---
DATE: 09/12/2018 SUBJECTIVE: Patient is awake and alert. She has occasional rhonchi with cough. She has mild work of breathing. She has limited p.o. intake. OBJECTIVE: Vital Signs: Blood pressure 163/46, heart rate 63, respiratory rate 15, oxygen saturation 97% on 3 L per nasal cannula. HEENT: Pupils are equal. Oropharynx appears clear. Neck: Supple. Chest: Reveals diminished breath sounds in both lung bases with decreased air flow. Cardiac exam: S1-S2. Abdomen: Soft. Extremities: Reveal trace edema. LABORATORIES: Chest x-ray reveals kyphosis, bilateral pleural effusions, cardiomegaly and pulmonary vascular congestion with mild pulmonary edema. No change. IMPRESSION: A 78-year-old with: 1. Methicillin-resistant Staph aureus. 2. Acute hypoxemic respiratory failure. 3. Chronic ventilatory insufficiency. 4. Acute renal failure with improvement. 5. Bilateral pleural effusions. 6. Gastrointestinal bleeding with negative EGD. PLAN: 1. Continue bronchial hygiene. 2. Continue antibiotics per Infectious Disease. 3. Will attempt to mobilize some of her pleural effusions with diuretics today given improving creatinine function. 4. Overall prognosis is guarded. cc: Aravind Marie MD
[2018-09-12] MEDS ORDERED: SALINE LOCK IV FLUID XX ONE (12:52)
[2018-09-12] MEDS: LASIX IV SCH (13:13)
[2018-09-12] MEDS: CUBICIN 500 MG in NS 100 ML IV SCH (13:13)
--- NOTE | 2018-09-12 13:48 | PROGRESS NOTE ---
DATE: 09/12/2018 SUBJECTIVE: Patient resting comfortably in bed. Daughter present in the room. OBJECTIVE: Vital signs: Vital signs are as follows: Temperature 98.3 degrees, pulse 62, respirations 18, blood pressure 152/49, oxygen saturation is 95%. HEENT: She is atraumatic, normocephalic. Cardiovascular system: S1, S2. Respiratory system: Has occasional rales/rhonchi in the lung church. Abdomen: Soft, nontender. No masses felt. Extremities: Edema in the lower extremities. LABORATORY DATA: WBC 6.82, hematocrit is 31.4, with a platelet count of 281. Sodium is 135, potassium 4.3, chloride is 94, bicarbonate 30. BUN is 30, creatinine 0.9. IMAGING STUDIES: X-ray of the chest: The patient has pulmonary edema, as well as a pleural effusion. ASSESSMENT AND PLAN: 1. Acute respiratory failure. Plan to maintain patient on oxygen via nasal cannula, as well as BiPAP as needed. Pulmonary following. 2. Pneumonia. Continue antibiotics. 3. Urinary tract infection. Continue antibiotics. 4. Pulmonary edema. Use diuretics if necessary. 5. Acute kidney injury superimposed on chronic disease. Continue to follow up on patient's renal function. 6. Anemia. Follow up on hemoglobin, hematocrit. Transfuse packed red blood cells as needed. 7. Chronic obstructive pulmonary disease. Continue nebulized bronchodilators. 8. Atrial fibrillation. Continue rate controlling agent. 9. Deep vein thrombosis prophylaxis. Sequential compression devices. 10. Gastrointestinal prophylaxis. Proton pump inhibitor. cc: Fran Kennedy MD
[2018-09-12] MEDS: DIFLUCAN 200 MG/NS 200 MG/100 ML IVPB IV SCH (14:06)
[2018-09-12] MEDS: RESTORIL PO SCH (20:34)
[2018-09-12] MEDS: MELATONIN PO SCH (20:34)
[2018-09-12] MEDS: DEPAKOTE SPRINKLE PO SCH (20:34)
[2018-09-12] MEDS: CITRACAL + D PO SCH (20:37)
[2018-09-13] MEDS: LASIX IV SCH (01:15)
[2018-09-13] MEDS: CARDIZEM PO SCH ×4 (02:44→21:23)
[2018-09-13] MEDS: DUONEB (A & A) INH SCH ×7 (03:30→23:50)
--- NOTE | 2018-09-13 06:46 | INFECTIOUS DISEASE PROGRESS NO ---
DATE: 09/13/2018 PRESENT ILLNESS: The patient has a methicillin-resistant Staphylococcus aureus pneumonia, Staphylococcus epidermidis urinary tract infection, and scooby esophagitis. MEDICATIONS: The patient's medications include Zyvox for 6 days, daptomycin for 4 days, and fluconazole for 5 days. PHYSICAL EXAMINATION: Vital Signs: Temperature is 99 degrees, pulse 62, respirations 14, blood pressure 185/50. General: This is an ill-appearing, elderly female. She is in some respiratory distress. Head, Eyes, Ears, Nose, and Throat: She can see near objects. She does have decreased hearing. She does not have any white patches on her tongue. Neck: No stiffness. Lungs: There were bilateral rhonchi and many can be heard without even a stethoscope. Cardiovascular: Heart rate is irregular. Abdomen: Soft and nontender. Extremities: The patient has erythema of both legs. There is no cellulitis present. Neurologic: The patient is lethargic. She can move her extremities but she is weak. There is no tremor. LAB AND X-RAY: Chest x-ray shows pulmonary edema and/or bilateral pneumonia. There is no new lab for today yet. ASSESSMENT AND PLAN: The patient has a urinary tract infection and pneumonia, and possible scooby esophagitis. I plan to continue the patient's current antibiotics consisting of Zyvox, daptomycin, and fluconazole. COMORBIDITIES: She is elderly, she has congestive heart failure, and gastroesophageal reflux disease. The patient also is in atrial fibrillation. cc: Sawyer Byrne MD
[2018-09-13 06:51] LABS: ALB/GLOB RATIO 0.9; ALBUMIN 2.9 g/dL (3.5-5.0); CALCIUM 10.4 mg/dL (8.8-10.2); CREATININE 0.9 mg/dL (0.5-0.9); MAGNESIUM 1.5 mg/dL (1.5-2.7); POTASSIUM 4.2 mmol/L (3.5-5.1); TOTAL BILIRUBIN 0.44 mg/dL (0.20-1.00); TOTAL PROTEIN 6.1 g/dL (6.3-8.3)
[2018-09-13] MEDS: ZYVOX 600 MG/D5W 600 MG/300 ML IVPB IV SCH (09:29)
[2018-09-13] MEDS: PROTONIX IV SCH ×2 (09:29→21:24)
[2018-09-13] MEDS: VITAMIN D PO SCH (09:30)
[2018-09-13] MEDS: ICAR-C PO SCH ×2 (09:30→21:23)
[2018-09-13] MEDS: MIRALAX PO SCH ×2 (09:30→21:24)
--- NOTE | 2018-09-13 12:02 | GASTROENTEROLOGY PROGRESS NOTE ---
DATE: 09/13/2018 SUBJECTIVE: She is resting in bed. Her daughter is present at the bedside. The patient continues to have poor oral intake. She denies any nausea or vomiting. She has not moved her bowels for quite some time. She is getting MiraLAX but with no relief. OBJECTIVE: Vital signs: Temperature 98.4 degrees, pulse rate 69, respiratory rate is 17, blood pressure 162/75, saturating 95% on 5 L nasal cannula. General Appearance: Moderately well nourished, lying in bed, in no acute distress. HEENT: Pale conjunctivae. No icterus. Neck: Supple. Abdomen: Soft, nondistended. No guarding. No rebound. Extremities : Bilateral lower extremity edema noted. Neurologic: She is alert and answers simple questions. LABS: Today, sodium, potassium 4.2, chloride 90, bicarb 34, anion gap 10, BUN of 28, creatinine 0.9, glucose of 112, calcium is 10.4. Total bilirubin is 0.44, AST 17, ALT 7, alkaline phosphatase, total protein 6.1, albumin of 2.9. IMAGING: Last chest x-ray was done yesterday which showed pulmonary edema and pleural effusion. The possibility of pneumonia cannot be excluded. IMPRESSION AND PLAN: 1. Oropharyngeal dysphagia. She will continue on mechanical soft diet and Ensure with meals. 2. She will continue on aspiration precautions. 3. Acute respiratory distress and pulmonary edema. She is on Lasix. Pulmonary team is following. 4. Shantal esophagitis. The esophageal biopsies were showing chronic inflammation but she will continue on fluconazole for now. 5. Pneumonia. She is on antibiotics. 6. Urinary tract infection. She is on antibiotics. 7. Acute kidney injury and hyponatremia is improving. 8. Anemia. Hemoglobin is stable. Continue to watch for now and continue with PPIs. 9. Protein calorie malnutrition, decreased p.o. intake. Encourage her to take Ensure 3 times daily. 10. Constipation. We will give her Dulcolax and MiraLAX and we will check a KUB. The above plans discussed with the patient and the family at bedside and all questions were answered. cc: MD Fran Crowe MD Kirk L. Jackson, MD MTDD
[2018-09-13] MEDS: CUBICIN 500 MG in NS 100 ML IV SCH (12:11)
[2018-09-13] MEDS: DULCOLAX PR SCH ×2 (12:11→21:23)
--- NOTE | 2018-09-13 12:37 | Diag Imaging Result Doc PS360 ---
EXAM: KUB ABDOMEN INDICATION: evaluate for constipation or obstruction TECHNIQUE: 2 views COMPARISON: None. FINDINGS: There is retained contrast media throughout the colon from a prior study. There appears to be overall a small to moderate amount of stool in the colon. There is no obstructive bowel pattern identified. No large volume free abdominal gas is appreciated. There is osteopenia and there has been vertebroplasty at several spinal levels. IMPRESSION: Retained contrast media in the colon from a previous study. Nonspecific abdomen, otherwise. Electronically signed by Isak Vazquez 09/13/2018 12:34 PM
--- NOTE | 2018-09-13 12:45 | Extremity Venous Study ---
PROCEDURE NAME: Venous U/S Right Leg - 09/12/2018 PROCEDURE: Right lower extremity venous duplex, and color flow imaging study using the Visual Pro 360 Vivid E9 ultrasound system with a 9 L-D transducer. REFERRING PHYSICIAN: Estephanie Bates MD TAR MAN: Elisha Molina RVT INDICATIONS: Pain and swelling involving the right lower extremity. Rule out deep venous thrombosis. The patient is hospitalized with pneumonia and urinary tract infection. FINDINGS: The right common femoral vein and its branches, deep and superficial femoral veins were satisfactorily imaged. They had flow through them and were compressible. Right popliteal vein and the deep veins below the right knee were all compressible and had flow through them. The superficial veins of the right lower extremity were compressible throughout their length. INTERPRETATION: No evidence of acute deep or superficial venous thrombosis of the right lower extremity. cc: MD Fran Mercedes MD
[2018-09-13] MEDS ORDERED: SODIUM CHLORIDE 0.9% 10 ML ONE (14:19)
[2018-09-13] MEDS: DIFLUCAN 200 MG/NS 200 MG/100 ML IVPB IV SCH (15:58)
--- NOTE | 2018-09-13 16:47 | PROGRESS NOTE ---
DATE: 09/13/2018 SUBJECTIVE: The patient is resting comfortably in bed. OBJECTIVE: Vital signs: Temperature 97.5 degrees, pulse 73, respirations 18, blood pressure is 153/56, oxygen saturation is 100%. HEENT: She is atraumatic, normocephalic. Cardiovascular system: S1, S2. Respiratory system: Has evidence of good air entry bilaterally. Abdomen: Full, nontender. No masses felt. Extremities: Has edema present in both lower extremities which seems to have improved. It worse on the left than on the right lower extremity. Central nervous system: No obvious focal deficits are noted. LABORATORY DATA: Sodium 134, potassium 4.2, chloride is 90, bicarb 34, BUN is 28, creatinine 0.9. Abdominal x-ray shows retained contrast media in the colon from previous study, with nonspecific abdomen. ASSESSMENT AND PLAN: 1. Acute respiratory failure. Maintain patient on oxygen. Use BiPAP if needed. Treat primary lung pathologies, specifically pneumonia as well as pulmonary edema. 2. Pneumonia. Continue antibiotics. 3. Urinary tract infection. Continue antibiotics. 4. Pulmonary edema. Use diuretics as needed. 5. Acute kidney injury superimposed on chronic kidney disease. Follow up on renal function. Avoid nephrotoxic agents. 6. Anemia. Follow up on patient's hemoglobin and hematocrit. Transfuse PRBCs as needed. 7. Chronic obstructive pulmonary disease. Continue nebulized bronchodilators. 8. Atrial fibrillation. Continue rate controlling agent. 9. Deep vein thrombosis prophylaxis. SCDs. 10. Gastrointestinal prophylaxis. PPI. 11. Disposition. Consult with Manager Compensation to assist with discharge planning. cc: Fran Kennedy MD
[2018-09-13] MEDS ORDERED: LASIX IV ONE (20:22)
[2018-09-13] MEDS: DEPAKOTE SPRINKLE PO SCH (21:23)
[2018-09-13] MEDS: CITRACAL + D PO SCH (21:23)
[2018-09-13] MEDS: MELATONIN PO SCH (21:23)
[2018-09-13] MEDS: RESTORIL PO SCH (21:23)
[2018-09-13 22:59] LABS: INR 0.92; PROTIME 13.1 Seconds (11.0-16.0)
[2018-09-14] MEDS: ZYVOX 600 MG/D5W 600 MG/300 ML IVPB IV SCH ×3 (02:42→22:27)
[2018-09-14] MEDS: CARDIZEM PO SCH ×4 (02:53→22:15)
[2018-09-14] MEDS: DUONEB (A & A) INH SCH ×6 (03:50→23:50)
--- NOTE | 2018-09-14 04:55 | PULMONOLOGY PROGRESS NOTE ---
DATE: 09/13/2018 SUBJECTIVE: The patient has been moved to the 4th floor. She was sleeping upon arrival, but was arousable and conversant. She reports her breathing is "okay." She has no specific complaints. OBJECTIVE: Vital Signs: The patient has been afebrile for the last 24 hours. Blood pressure 153/56, heart rate 73, respiratory rate 18, oxygen saturation 100% on 4 L per nasal cannula. HEENT: Pupils are equal and reactive. Oropharynx is clear. Neck: Supple. Chest: Reveals crackles in both lung bases. Cardiac: S1-S2. Abdomen: Soft. Extremities: Trace edema. LABORATORIES: Sodium 134, potassium 4.2, chloride 90, bicarbonate 34, BUN 28, creatinine 0.9. IMPRESSION: A 78-year-old with: 1. Methicillin-resistant Staph aureus. 2. Acute hypoxemic respiratory failure. 3. Bilateral effusions. 4. Gastrointestinal bleeding, with negative EGD. The patient continues to improve. Her oxygen is currently being weaned. RECOMMENDATIONS: 1. Continue bronchial hygiene. 2. Continue antibiotics, per Infectious Disease. 3. Additional diuretics as tolerated. 4. Followup chest x-ray Monday morning. cc: Aravind Marie MD
--- NOTE | 2018-09-14 06:47 | Diag Imaging Result Doc PS360 ---
EXAM: CHEST-PORTABLE HISTORY: abnormal exam TECHNIQUE: Portable chest single view COMPARISON: 09/12/2018 FINDINGS: Poor inspiratory effort. The heart is enlarged and there is pulmonary edema. There is basilar atelectasis and underlying infiltrates on the left. There is also small left pleural effusion. Overall the findings in the lower right lung are less pronounced. IMPRESSION: Slight interval improvement. Electronically signed by Stone Anderson 09/14/2018 6:45 AM
[2018-09-14 08:00] LABS: AGAP 10; ALB/GLOB RATIO 0.9; ALBUMIN 2.9 g/dL (3.5-5.0); ALKALINE PHOSPHATASE 50 U/L (32-104); BUN 20 mg/dL (8-22); CALCIUM 10.2 mg/dL (8.8-10.2); CHLORIDE 94 mmol/L (98-107); COSMO 283; CREATININE 0.8 mg/dL (0.5-0.9); ESTIMATED GFR > 60; GLUCOSE 109 mg/dL (70-104); GOT 19 U/L (10-30); GPT 7 U/L (10-36); MAGNESIUM 1.6 mg/dL (1.5-2.7); PHOSPHORUS 1.9 mg/dL (2.7-4.5); POTASSIUM 4.1 mmol/L (3.5-5.1); SODIUM 140 mmol/L (136-145); TCO2 36 mmol/L (25-35); TOTAL BILIRUBIN 0.46 mg/dL (0.20-1.00); TOTAL PROTEIN 6.1 g/dL (6.3-8.3)
[2018-09-14] MEDS: ICAR-C PO SCH ×2 (08:41→22:14)
[2018-09-14] MEDS: CITRACAL + D PO SCH (08:41)
[2018-09-14] MEDS: VITAMIN D PO SCH (08:41)
[2018-09-14] MEDS: DULCOLAX PR SCH ×3 (08:41→22:17)
[2018-09-14] MEDS: MIRALAX PO SCH (08:41)
[2018-09-14] MEDS: PROTONIX IV SCH ×2 (08:42→22:15)
--- NOTE | 2018-09-14 09:01 | PROVIDER PROGRESS NOTE ---
Progress Note - - SUBJECTIVE No acute overnight events. Afebrile. Per daughter, patient mental status deteriorating and she continues to not take much PO. OBJECTIVE: Last Vital Signs Temp 98.2 F 09/14/18 08:47 Pulse 76 09/14/18 08:47 Resp 16 09/14/18 08:47 BP 171/58 09/14/18 08:47 Pulse Ox 100 09/14/18 08:47 Height 5 ft 6 in Weight 178 lb 9 oz GEN: lethargic, respiratory distress HEENT: anicteric, MMM NECK: no JVD, LAD PULM: decreased BS throughout, bibasilar crackles ABD: soft NT/ND, NABS, no rebound or guarding; soiled bed with stool EXT: RLE with 2+ edema NEURO: somnolent LABS: 09/14/18 07:04 Sodium 140 Potassium 4.1 Chloride 94 L Carbon Dioxide 36 H BUN 20 Creatinine 0.8 Glucose 109 H Phosphorus 1.9 L Magnesium 1.6 Total Bilirubin 0.46 AST 19 ALT 7 L Alkaline Phosphatase 50 Total Protein 6.1 L Albumin 2.9 L IMAGING: EXAM: CHEST-PORTABLE 09/14/2018 HISTORY: abnormal exam TECHNIQUE: Portable chest single view COMPARISON: 09/12/2018 FINDINGS: Poor inspiratory effort. The heart is enlarged and there is pulmonary edema. There is basilar atelectasis and underlying infiltrates on the left. There is also small left pleural effusion. Overall the findings in the lower right lung are less pronounced. IMPRESSION: Slight interval improvement. A/P: Ms. Lopez is a 78 year old woman with Afib, CVA x2, COPD, GERD hypertension, chronic back pain, osteoarthritis, HEFpEF who was admitted with anemia with rectal bleeding as well as CHF exacerbation. EGD on 09/07 revealed esophagitis and small hiatal hernia. MBS 09/10 showed oropharyngeal dysphagia. She deteriorating mental status and continue respiratory distress likely from PNA and CHF exacerbation. #AMS: consider ABG; defer mgmt to primary team #Oropharyngeal dysphagia: cont mechanical soft and ensure with meals; dysphagia precautions #Acute respiratory distress/pulmonary edema: on lasix; pulmonary following, apprec recs #Esophagitis: biopsies negative for scooby; will stop fluconazole #UTI: currently on abx as per ID #PNA: on abx as per ID #LEOBARDO/Hyponatremia: resolved #Anemia: hgb stable; no overt bleeding: continue PPI; normal brown stools #Protein calorie malnutrition: ensure with meals #CHF: managed by cardiology and primary Will sign off. Please call with questions or concerns
[2018-09-14] MEDS: CUBICIN 500 MG in NS 100 ML IV SCH ×2 (13:37→17:42)
[2018-09-14] MEDS ORDERED: NS 250 ML ONE (13:44)
--- NOTE | 2018-09-14 14:02 | PROGRESS NOTE ---
DATE: 09/14/2018 SUBJECTIVE: The patient resting in bed. She does have a poor appetite. She is refusing to eat. OBJECTIVE: Vital signs: Temperature 97.9 degrees, pulse 71, respiratory rate 16, blood pressure 171/58, and oxygen saturation is 95%. HEENT: She is atraumatic, normocephalic. Cardiovascular: S1, S2. Respiratory: Evidence of good air entry bilaterally. Abdomen: Soft, nontender. No masses felt. Extremities: Edema right upper as well as lower extremity, and also edema in the left lower extremity. Central nervous system: The patient is awake. No obvious focal deficit noted. LABORATORY: Sodium 140, potassium 4.1, chloride 94, bicarb 26, BUN is 20 and creatinine 0.8. ASSESSMENT AND PLAN: 1. Acute respiratory failure. Maintain patient on oxygen. Use BiPAP if needed. Treat primary lung pathology. Specifically pneumonia as well as pulmonary edema. Pulmonary team following. 2. Pneumonia. Continue antibiotics. 3. Urinary tract infection. Continue antibiotics. 4. Pulmonary edema. Continue diuretics as needed. Monitor intakes and outputs as well as daily weights. 5. Acute kidney injury superimposed on chronic kidney disease. Follow up on renal function. Avoid nephrotoxic agent. 6. Anemia. Follow up on hemoglobin and hematocrit. Transfuse packed red blood cells if needed. 7. Chronic obstructive pulmonary disease. Use nebulized bronchodilators. 8. Atrial fibrillation. Continue rate controlling agent. 9. Poor oral intake. Discuss this matter with the patient's family. PPN or TPN will worsens the patient's volume status. Family open to PEG tube placement. We will consult with surgery regarding this. 10. Deep vein thrombosis prophylaxis. Sequential compression devices. 11. Gastrointestinal prophylaxis. PPI. cc: Fran Kennedy MD [facility]
--- NOTE | 2018-09-14 16:42 | Diag Imaging Result Doc PS360 ---
EXAM: CHEST-1 VIEW INDICATION: PICC placement TECHNIQUE: One view COMPARISON: 09/14/2018 FINDINGS: The newly placed left PICC line is identified. The tip of the PICC line is somewhat looped. However, it does project over the region of the SVC in the expected position. Correlate clinically for venous return. Infiltrate has worsened at the right lung base since the previous study and possibly at the left lung base suggesting some worsening of pulmonary edema. The lung volumes are lower, however. Pulmonary venous congestion is similar to the previous study. Cardiac silhouette is stable. IMPRESSION: 1.Interval placement of left PICC line that appears somewhat looped at the end. It does project over the region of the lower SVC in the expected position. Correlate clinically for venous return. 2.Some worsening of pulmonary edema. Electronically signed by Isak Vazquez 09/14/2018 4:39 PM
--- NOTE | 2018-09-14 17:30 | INFECTIOUS DISEASE PROGRESS NO ---
DATE: 09/14/2018 PRESENT ILLNESS: The patient has a methicillin-resistant Staph aureus pneumonia, Staph epidermidis urinary tract infection, and Shantal esophagitis. MEDICATIONS: This is the 7th day of treatment with Zyvox, the 5th day of treatment with daptomycin, and the 6th day of treatment with fluconazole. PHYSICAL EXAMINATION: Vital Signs: Temperature is 97.9 degrees, pulse 71, respirations 16, blood pressure 171/68. General: This is a ill-appearing elderly female. Appears to be in a delirium. Head, Eyes, Ears, Nose, and Throat: She does not have any drainage coming from her nose or ears. Neck: No meningismus. Lungs: Bilateral rhonchi. Cardiovascular: Heart rate is irregular. Abdomen: Soft and nontender. Extremities: Patient has diffuse edema. Neurologic: The patient is delirious. She does not respond to verbal stimuli. There is no tremor. LAB AND X-RAY: Chest x-ray shows pulmonary edema and bilateral infiltrates. Creatinine 0.8. GFR is greater than 60. ASSESSMENT AND PLAN: The patient has pneumonia, a urinary tract infection, and esophagitis. My plan is to continue the current antibiotics, consisting of Zyvox, daptomycin, and fluconazole. COMORBIDITIES: The patient is elderly. She has congestive heart failure and gastroesophageal reflux disease. The patient also is in atrial fibrillation. cc: Sawyer Byrne MD
[2018-09-14] MEDS: DEPAKOTE SPRINKLE PO SCH (22:14)
[2018-09-14] MEDS: RESTORIL PO SCH (22:15)
[2018-09-14] MEDS: MELATONIN PO SCH (22:15)
[2018-09-15] MEDS: CARDIZEM PO SCH ×4 (01:33→21:13)
[2018-09-15] MEDS: NORCO-10 PO PRN (01:33)
[2018-09-15] MEDS: DUONEB (A & A) INH SCH ×5 (03:50→20:05)
[2018-09-15 07:22] LABS: BASO# 0.07 X1000 (0.0-0.2); BASO% 0.9 % (0.0-0.8); EOS% 2.5 % (0.0-10.0); HEMATOCRIT 31.6 % (37.0-47.0); HEMOGLOBIN 9.3 g/dL (12.0-16.0); IMM GRAN# 0.07 X1000 (0.0-0.04); IMM GRAN% 0.9 % (0.0-0.5); LYMPH# 1.22 X1000 (1.2-3.4); LYMPH% 15.2 % (20.5-51.1); MCH 29.4 PG (27-31); MCHC 29.4 g/dL (33-37); MONO# 1.26 X1000 (0.11-0.59); MONO% 15.7 % (1.7-9.3); MPV 8.7 FL (7.4-10.4); NEUT# 5.19 X1000 (1.4-6.5); NEUT% 64.8 % (42.2-75.2); PLT 191 X1000 (130-400); RBC 3.16 XMIL (4.2-5.4); WBC 8.01 X1000 (4.8-10.8)
[2018-09-15 07:38] LABS: AGAP 6; BUN 19 mg/dL (8-22); CALCIUM 9.9 mg/dL (8.8-10.2); CHLORIDE 93 mmol/L (98-107); COSMO 278; CREATININE 0.7 mg/dL (0.5-0.9); ESTIMATED GFR > 60; GLUCOSE 96 mg/dL (70-104); POTASSIUM 4.1 mmol/L (3.5-5.1); SODIUM 138 mmol/L (136-145); TCO2 39 mmol/L (25-35)
[2018-09-15] MEDS: ZYVOX 600 MG/D5W 600 MG/300 ML IVPB IV SCH ×2 (09:43→21:13)
[2018-09-15] MEDS: PROTONIX IV SCH ×2 (09:44→21:13)
[2018-09-15] MEDS: ICAR-C PO SCH ×2 (09:44→21:13)
[2018-09-15] MEDS: CITRACAL + D PO SCH (09:44)
[2018-09-15] MEDS: VITAMIN D PO SCH (09:45)
[2018-09-15] MEDS: DULCOLAX PR SCH ×2 (09:51→22:12)
[2018-09-15] MEDS ORDERED: LASIX IV SCH (14:30)
[2018-09-15 14:55] LABS: ALLEN TEST YES; BE 15.8 mmoll (-3.0-3.0); BLOOD TYPE ARTERIAL; HCO3-(ACT) 37.2 mmoll (20.0-26.0); O2HB 93.3 % (95.0-99.0); PO2(98.6) 64 mmHg (60-100); SAMPLE BLOOD; SAO2 96.3 % (95.0-100.0); THB 9.9 g/dL (11.5-17.4); pH(98.6) 7.49 (7.35-7.45)
[2018-09-15 14:58] LABS: MODALITY CANNULA
[2018-09-15 15:03] LABS: PCO2(98.6) 54 mmHg (35-45)
--- NOTE | 2018-09-15 15:06 | GENERAL SURGERY CONSULTATION ---
DATE: 09/15/2018 HISTORY OF PRESENT ILLNESS: Ms. Lopez is an elderly female admitted from [facility] after a fall about 10 days ago. She has had failure to thrive and has not been able to aliment adequately, and has been asked to place a percutaneous endoscopic gastrostomy. PAST MEDICAL HISTORY: Pertinent for atrial fibrillation, congestive heart failure, history of stroke, hypertension, chronic back pain, osteoarthritis, hyponatremia and respiratory failure. 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 MEDICATIONS: Listed. ALLERGIC: She is allergic to IVP dye, contrast, latex and natural rubber. SOCIAL HISTORY: She currently resides at [facility]. She has no tobacco usage or alcohol usage. REVIEW OF SYSTEMS: As noted above. PHYSICAL EXAMINATION: Vital Signs: On exam, she Is afebrile. Heart rate 68, blood pressure 158/52. She is awake and alert. Lungs: Bilateral breath sounds. Heart: Regular rate and rhythm. Abdomen: Soft, nontender. Extremities: She does have some peripheral edema. DIAGNOSTICS/LABS: White count is 8000, hemoglobin 9.3, hematocrit 31.6. Sodium 138, BUN 19, creatinine 0.7. ASSESSMENT: Protein calorie malnutrition and poor appetite. I have been asked to place a percutaneous endoscopic gastrostomy. I do not do those procedures and usually typically those were done by Gastroenterology. If Gastroenterology cannot perform them or if there is some contraindication to percutaneous approach, then we can consider her for an open gastrostomy. cc: Pj Stanford MD
[2018-09-15] MEDS: CUBICIN 500 MG in NS 100 ML IV SCH (15:30)
--- NOTE | 2018-09-15 16:10 | PROGRESS NOTE ---
DATE: 09/15/2018 SUBJECTIVE: This morning Ms. Lopez was sleeping. Her son-in-law was at her bedside. They were concerned that Ms. Lopze has been sleeping for the most part of the day and seems to be extremely lethargic. Reviewing her medications she is on melatonin and Restoril as well as Depakote. OBJECTIVE: Vital Signs: Blood pressure is 163/50, pulse 60, respirations 20, and temperature 98.6. The patient was saturating 100% on 5 L of nasal cannula. General: Ms. Lopez is a 78-year- old female. She is in bed. She does not seem to be in cardiopulmonary distress. HEENT: Mucosa is pink and moist. Anicteric. Acyanotic. Neck: Supple. There is positive JVD. Chest: Air entry is bilaterally reduced. There are diffuse bilateral crackles. Cardiovascular: Regular rate and rhythm. There are no murmurs, no rubs, and no gallops. Abdomen: Soft and nontender. Bowel sounds are present. Extremities: There is about 2+ pedal edema. There is also some edema at the thigh extending to the lateral aspect of the abdominal wall. CAMERA REPAIRMAN: The patient is sleepy and drowsy but easily arousable and will respond occasionally appropriately to questions and then go right back to sleep. LABORATORY DATA: WBC is 8.01, hemoglobin 9.3, and platelet count 191. Chemistry is also reviewed and completely unremarkable. INPUT AND OUTPUT: Urine output was 1,050. The patient has a negative balance of 2,580 during the hospital course. MEDICATIONS: Medications have all been reviewed. I have discontinued the melatonin, Restoril, and Quinault. IMAGING: A chest x-ray this morning continues to show worsening of pulmonary edema. ASSESSMENT: 1. Status post fall at home. 2. Gastrointestinal bleed. The patient is status post 3 units packed red blood cells transfusion. Hemoglobin and hematocrit is now fairly stable. The patient is also status post esophagogastroduodenoscopy. The findings were consistent with scooby esophagitis and a small hiatal hernia. We will continue with the current management. Gastroenterology is also on board. 3. Fluid overload secondary to congestive heart failure with preserved ejection fraction. Cardiology is on board. 4. Atrial fibrillation, rate controlled. The patient is on diltiazem. Cardiology has evaluated her. 5. Moderate pulmonary hypertension with pulmonary artery systolic pressure of 78 mmHg. 6. Acute on chronic hypercarbic respiratory failure. PCO2 is currently at 54. That seems to be the patient at baseline. This was on the so we will repeat an ABG this morning to make sure that the patient's altered mentation has not been because of CO2 retention. 7. Altered mental status (lethargy). The patient is remarkably more lethargic today. Of course, she is on a lot of psychotropic medications which I have discontinued including Restoril, Quinault, and melatonin. We will get an ABG to rule out CO2 retention. 8. In terms of nutritional support. The patient has not had adequate nutrition I understand from yesterday and today. However, EGD did show that she had esophagitis so I would be extremely reluctant to put in an NG tube at this point and she is retaining a lot of fluid as well so I would not want to give her any fluid-based nutrition. We will withhold the current psychotropic medications, improve her hydration status, and see if she would be awake enough tomorrow to eat something. 9. Fluid overload, presumably due to congestive heart failure with preserved ejection fraction and hypoalbuminemia. We are going to given the patient a couple doses of albumin followed by Lasix to see if that improves her fluid status. 10.History of chronic obstructive pulmonary disease, stable. cc: Richi Hernandez MD
[2018-09-15] MEDS: ALBUMIN 25% IV SCH (16:41)
[2018-09-15] MEDS: DEPAKOTE SPRINKLE PO SCH (21:13)
[2018-09-16] MEDS: DUONEB (A & A) INH SCH ×6 (00:05→22:23)
[2018-09-16] MEDS ORDERED: CARDIZEM IV ONE (01:23)
[2018-09-16] MEDS ORDERED: LASIX IV ONE ×2 (01:38→15:26)
[2018-09-16 01:41] LABS: ALLEN TEST YES; BE 19.6 mmoll (-3.0-3.0); BLOOD TYPE ARTERIAL; HCO3-(ACT) 40.2 mmoll (20.0-26.0); METHB 1.4 % (0.0-1.5); O2(CT) 12.9 mL/dL (15.0-23.0); O2HB 93.8 % (95.0-99.0); PO2(98.6) 68 mmHg (60-100); SAMPLE BLOOD; SAO2 97.2 % (95.0-100.0); THB 9.7 g/dL (11.5-17.4); pH(98.6) 7.54 (7.35-7.45)
[2018-09-16] MEDS: CARDIZEM PO SCH ×4 (01:43→22:23)
[2018-09-16 01:44] LABS: MODALITY BI PAP; PCO2(98.6) 52 mmHg (35-45)
[2018-09-16] MEDS: DEPAKOTE SPRINKLE PO SCH ×2 (01:47→21:14)
[2018-09-16 02:18] LABS: MAGNESIUM 1.5 mg/dL (1.5-2.7); POTASSIUM 4.1 mmol/L (3.5-5.1)
[2018-09-16] MEDS ORDERED: SODIUM CHLORIDE 0.9% 10 ML ONE ×2 (07:26→15:33)
[2018-09-16 07:35] LABS: BASO# 0.04 X1000 (0.0-0.2); BASO% 0.3 % (0.0-0.8); EOS# 0.08 X1000 (0.0-0.7); EOS% 0.7 % (0.0-10.0); IMM GRAN% 0.9 % (0.0-0.5); LYMPH# 1.02 X1000 (1.2-3.4); LYMPH% 8.9 % (20.5-51.1); MCH 29.7 PG (27-31); MONO# 1.37 X1000 (0.11-0.59); MPV 8.9 FL (7.4-10.4); NEUT# 8.82 X1000 (1.4-6.5); NEUT% 77.2 % (42.2-75.2); PLT 149 X1000 (130-400); RBC 3.03 XMIL (4.2-5.4); RDW 15.2 % (11.5-14.5); WBC 11.43 X1000 (4.8-10.8)
--- NOTE | 2018-09-16 07:49 | Diag Imaging Result Doc PS360 ---
EXAM: CHEST-PORTABLE - 09/16/2018 HISTORY: decreased o2 sat TECHNIQUE: Portable chest COMPARISON: 09/14/2018 FINDINGS: There is cardiomegaly. Inspiration is somewhat shallow. There is been mild decrease in bilateral infiltrates/edema. There is been interval decrease in small bilateral pleural effusions. There is no pneumothorax identified. The PICC has been withdrawn slightly. IMPRESSION: Mild decrease in bilateral infiltrates/edema. Decrease in bilateral pleural effusions. Electronically signed by Bharathi Remy 09/16/2018 7:46 AM
[2018-09-16 07:53] LABS: AGAP 9; ALB/GLOB RATIO 1.5; ALBUMIN 3.8 g/dL (3.5-5.0); ALKALINE PHOSPHATASE 43 U/L (32-104); BUN 18 mg/dL (8-22); CALCIUM 10.5 mg/dL (8.8-10.2); CHLORIDE 91 mmol/L (98-107); COSMO 280; CREATININE 0.8 mg/dL (0.5-0.9); ESTIMATED GFR > 60; GLUCOSE 115 mg/dL (70-104); GOT 17 U/L (10-30); GPT 6 U/L (10-36); POTASSIUM 3.9 mmol/L (3.5-5.1); SODIUM 139 mmol/L (136-145); TCO2 39 mmol/L (25-35); TOTAL BILIRUBIN 0.85 mg/dL (0.20-1.00); TOTAL PROTEIN 6.3 g/dL (6.3-8.3)
[2018-09-16] MEDS ORDERED: LASIX IV SCH (09:00)
[2018-09-16] MEDS: ZYVOX 600 MG/D5W 600 MG/300 ML IVPB IV SCH ×2 (09:08→22:23)
[2018-09-16] MEDS: PROTONIX IV SCH ×2 (09:15→21:10)
[2018-09-16] MEDS: CITRACAL + D PO SCH (10:52)
[2018-09-16] MEDS: VITAMIN D PO SCH (10:53)
[2018-09-16] MEDS: ICAR-C PO SCH ×2 (10:54→22:23)
[2018-09-16] MEDS: DULCOLAX PR SCH ×2 (10:54→22:23)
[2018-09-16] MEDS: ALBUMIN 25% IV SCH (12:02)
[2018-09-16] MEDS ORDERED: CLINIMIX E 4.25%-5% SOLUTION 1,000 ML IV SCH (12:15)
--- NOTE | 2018-09-16 12:34 | PROGRESS NOTE ---
DATE: 09/16/2018 SUBJECTIVE: Patient is resting in bed. Her oral intake remains poor. OBJECTIVE: Vital Signs: Temperature 99 degrees, pulse 80, respirations 22, blood pressure 169/93, O2 saturation is 100%. HEENT: Atraumatic and normocephalic. Cardiovascular System: S1, S2. Respiratory System: Has occasional rales noted. Abdomen: Soft, nontender. No masses felt. Extremities: Has 1+ edema, right lower extremity. Central Nervous System: The patient is lethargic. Laboratory Data: WBC 11.43, hematocrit 30, platelet count 149,000. ABG 7.54/52/58/97.2 percent. Sodium is 139, potassium 4.1, chloride 91, bicarb 29, BUN is 18, creatinine 0.8. ASSESSMENT AND PLAN: 1. Acute respiratory failure. Continue patient on oxygen. Use BiPAP if needed. Treat primary lung condition, specifically pneumonia as well as pulmonary edema. Pulmonary team following. 2. Pneumonia. Continue antibiotics. 3. Urinary tract infection. Continue antibiotics. 4. Pulmonary edema. Continue diuretics as needed. Monitor intakes and outputs, as well as daily weights. 5. Acute kidney injury. Follow up on renal function. Avoid nephrotoxic agents. 6. Anemia. Follow up hemoglobin and hematocrit. Transfuse packed red blood cells as needed. 7. Chronic obstructive pulmonary disease. Use nebulized bronchodilators. 8. Atrial fibrillation. Continue rate controlling agent. 9. Poor oral intake. We will start patient on total parenteral nutrition. 10. Deep vein thrombosis prophylaxis. Sequential compression devices. 11. Gastrointestinal prophylaxis. Proton pump inhibitor. cc: Fran Kennedy MD
[2018-09-16] MEDS: DILAUDID IV PRN ×2 (14:47→19:38)
[2018-09-16] MEDS ORDERED: LOPRESSOR IV PRN (14:58)
[2018-09-16] MEDS: CUBICIN 500 MG in NS 100 ML IV SCH (16:22)
[2018-09-16 20:04] VITALS: BP 161/102
[2018-09-16] MEDS ORDERED: MORPHINE IV PRN ×2 (21:27→21:41)
--- NOTE | 2018-09-17 09:04 | EKG Report ---
Test Performed on : 09/15/2018 8:02:04 PM Test Reason : irregular heart beat, bijiminey Blood Pressure : / mmHG Vent. Rate : 085 BPM Atrial Rate : 093 BPM P-R Int : 000 ms QRS Dur : 076 ms QT Int : 394 ms P-R-T Axes : 000 052 -56 degrees QTc Int : 468 ms Accelerated Junctional rhythm. with frequent premature ventricular complexes. Nonspecific T wave abnormality Abnormal ECG When compared with ECG of 06-SEP-2018 09:41, Junctional rhythm. has replaced Atrial fibrillation. Inverted T waves have replaced nonspecific T wave abnormality in Inferior leads T wave inversion now evident in Anterior leads Nonspecific T wave abnormality, improved in Lateral leads QT has lengthened Confirmed by Carlin OSORIO, Xavi Marlow ([id number]) on 09/17/2018 3:28:02 PM
--- NOTE | 2018-09-17 15:07 | DISCHARGE SUMMARY ---
ADMISSION DATE: 09/05/2018 DISCHARGE DATE: 09/16/2018 FINAL DIAGNOSES: Include: 1. Acute respiratory failure. 2. Pneumonia. 3. Pulmonary edema. 4. Urinary tract infection. 5. Acute kidney injury. 6. Anemia. 7. Chronic obstructive pulmonary disease. 8. Atrial fibrillation. 9. Poor oral intake. 10. Gastrointestinal bleed. 11. Hyperkalemia. 12. Hyponatremia. 13. Dementia. CONSULTATIONS DONE DURING HOSPITAL STAY: Dr. Richardson managed GI. Dr. Phi Lerma, Nephrology. Dr. Aravind Marie, Pulmonology. Dr. Jonel Sanchez, Cardiology. HOSPITAL COURSE: Ms. Christa Lopez is a 78-year-old female who came in after she fell down while in the snf. The patient is a resident of [facility]. The patient was thought to have a GI bleed at time of her presentation, and she was placed on a PPI with monitoring of her hemoglobin and hematocrit. Eliquis was discontinued. She was seen by the GI Team, and subsequently had upper GI endoscopy done. She was found to have Shantal esophagitis as well as a small hiatal hernia. She was also seen by the Nephrology Team for acute on chronic kidney disease. She was managed conservatively. The patient was noted to have respiratory failure secondary to pulmonary edema, as well as pneumonia. She required diuretics as well as antibiotics. She also required antibiotics for urinary tract infection. The patient's oral intake was noted to be poor. She was placed on Clinimix, and Surgery was consulted for G-tube placement. While receiving care, the patient later on 09/16/2018. She was DO NOT RESUSCITATE, and as such, ACLS protocol was not initiated. cc: Fran Kennedy MD
== END 2018-09-16 22:53 | disposition expired | DRG 377 ==
LOC: SUPCPDRO → ED 14:44 → SUATTDRO 21:01 → 3N 21:01 → 3S 09-06 14:28 → 4N 09-13 13:52
PROVIDERS: ATTEND Internal Medicine
CPT/HCPCS: 36430; 36569; 51702; 70450; 71010; 71045; 72125; 73000; 73030; 73080; 73502; 73562; 74000; 74018; 74230; 76770; 80048; 80053; 80069; 80164; 80165; 81001; 82270; 82550; 82570; 82805; 83605; 83735; 83880; 83935; 84100; 84132; 84134; 84145; 84156; 84300; 84443; 84484; 84540; 85014; 85018; 85025; 85610; 85651; 86140; 86850; 86900; 86901; 86920; 87040; 87070; 87077; 87088; 87186; 87205; 87275; 87276; 87804; 88305; 88313; 92611; 93005; 93010; 93971; 94640; 94660; 94761; 94799; 96374; 96375; 97110; 97162; 99285; A9270; C9113; J0131; J0692; J0878; J1170; J1450; J1940; J2020; J2270; J2405; J3430; J7040; J7050; P9016; P9047; S0164